=== PATIENT | female | born 1975 | race Two or more races ===

== ENCOUNTER 2020-09-04 01:02 | Emergency (ER) | payer OTHER, SELFPAY ==
[2020-09-04 01:06] VITALS: BP 136/98; PULSE 79; RESP 20; TEMP 37.6; O2SAT 99; BMI 40.7
--- NOTE | 2020-09-04 03:12 | ED.BACK ---
HPI - Back Pain/Injury General Chief Complaint: Back Pain/Injury Stated Complaint: LOWER BACK PAIN Time Seen by Provider: 09/04/20 02:48 History of Present Illness HPI Narrative: This is a 45-year-old female with past medical history of chronic back and arthritis who presents with acute onset left lower back pain and radiation into the left lower extremity without associated numbness / tingling / weakness. In addition, patient denies any trauma associated with this and also denies any fevers, chills, nausea, vomiting, diarrhea, urinary pain/ burning /frequency. Patient states she is not taken anything for the discomfort at this time. Related Data Allergies Allergy/AdvReac Type Severity Reaction Status Date / Time acetaminophen [From PERCOCET] Allergy Unknown ITCHING Verified 09/04/20 01:11 oxycodone [From PERCOCET] Allergy Unknown ITCHING Verified 09/04/20 01:11 Review of Systems Review of Systems: Pertinent positives and negatives as stated in the HPI 10 point review of systems is otherwise negative. [facility] Past Medical History Source: nursing notes reviewed Medical History Arthritis Back pain Surgical History History of hysterectomy Social History Social History Advance Directives: No Advance Directives Information Provided: No Physical Exam Vital Signs: Vital Signs: Vital Signs Temp Pulse Resp BP Pulse Ox 09/04/20 01:06 99.7 F 79 20 136/98 H 99 Body Mass Index 40.7 VITAL SIGNS: Reviewed. GENERAL: Well developed, well nourished, in no acute distress. HEAD: Normocephalic/atraumatic, EYES: PERRLA, EOMI intact without pain, no nystagmus/pallor/icterus noted EARS: Ext canals without abnormality, TMs non-bulging and non-erythematous NOSE: Nares patent bilateral OROPHARYNX: no oral lesions noted, posterior pharynx clear and non-erythematous without noted tonsillar enlargement/erythema/exudates NECK: Supple, no adenopathy LUNGS: Normal breath sounds. No adventitious sounds or accessory muscle use. SpO2<99> CARDIOVASCULAR: Regular rate and rhythm without noted murmurs, no JVD or lower extremity edema. ABDOMEN: Soft, non-tender, non-distended with bowel sounds. No rigidity. No guarding. No palpable masses or hernias noted MUSCULOSKELETAL: No tenderness, deformities, or effusions noted on gross inspection. EXTREMITIES: No cyanosis, clubbing or edema. SKIN: Inspection of the skin reveals no rashes, ulcerations, jaundice, pallor, or petechiae. NEUROLOGIC: Alert and oriented x 4. Strength and sensation to light touch were grossly intact x 4. Course Course Course Narrative: This is a 45-year-old female with history and clinical presentation most consistent with Lumbago but will rule out UTI and doubt renal colic. On review of urinalysis it is negative for any evidence of infection and urinary is also negative. Patient received a combination of analgesics as well as a lidocaine patch. Unable to re-evaluate as patient became upset and eloped. MDM - Back Pain/Injury Lab Data Labs: Lab Results 09/04/20 Range/Units 03:04 Urine Color YELLOW Urine Appearance CLEAR Urine pH 6.0 (5.0-8.0) Ur Specific [place] >= 1.030 H (1.005-1.025) Urine Protein NEG (NEG-TRACE) MG/DL Urine Glucose (UA) NEG (NEG) MG/DL Urine Ketones NEG (NEG) MG/DL Urine Blood NEG (NEG) Urine Nitrite NEG (NEG) Ur Leukocyte Esterase NEG (NEG) Urine Test NEGATIVE (NEGATIVE) Discharge Plan Discharge Clinical Impression: Back pain Patient Disposition: Elopement Interventions: ED Discharge Assessment Last Done: 09/04/20 03:36 Discharge Date/Time: 09/04/20 03:37
[2020-09-04] MEDS: Lidocaine 4 % Patch ADH..PATCH 1 PATCH TRANSDERMA (03:18)
[2020-09-04] MEDS: Ketorolac Tromethamine 15 MG/ML VIAL IM (03:18)
--- NOTE | 2020-09-04 03:27 | PC.NURSE ---
pt wants to leave without paperwork. does not want to wait for urine sample.
[2020-09-04 03:34] LABS: Appearance Urine CLEAR; Color Urine YELLOW; Glucose Urine UA NEG (NEG); Leukocyte Esterase Urine NEG (NEG); Nitrite Urine NEG (NEG); Specific Gravity - Urine >= 1.030 (1.005-1.025); Urine Blood NEG (NEG); Urine Ketones NEG (NEG); Urine Protein NEG (NEG-TRACE)
[2020-09-04 03:35] LABS: UPreg QC Valid YES; Urine Pregnancy NEGATIVE (NEGATIVE)
== END 2020-09-04 03:37 | disposition left against medical advice (07) ==
PROVIDERS: Emergency Provider Student in an Organized Health Care Education/Training Program; PCP Internal Medicine
DX: M54.5 Low back pain (principal)
CPT/HCPCS: 81003; 81025; 96372; 99283; 99284; J1885

== ENCOUNTER 2020-11-12 13:08 | Outpatient (REF) | payer OTHER, SELFPAY ==
[2020-11-12 13:47] LABS: COVID-19 Test Negative (Negative); IDNOW Serial# 55D5AD1C
== END 2020-11-12 13:09 | disposition home or self-care (01) ==
LOC: HO.EMPCOV 13:08
PROVIDERS: Visit Provider Internal Medicine
DX: Z20.828 Contact with and (suspected) exposure to other viral communicable diseases (principal)
CPT/HCPCS: 87635; C9803

== ENCOUNTER 2020-11-26 10:57 | Outpatient (REF) | payer OTHER, SELFPAY ==
[2020-11-26 11:31] LABS: COVID-19 Test Negative (Negative); IDNOW Serial# 55D5AD1C
== END 2020-11-26 10:58 | disposition home or self-care (01) ==
LOC: HO.EMPCOV 10:57
PROVIDERS: Visit Provider Internal Medicine
DX: Z20.822 Contact with and (suspected) exposure to COVID-19 (principal)
CPT/HCPCS: 36415; 87635; C9803

== ENCOUNTER 2020-12-07 07:58 | Outpatient (REF) | payer OTHER, SELFPAY ==
[2020-12-07 08:20] LABS: COVID-19 Test Negative (Negative)
== END 2020-12-07 07:59 | disposition home or self-care (01) ==
LOC: HO.EMPCOV 07:58
PROVIDERS: Visit Provider Internal Medicine
DX: Z20.822 Contact with and (suspected) exposure to COVID-19 (principal)
CPT/HCPCS: 36415; 87635; C9803

== ENCOUNTER 2020-12-14 08:03 | Outpatient (REF) | payer OTHER, SELFPAY ==
[2020-12-14 11:28] LABS: MANUAL DIFF FLAG NO
[2020-12-14 11:32] LABS: Basophils Percent Auto 0.5 % (0-2); Eosinophils Absolute Auto 0.1 X10*3/uL (0.0-0.4); Hematocrit 45.1 % (37-47); Hemoglobin 14.5 g/dl (12.0-16.0); Lymphocytes Absolute Auto 2.2 X10*3/uL (1.2-4.9); Lymphocytes Percent Auto 51.3 % (20-40); Mean Corpuscular HGB Conc 32.2 g/dl (31.0-35.0); Mean Corpuscular Hemoglobin 27.8 pg (27.0-33.0); Mean Corpuscular Volume 86.6 fL (80-98); Mean Platelet Volume 11.6 fL (9.4-12.3); Monocytes Absolute Auto 0.4 X10*3/uL (0.1-1.2); Monocytes Percent Auto 9.4 % (2-11); Neutrophils Absolute Auto 1.6 X10*3/uL (2.0-8.3); Neutrophils Percent Auto 35.8 % (45-73); Platelet Count 201 X10*3/uL (160-400); Red Blood Count 5.21 X10*6/uL (4.20-5.50); Red Cell Distribution Width 13.5 % (11.0-16.0); White Blood Count 4.4 X10*3/uL (4.8-10.8)
[2020-12-14 12:21] LABS: Alanine Aminotransferase 57 U/L (0-31); Albumin Level 4.4 g/dL (3.5-5.0); Alkaline Phosphatase 72 U/L (39-117); Anion Gap 12 (12-20); Aspartate Amino Transferase 30 U/L (5-31); Bilirubin Total 0.6 mg/dL (0.0-1.0); Blood Urea Nitrogen 15 mg/dL (9-16); Calcium 9.5 mg/dL (8.4-10.2); Carbon Dioxide 28 mmol/L (22-29); Chloride 106 mmol/L (96-108); Estimated Glomerular Filt Rate > 60; Glucose Fasting 96 mg/dL (60-99); Potassium 4.7 mmol/L (3.3-5.1); Sodium 141 mmol/L (135-145); Total Protein 7.2 g/dL (6.5-8.0)
== END 2020-12-14 08:04 | disposition home or self-care (01) ==
LOC: HO.WFDLDS 08:03
PROVIDERS: Visit Provider Internal Medicine
DX: R42 Dizziness and giddiness (principal)
CPT/HCPCS: 36415; 80053; 85025

== ENCOUNTER → 2021-01-03 10:30 | Outpatient (BNVA) | payer OTHER, SELFPAY | PROVIDERS: Visit Provider Anesthesiology | DX: M47.27 Other spondylosis with radiculopathy, lumbosacral region (principal); M51.36 Other intervertebral disc degeneration, lumbar region | CPT/HCPCS: 99212 ==

== ENCOUNTER 2021-01-16 16:45 | Outpatient (REF) | payer OTHER, SELFPAY ==
--- NOTE | ~2021-01-16 | XR_ITS ---
EXAMINATION: XR FOOT, RIGHT CLINICAL INFORMATION: M79.674 - Pain in right toe(s). COMPARISON: None. TECHNIQUE: AP, lateral, and oblique views of the right foot. FINDINGS: There is no acute or healing fracture, dislocation, destructive process. The bony mineralization is normal. There is no focal joint narrowing or erosive change. There are posterior and plantar calcaneal spurs. The retrocalcaneal recess is preserved. The subtalar joint is unremarkable. XR/XR foot RT min 3V IMPRESSION: 1. Posterior and plantar calcaneal spurs. 2. No joint narrowing or erosive changes.
== END 2021-01-16 16:46 | disposition home or self-care (01) ==
LOC: HO.XRAY 16:45
PROVIDERS: PCP Internal Medicine; Visit Provider Internal Medicine
DX: M79.674 Pain in right toe(s) (principal)
CPT/HCPCS: 73630

== ENCOUNTER 2021-02-05 06:08 | Outpatient (REF) | payer OTHER, SELFPAY ==
--- NOTE | ~2021-02-05 | FL_ITS ---
EXAMINATION: XR FLUOROSCOPY WITH IMAGES CLINICAL INFORMATION: Spondylosis with radiculopathy COMPARISON: Previous exam 03/06/2020 TECHNIQUE: Fluoroscopy performed by Meliza Webb NP. Fluoroscopy time: 0.7 minutes DAP: 12 Gycm2 Images: 2 FINDINGS: Images demonstrate needles and contrast injection along the lateral left L3 and L5 vertebral bodies for left L3 L4 and L5 epidural injection. FL/FL guidance in treatment room IMPRESSION: Fluoroscopy guidance for left spinal epidural injection.
== END 2021-02-05 06:09 | disposition home or self-care (01) ==
LOC: HO.RADIR 06:08
PROVIDERS: Visit Provider Anesthesiology
DX: M47.27 Other spondylosis with radiculopathy, lumbosacral region (principal); M51.36 Other intervertebral disc degeneration, lumbar region
CPT/HCPCS: 64483; 64484; J3300; Q9967

== ENCOUNTER 2021-02-06 08:40 | Outpatient (REF) | payer OTHER, SELFPAY ==
[2021-02-06 10:09] LABS: Alanine Aminotransferase 46 U/L (0-31); Albumin Level 4.9 g/dL (3.5-5.0); Alkaline Phosphatase 73 U/L (39-117); Anion Gap 18 (12-20); Aspartate Amino Transferase 23 U/L (5-31); Bilirubin Total 0.5 mg/dL (0.0-1.0); Blood Urea Nitrogen 15 mg/dL (9-16); Calcium 10.4 mg/dL (8.4-10.2); Carbon Dioxide 26 mmol/L (22-29); Chloride 104 mmol/L (96-108); Cholesterol 178 mg/dL; Estimated Glomerular Filt Rate > 60; Glucose Fasting 103 mg/dL (60-99); HDL Cholesterol 54 mg/dL; LDL Cholesterol Calculated 107 mg/dl; Potassium 5.2 mmol/L (3.3-5.1); Sodium 143 mmol/L (135-145); Total Protein 8.1 g/dL (6.5-8.0); Triglycerides 88 mg/dL
== END 2021-02-06 08:41 | disposition home or self-care (01) ==
LOC: HO.LAB 08:40
PROVIDERS: PCP Internal Medicine; Visit Provider Internal Medicine
DX: E66.9 Obesity, unspecified (principal)
CPT/HCPCS: 36415; 80053; 80061

== ENCOUNTER 2021-02-15 14:59 | Outpatient (REF) | payer OTHER, SELFPAY ==
--- NOTE | ~2021-02-15 | MM_ITS ---
EXAMINATION: MM SCREENING DIGITAL BREAST TOMOSYNTHESIS, BILATERAL CLINICAL INFORMATION: Screening. Asymptomatic. The lifetime risk of breast cancer based on the Tyrer-Cuzick Model is 9%. COMPARISON: Mammography: 09/09/2018 (new baseline) TECHNIQUE: Digital breast tomosynthesis is performed in both the craniocaudal and mediolateral oblique views along with computer-aided detection (CAD). Synthesized 2D images are generated from the tomosynthesis. FINDINGS: There are scattered areas of fibroglandular density (ACR BI-RADS breast composition Category b). There are no significant masses, abnormal calcifications, or other abnormalities. Parenchymal pattern is similar to initial new baseline exam. The skin contours are smooth. No significant changes. MM/MM tomosynthesis screening BI IMPRESSION: No mammographic evidence of malignancy. ASSESSMENT: BI-RADS 1: Negative RECOMMENDATION: Routine annual mammography screening. This patient's information was entered into a reminder system with a target due date for their next mammogram.
== END 2021-02-15 15:00 | disposition home or self-care (01) ==
LOC: HO.MAMMO 14:59
PROVIDERS: Visit Provider Internal Medicine
DX: Z12.31 Encounter for screening mammogram for malignant neoplasm of breast (principal)
CPT/HCPCS: 77063; 77067

== ENCOUNTER 2021-02-20 12:08 | Outpatient (REF) | payer OTHER, SELFPAY ==
[2021-02-20 12:51] LABS: COVID-19 Test Negative (Negative)
== END 2021-02-20 12:09 | disposition home or self-care (01) ==
LOC: HO.EMPCOV 12:08
PROVIDERS: Visit Provider Internal Medicine
DX: Z20.822 Contact with and (suspected) exposure to COVID-19 (principal)
CPT/HCPCS: 36415; 87635; C9803

== ENCOUNTER → 2021-03-07 14:07 | Outpatient (REF) | payer OTHER, SELFPAY | LOC: HO.SL 14:07 | PROVIDERS: PCP Internal Medicine; Visit Provider Internal Medicine | DX: G47.33 Obstructive sleep apnea (adult) (pediatric) (principal) | CPT/HCPCS: 95806 ==

== ENCOUNTER → 2021-03-28 07:39 | Outpatient (BNVA) | payer OTHER, SELFPAY | PROVIDERS: PCP Internal Medicine; Visit Provider Internal Medicine Endocrinology, Diabetes & Metabolism | DX: E16.2 Hypoglycemia, unspecified (principal); E66.01 Morbid (severe) obesity due to excess calories; Z68.41 Body mass index [BMI] 40.0-44.9, adult | CPT/HCPCS: 99202 ==

== ENCOUNTER → 2021-04-01 15:30 | Outpatient (BNVA) | payer OTHER, SELFPAY | PROVIDERS: PCP Internal Medicine; Visit Provider Internal Medicine | DX: E66.01 Morbid (severe) obesity due to excess calories (principal); G47.33 Obstructive sleep apnea (adult) (pediatric) | CPT/HCPCS: 99202 ==

== ENCOUNTER 2021-04-13 07:19 | Outpatient (REF) | payer OTHER, SELFPAY | END 2021-04-13 07:20 | disposition home or self-care (01) | LOC: HO.LAB 07:19 | PROVIDERS: PCP Internal Medicine; Visit Provider Internal Medicine Endocrinology, Diabetes & Metabolism | DX: Z13.89 Encounter for screening for other disorder (principal) ==

== ENCOUNTER 2021-04-16 07:20 | Outpatient (REF) | payer OTHER, SELFPAY ==
[2021-04-16 09:13] LABS: Hematocrit 44.2 % (37-47); Hemoglobin 14.2 g/dl (12.0-16.0); Mean Corpuscular HGB Conc 32.1 g/dl (31.0-35.0); Mean Corpuscular Hemoglobin 28.3 pg (27.0-33.0); Mean Corpuscular Volume 88.2 fL (80-98); Mean Platelet Volume 11.4 fL (9.4-12.3); Platelet Count 192 X10*3/uL (160-400); Red Blood Count 5.01 X10*6/uL (4.20-5.50); Red Cell Distribution Width 13.7 % (11.0-16.0); White Blood Count 4.4 X10*3/uL (4.8-10.8)
[2021-04-16 09:17] LABS: Glucose Fasting 96 mg/dL (60-99)
[2021-04-16 09:34] LABS: Estimated Average Glucose 111 mg/dL; Hemoglobin A1c % 5.5 %
[2021-04-16 09:36] LABS: Anion Gap 13 (12-20); Blood Urea Nitrogen 15 mg/dL (9-16); Calcium 9.8 mg/dL (8.4-10.2); Carbon Dioxide 28 mmol/L (22-29); Chloride 106 mmol/L (96-108); Estimated Glomerular Filt Rate > 60; Glucose Fasting 93 mg/dL (60-99); Potassium 4.4 mmol/L (3.3-5.1); Sodium 143 mmol/L (135-145)
[2021-04-16 09:52] LABS: Free T4 (Free Thyroxine) 0.92 ng/dL (0.71-1.85); Thyroid Stimulating Hormone 0.49 uIU/mL (0.32-4.0)
[2021-04-16 09:59] LABS: Glucose 1 Hour 128 mg/dL
[2021-04-16 10:32] LABS: Glucose 2 Hour 99 mg/dL
[2021-04-16 11:42] LABS: Glucose 3 Hour 73 mg/dL
[2021-04-16 14:01] LABS: Glucose 4 Hour 74 mg/dL
[2021-04-18 00:56] LABS: Adrenocorticotropic Hormone 8 pg/mL (6-50)
[2021-04-18 04:56] LABS: C Peptide 3.48 ng/mL (0.80-3.85)
[2021-04-18 06:57] LABS: DHEA Sulfate 129 mcg/dL (19-231); Insulin Level Total 26.4 uIU/mL
[2021-04-19 14:32] LABS: Insulin Growth Factor 2 626 ng/mL (267-616)
[2021-04-20 17:31] LABS: Insulinoma associated 2 aatb <5.4 U/mL (<5.4)
[2021-04-24 23:21] LABS: Insulin Auto Antibody <0.4 U/mL (<0.4)
[2021-05-01 07:28] LABS: Chlorpropamide None Detected; Glimepiride None Detected; Glipizide None Detected; Glyburide None Detected; Nateglinide None Detected; Pioglitazone None Detected; Repaglinide None Detected; Rosiglitazone None Detected; Tolazamide None Detected; Tolbutamide None Detected
== END 2021-04-16 07:21 | disposition home or self-care (01) ==
LOC: HO.LAB 07:20
PROVIDERS: PCP Internal Medicine; Visit Provider Internal Medicine Endocrinology, Diabetes & Metabolism
DX: E16.2 Hypoglycemia, unspecified (principal)
CPT/HCPCS: 36415; 80048; 80337; 82010; 82024; 82533; 82627; 82952; 83036; 83525; 83789; 84206; 84439; 84443; 84681; 85027; 86337

== ENCOUNTER → 2021-04-19 11:02 | Outpatient (BNVA) | payer OTHER, SELFPAY | PROVIDERS: PCP Internal Medicine; Visit Provider Dietitian, Registered | DX: E66.01 Morbid (severe) obesity due to excess calories (principal); Z68.41 Body mass index [BMI] 40.0-44.9, adult | CPT/HCPCS: 97802 ==

== ENCOUNTER 2021-05-13 15:09 | Outpatient (REF) | payer OTHER, SELFPAY ==
--- NOTE | ~2021-05-13 | XR_ITS ---
EXAMINATION: XR ANKLE, LEFT CLINICAL INFORMATION: Injury COMPARISON: None TECHNIQUE: AP, lateral, and mortise views of the left ankle. FINDINGS: Bone alignment is normal. No fracture or dislocation is seen. The ankle mortise is normal. There is lateral soft tissue swelling. There are small calcaneal spurs. XR/XR ankle LT min 3V IMPRESSION: No fracture or dislocation. Lateral soft tissue swelling.
[2021-05-13 17:04] LABS: Alanine Aminotransferase 30 U/L (0-31); Albumin Level 4.5 g/dL (3.5-5.0); Alkaline Phosphatase 75 U/L (39-117); Anion Gap 11 (12-20); Aspartate Amino Transferase 18 U/L (5-31); Bilirubin Total 0.2 mg/dL (0.0-1.0); Blood Urea Nitrogen 14 mg/dL (9-16); Calcium 9.7 mg/dL (8.4-10.2); Carbon Dioxide 27 mmol/L (22-29); Chloride 107 mmol/L (96-108); Estimated Glomerular Filt Rate > 60; Glucose Random 92 mg/dL (60-115); Potassium 4.1 mmol/L (3.3-5.1); Sodium 141 mmol/L (135-145); Total Protein 7.2 g/dL (6.5-8.0)
[2021-05-17 15:17] LABS: Insulin Growth Factor 2 644 ng/mL (267-616)
== END 2021-05-13 15:10 | disposition home or self-care (01) ==
LOC: HO.HMGCX 15:09
PROVIDERS: Internal Medicine Endocrinology, Diabetes & Metabolism; PCP Internal Medicine; Visit Provider Nurse Practitioner Family
DX: E16.2 Hypoglycemia, unspecified (principal); S99.912A Unspecified injury of left ankle, initial encounter
CPT/HCPCS: 36415; 73610; 80053; 83789

== ENCOUNTER → 2021-05-15 13:22 | Outpatient (BNVA) | payer OTHER, SELFPAY | PROVIDERS: PCP Internal Medicine; Visit Provider Internal Medicine ==

== ENCOUNTER → 2021-06-04 08:46 | Outpatient (BNVA) | payer OTHER, SELFPAY | PROVIDERS: PCP Internal Medicine; Visit Provider Internal Medicine Endocrinology, Diabetes & Metabolism ==

== ENCOUNTER 2021-06-08 07:20 | Outpatient (REF) | payer OTHER, SELFPAY ==
[2021-06-08 08:08] LABS: Glucose Fasting 97 mg/dL (60-99)
[2021-06-14 13:52] LABS: IGF-1 (Somatomedin C) 202 ng/mL (52-328); IGF-1 Z Score (Female) 0.8 SD (-2.0 - +2.0)
[2021-06-14 16:02] LABS: Insulin Growth Factor 2 630 ng/mL (267-616)
[2021-06-22 16:27] LABS: IGF Binding Protein 2 38 ng/mL (38-267)
== END 2021-06-08 07:21 | disposition home or self-care (01) ==
LOC: HO.LAB 07:20
PROVIDERS: PCP Internal Medicine; Visit Provider Internal Medicine Endocrinology, Diabetes & Metabolism
DX: E16.2 Hypoglycemia, unspecified (principal)
CPT/HCPCS: 36415; 82947; 83519; 83789; 84305

== ENCOUNTER 2021-08-21 08:06 | Outpatient (REF) | payer OTHER, SELFPAY ==
--- NOTE | 2021-08-21 08:09 | EMG_ITS ---
This is a 46-year-old woman with more than 1 year history of bilateral upper extremity pain, numbness, and tingling with the right side worse than the left. She is on no medications. Neurological examination is normal. No Tinel or Phalen sign. IMPRESSION: Rule out carpal tunnel syndrome. Nerve conduction EMG study: Normal electrodiagnostic study of both upper extremities with no evidence of carpal tunnel syndrome or nerve entrapment. Normal EMG of the right C5-T1 innervated muscles. MD SANDEE Nielsen/ALEKSANDER / [id number]
== END 2021-08-21 08:07 | disposition home or self-care (01) ==
LOC: HO.NEURO 08:06
PROVIDERS: Visit Provider Internal Medicine
DX: G56.00 Carpal tunnel syndrome, unspecified upper limb (principal)
CPT/HCPCS: 95885; 95913

== ENCOUNTER → 2021-08-28 08:17 | Outpatient (BNVA) | payer OTHER, SELFPAY | PROVIDERS: Visit Provider Orthopaedic Surgery | DX: M65.312 Trigger thumb, left thumb (principal); R20.0 Anesthesia of skin; M79.642 Pain in left hand; M79.641 Pain in right hand; M47.27 Other spondylosis with radiculopathy, lumbosacral region; G47.33 Obstructive sleep apnea (adult) (pediatric); E66.01 Morbid (severe) obesity due to excess calories; Z68.41 Body mass index [BMI] 40.0-44.9, adult; Z88.6 Allergy status to analgesic agent | CPT/HCPCS: 99202 ==

== ENCOUNTER → 2021-09-18 07:33 | Outpatient (BNVA) | payer OTHER, SELFPAY | PROVIDERS: Visit Provider Internal Medicine | DX: L68.0 Hirsutism (principal); E16.2 Hypoglycemia, unspecified; E66.01 Morbid (severe) obesity due to excess calories; E55.9 Vitamin D deficiency, unspecified; Z79.899 Other long term (current) drug therapy | CPT/HCPCS: 99212 ==

== ENCOUNTER 2021-09-20 06:10 | Outpatient (REF) | payer OTHER, SELFPAY ==
[2021-09-20 07:29] LABS: Glucose Fasting 102 mg/dL (60-99)
[2021-09-20 07:35] LABS: Alanine Aminotransferase 78 U/L (0-31); Albumin Level 4.4 g/dL (3.5-5.0); Alkaline Phosphatase 67 U/L (39-117); Anion Gap 12 (12-20); Aspartate Amino Transferase 41 U/L (5-31); Bilirubin Total 0.8 mg/dL (0.0-1.0); Blood Urea Nitrogen 15 mg/dL (9-16); Calcium 9.3 mg/dL (8.4-10.2); Carbon Dioxide 24 mmol/L (22-29); Chloride 109 mmol/L (96-108); Cholesterol 158 mg/dL; Estimated Glomerular Filt Rate > 60; Glucose Random 104 mg/dL (60-115); HDL Cholesterol 43 mg/dL; LDL Cholesterol Calculated 90 mg/dl; Potassium 4.2 mmol/L (3.3-5.1); Sodium 141 mmol/L (135-145); Total Protein 7.3 g/dL (6.5-8.0); Triglycerides 126 mg/dL
[2021-09-20 07:56] LABS: Free T4 (Free Thyroxine) 0.94 ng/dL (0.71-1.85); Thyroid Stimulating Hormone 1.08 uIU/mL (0.32-4.0)
[2021-09-20 08:01] LABS: Glucose 1 Hour 158 mg/dL
[2021-09-20 08:14] LABS: Estimated Average Glucose 117 mg/dL; Hemoglobin A1c % 5.7 %
[2021-09-20 09:02] LABS: Glucose 2 Hour 115 mg/dL
[2021-09-21 14:31] LABS: LDL Cholesterol Direct 92 mg/dL (<100)
[2021-09-22 08:47] LABS: Follicle Stimulating Hormone 74.6 mIU/mL; Lutenizing Hormone 34.1 mIU/mL; Prolactin 19.3 ng/mL
[2021-09-23 16:57] LABS: DHEA Sulfate 106 mcg/dL (19-231); Sex Hormone Binding Globulin 15 nmol/L (17-124)
[2021-09-23 17:52] LABS: Adrenocorticotropic Hormone 21 pg/mL (6-50)
[2021-09-26 13:56] LABS: Testosterone, Free 5.2 pg/mL (0.1-6.4); Testosterone, Total 27 ng/dL (2-45)
[2021-09-27 00:36] LABS: Androstenedione 164 ng/dL
[2021-09-28 23:12] LABS: Insulin Growth Factor 2 751 ng/mL (267-616)
[2021-10-09 10:51] LABS: Estradiol, Ultrasensitive 14 pg/mL
== END 2021-09-20 06:11 | disposition home or self-care (01) ==
LOC: HO.LAB 06:10
PROVIDERS: Internal Medicine Endocrinology, Diabetes & Metabolism; PCP Internal Medicine; Visit Provider Internal Medicine
DX: L68.0 Hirsutism (principal); E55.9 Vitamin D deficiency, unspecified; E16.2 Hypoglycemia, unspecified
CPT/HCPCS: 36415; 80053; 80061; 82024; 82157; 82306; 82533; 82627; 82670; 82681; 83001; 83002; 83036; 83498; 83721; 83789; 84146; 84270; 84402; 84403; 84439; 84443

== ENCOUNTER 2021-09-25 07:51 | Outpatient (REF) | payer OTHER, SELFPAY ==
[2021-09-25 08:52] LABS: Alanine Aminotransferase 92 U/L (0-31); Albumin Level 4.5 g/dL (3.5-5.0); Alkaline Phosphatase 70 U/L (39-117); Aspartate Amino Transferase 50 U/L (5-31); Bilirubin Direct 0.2 mg/dL (0.0-0.5); Bilirubin Total 0.5 mg/dL (0.0-1.0); Total Protein 7.2 g/dL (6.5-8.0)
== END 2021-09-25 07:52 | disposition home or self-care (01) ==
LOC: HO.LAB 07:51
PROVIDERS: PCP Internal Medicine; Visit Provider Internal Medicine
DX: E66.01 Morbid (severe) obesity due to excess calories (principal); Z68.41 Body mass index [BMI] 40.0-44.9, adult
CPT/HCPCS: 36415; 80076

== ENCOUNTER 2021-10-01 07:40 | Outpatient (REF) | payer OTHER, SELFPAY ==
--- NOTE | ~2021-10-01 | CT_ITS ---
EXAMINATION: CT ABDOMEN AND PELVIS WITH CONTRAST CLINICAL INFORMATION: Hypoglycemia. COMPARISON: Previous abdominal ultrasound and MRI pelvis from 2019 TECHNIQUE: Multidetector volumetric images were obtained from the superior aspect of the liver through the pubic symphysis following administration 85 mL of Omnipaque 350 intravenous contrast. Sagittal and coronal reformatted images were obtained on the technologist's workstation. Oral contrast: Yes. This CT examination was performed using dose optimization techniques as appropriate, variously including the following: *Automated exposure control *Adjustment of mA and/or kV according to patient size (this includes techniques or standardized protocols for targeted exams where dose is matched to indication/reason for exam; i.e. extremities or head) *Use of iterative reconstruction technique DLP: 778 mGy-cm FINDINGS: LIVER, GALLBLADDER, AND BILIARY TREE: The liver is low in attenuation suggestive of fatty infiltration. The liver is otherwise unremarkable. The gallbladder is unremarkable with no evidence of radiopaque gallstones, gallbladder wall thickening, or obvious pericholecystic inflammatory changes. PANCREAS: Unremarkable. SPLEEN: Unremarkable. ADRENAL GLANDS: Unremarkable. KIDNEYS AND URETERS: The kidneys are normal in size, shape, and attenuation. No hydronephrosis, hydroureter, or calculi seen. No perinephric stranding. BLADDER: Unremarkable. GASTROINTESTINAL TRACT: The small and large bowel are unremarkable. The appendix is unremarkable. ABDOMINAL WALL: There is a small umbilical hernia containing fat. LYMPH NODES: Normal. VASCULAR: Unremarkable. PELVIC VISCERA: The uterus appears to have been removed. No pelvic mass. OSSEOUS STRUCTURES: There is degenerative disc disease at L5-S1. CT/CT abdomen pelvis w con IMPRESSION: Fatty liver. Small umbilical hernia containing fat.
--- NOTE | ~2021-10-01 | CT_ITS ---
EXAMINATION: CT CHEST WITH CONTRAST CLINICAL INFORMATION: Hypoglycemia COMPARISON: Previous chest x-ray March 2019 TECHNIQUE: Multidetector volumetric CT imaging of the chest was obtained after the administration of 85 mL of Omnipaque 350 intravenous contrast without immediate adverse reactions. Axial MIP volume rendering provided. Sagittal and coronal reformatted images were obtained. This CT examination was performed using dose optimization techniques as appropriate, variously including the following: *Automated exposure control *Adjustment of mA and/or kV according to patient size (this includes techniques or standardized protocols for targeted exams where dose is matched to indication/reason for exam; i.e. extremities or head) *Use of iterative reconstruction technique DLP: 218 mGy-cm FINDINGS: LUNGS: The lungs are clear. MEDIASTINUM: The mediastinum is normal. PLEURA: There is no pleural effusion. No pleural mass or thickening. AXILLA: No lymphadenopathy. OSSEOUS STRUCTURES: There are degenerative changes of the spine. CT/CT chest w con IMPRESSION: Unremarkable exam.
--- NOTE | ~2021-10-01 | XR_ITS ---
EXAMINATION: XR HIP, LEFT CLINICAL INFORMATION: M25.552 - Pain in left hip COMPARISON: MR pelvis 12/29/2018 TECHNIQUE: Two views of the left hip. FINDINGS: There is no fracture or dislocation or destructive process. No joint narrowing or erosive change or visible chondrocalcinosis. There is some borderline spurring from the lower aspect left hip greater trochanter. There are mild degenerative changes involving the lower lumbar spine L4-L5 and L5-S1. XR/XR hip LT min 2V IMPRESSION: Degenerative changes lower lumbar spine. No left hip joint narrowing or erosive change.
[2021-10-01] MEDS: iohexoL 350 MG/ML 100 ML INFUS..BTL 85 ML IV (10:42)
== END 2021-10-01 07:41 | disposition home or self-care (01) ==
LOC: HO.CT 07:40
PROVIDERS: PCP Internal Medicine; Visit Provider Internal Medicine
DX: E16.2 Hypoglycemia, unspecified (principal); M25.552 Pain in left hip
CPT/HCPCS: 71260; 73502; 74177; Q9967

== ENCOUNTER → 2021-10-22 13:34 | Outpatient (BNVA) | payer OTHER, SELFPAY | PROVIDERS: PCP Internal Medicine; Referring Provider Internal Medicine; Visit Provider Internal Medicine Gastroenterology | DX: R74.01 Elevation of levels of liver transaminase levels (principal); E55.9 Vitamin D deficiency, unspecified | CPT/HCPCS: 99202 ==

== ENCOUNTER 2021-11-13 07:24 | Outpatient (REF) | payer OTHER, SELFPAY | END 2021-11-13 07:25 | disposition home or self-care (01) | LOC: HO.HMGCLDS 07:24 | PROVIDERS: Visit Provider Internal Medicine | DX: Z20.822 Contact with and (suspected) exposure to COVID-19 (principal) | CPT/HCPCS: C9803; U0003; U0005 ==

== ENCOUNTER → 2021-12-12 12:05 | Outpatient (BNVA) | payer OTHER, SELFPAY | PROVIDERS: PCP Internal Medicine; Visit Provider Internal Medicine | DX: E16.2 Hypoglycemia, unspecified (principal); E66.01 Morbid (severe) obesity due to excess calories; E55.9 Vitamin D deficiency, unspecified | CPT/HCPCS: 99212 ==

== ENCOUNTER 2021-12-14 11:08 | Outpatient (REF) | payer OTHER, SELFPAY | END 2021-12-14 11:09 | disposition home or self-care (01) | LOC: HO.LNP 11:08 | PROVIDERS: Visit Provider Physician Assistant Medical | DX: Z20.822 Contact with and (suspected) exposure to COVID-19 (principal) | CPT/HCPCS: U0003; U0005 ==

== ENCOUNTER → 2021-12-25 10:20 | Outpatient (BNVA) | payer OTHER, SELFPAY | PROVIDERS: PCP Internal Medicine; Visit Provider Internal Medicine | DX: G47.33 Obstructive sleep apnea (adult) (pediatric) (principal); E66.01 Morbid (severe) obesity due to excess calories; Z68.41 Body mass index [BMI] 40.0-44.9, adult | CPT/HCPCS: 99212 ==

== ENCOUNTER 2022-02-17 07:47 | Outpatient (REF) | payer OTHER, SELFPAY ==
--- NOTE | ~2022-02-17 | MM_ITS ---
EXAMINATION: MM SCREENING DIGITAL BREAST TOMOSYNTHESIS, BILATERAL CLINICAL INFORMATION: Screening. Asymptomatic. The lifetime risk of breast cancer based on the Tyrer-Cuzick Model is 7%. COMPARISON: Mammography: 02/15/2021, 09/09/2018 (new baseline). TECHNIQUE: Digital breast tomosynthesis is performed in both the craniocaudal and mediolateral oblique views along with computer-aided detection (CAD). Synthesized 2D images are generated from the tomosynthesis. Additional right cleavage, left CC, and bilateral MLO views are provided. FINDINGS: There are scattered areas of fibroglandular density (ACR BI-RADS breast composition Category b). There are no significant masses, abnormal calcifications, or other abnormalities. Parenchymal pattern is similar to prior studies. There is no developing density or architectural abnormality. The axilla and skin contours are unremarkable. No significant changes. MM/MM tomosynthesis screening BI IMPRESSION: No mammographic evidence of malignancy. ASSESSMENT: BI-RADS 1: Negative RECOMMENDATION: Routine annual mammography screening. This patient's information was entered into a reminder system with a target due date for their next mammogram.
== END 2022-02-17 07:48 | disposition home or self-care (01) ==
LOC: HO.MAMMO 07:47
PROVIDERS: Visit Provider Internal Medicine
DX: Z12.31 Encounter for screening mammogram for malignant neoplasm of breast (principal)
CPT/HCPCS: 77063; 77067

== ENCOUNTER 2022-03-01 12:34 | Outpatient (REF) | payer OTHER, SELFPAY ==
[2022-03-01 13:06] LABS: Binax Now Covid-19 Ag Negative (Negative)
[2022-03-01 13:07] LABS: Binax Internal Control QC Valid; Binax Performed by: HO.BONILM
== END 2022-03-01 12:35 | disposition home or self-care (01) ==
LOC: HO.HMGCLDS 12:34
PROVIDERS: PCP Internal Medicine; Visit Provider Physician Assistant Medical
DX: Z13.89 Encounter for screening for other disorder (principal)

== ENCOUNTER → 2022-03-31 14:56 | Outpatient (BNVA) | payer OTHER, SELFPAY | PROVIDERS: PCP Internal Medicine; Visit Provider Internal Medicine | DX: G47.33 Obstructive sleep apnea (adult) (pediatric) (principal); J30.9 Allergic rhinitis, unspecified; R05.9 Cough, unspecified; E66.01 Morbid (severe) obesity due to excess calories; Z68.41 Body mass index [BMI] 40.0-44.9, adult | CPT/HCPCS: 99212 ==

== ENCOUNTER 2022-04-15 16:39 | Outpatient (REF) | payer OTHER, SELFPAY ==
--- NOTE | ~2022-04-15 | XR_ITS ---
EXAMINATION: XR ANKLE, LEFT CLINICAL INFORMATION: Enthesopathy. COMPARISON: Radiograph of the left ankle dated from 05/13/2021. TECHNIQUE: AP, lateral, and mortise views of the left ankle. XR/XR ankle LT 2V FINDINGS/IMPRESSION: No acute fractures or malalignment. The ankle mortise is congruent. A small plantar calcaneus spur is redemonstrated. There is diffuse nonspecific soft tissue swelling.
== END 2022-04-15 16:40 | disposition home or self-care (01) ==
LOC: HO.XRAY 16:39
PROVIDERS: PCP Internal Medicine; Visit Provider Physician Assistant
DX: M77.52 Other enthesopathy of left foot and ankle (principal)
CPT/HCPCS: 73600

== ENCOUNTER 2022-04-22 09:37 | Outpatient (REF) | payer OTHER, SELFPAY ==
[2022-04-22 10:56] LABS: Influenza A PCR NEGATIVE (Negative); Influenza B PCR NEGATIVE (Negative); Resp Syncy Virus RNA Qual PCR NEGATIVE (Negative); SARS COV2 PCR INHOUSE NEGATIVE (Negative)
== END 2022-04-22 09:38 | disposition home or self-care (01) ==
LOC: HO.LAB 09:37
PROVIDERS: PCP Internal Medicine; Visit Provider Internal Medicine
DX: Z20.822 Contact with and (suspected) exposure to COVID-19 (principal); R05.9 Cough, unspecified
CPT/HCPCS: 0241U

== ENCOUNTER 2022-04-29 07:43 | Outpatient (REF) | payer OTHER, SELFPAY ==
[2022-04-29 08:21] LABS: MANUAL DIFF FLAG NO
[2022-04-29 08:44] LABS: Basophils Percent Auto 0.6 % (0-2); Eosinophils Absolute Auto 0.1 X10*3/uL (0.0-0.4); Eosinophils Percent Auto 2.4 % (0-4); Hematocrit 42.5 % (37.0-47.0); Hemoglobin 14.2 g/dl (12.0-16.0); Imm Gran Abs Auto 0.02 X10*3/uL (0.00-0.03); Imm Gran Pct Auto 0.4 % (0.0-0.4); Lymphocytes Absolute Auto 2.3 X10*3/uL (1.2-4.9); Lymphocytes Percent Auto 46.2 % (20-40); Mean Corpuscular HGB Conc 33.4 g/dl (31.0-35.0); Mean Corpuscular Hemoglobin 28.3 pg (27.0-33.0); Mean Corpuscular Volume 84.7 fL (80.0-98.0); Monocytes Absolute Auto 0.4 X10*3/uL (0.1-1.2); Monocytes Percent Auto 7.1 % (2-11); Neutrophils Absolute Auto 2.2 x10*3/uL (2.0-8.3); Neutrophils Percent Auto 43.3 % (45-73); Platelet Count 226 X10*3/uL (160-400); Red Blood Count 5.02 X10*6/uL (4.20-5.50); Red Cell Distribution Width 13.8 % (11.0-16.0)
[2022-04-29 08:51] LABS: Prothrombin Time 11.1 SEC (9.9-13.0)
[2022-04-29 09:11] LABS: Alanine Aminotransferase 88 U/L (0-31); Albumin Level 4.4 g/dL (3.5-5.0); Alkaline Phosphatase 73 U/L (39-117); Anion Gap 12 (12-20); Aspartate Amino Transferase 38 U/L (5-31); Bilirubin Total 0.4 mg/dL (0.0-1.0); Blood Urea Nitrogen 16 mg/dL (9-16); Calcium 9.5 mg/dL (8.4-10.2); Carbon Dioxide 24 mmol/L (22-29); Chloride 107 mmol/L (96-108); Estimated Glomerular Filt Rate > 60; Glucose Random 101 mg/dL (60-115); Iron 83 mcg/dL (30-160); Percent Iron Saturation 26 % (15-50); Potassium 4.2 mmol/L (3.3-5.1); Sodium 139 mmol/L (135-145); Total Iron Binding Capacity 322 mcg/dL (228-428); Total Protein 7.4 g/dL (6.5-8.0); Unsaturated Iron Binding 239 ug/dL
[2022-04-29 09:18] LABS: Erythrocyte Sedimentation Rate 11 MM/HR (0-20)
[2022-04-29 09:32] LABS: Ferritin 246 ng/mL (10-250); Vitamin D 25-OH Total 37.7 ng/mL (>30)
[2022-04-29 09:42] LABS: Folate 19.2 ng/mL (> or = 4.0); Vitamin B12 842 pg/mL (200-900)
[2022-04-29 09:56] LABS: HBS Num1 47.11 mIU/mL (0-7.99); HBc Num1 0.05 S/CO (0.00-0.79); HBsAGNum1 0.19 S/CO (0.00-0.99); Hepatitis B Core Antibody Nonreactive (Nonreactive); Hepatitis B Surface Antigen Negative (Negative); ~HepC Num1 0.07 S/CO (0.00-0.79); ~Hepatitis B Surface Antibody REACTIVE (Nonreactive); ~Hepatitis C Antibody Nonreactive (Nonreactive)
[2022-04-30 07:52] LABS: Hepatitis A Antibody IgM 0.14 Index (0-0.79); ~Hepatitis A Antibody IgM Nonreactive (Nonreactive)
[2022-05-01 13:56] LABS: Immunoglobulin G 1355 mg/dL (600-1640)
[2022-05-01 14:07] LABS: Anti Nuclear Antibody Screen NEGATIVE (NEGATIVE)
[2022-05-02 00:52] LABS: Alpha 1 Anti-trypsin 116 mg/dL (83-199); Ceruloplasmin 27 mg/dL (18-53)
[2022-05-02 15:33] LABS: Zinc 82 mcg/dL (60-130)
[2022-05-02 23:52] LABS: Liver Kidney Microsomal Ab <=20.0 U (<=20.0)
[2022-05-03 07:52] LABS: Gliadin Deamidated IgA Ab 1.5 U/mL; Gliadin Deamidated IgG Ab <1.0 U/mL; Transglutaminase Ab IgG <1.0 U/mL; Transglutaminase IgA <1.0 U/mL
[2022-05-03 13:16] LABS: Aldolase 8.1 U/L (<=8.1)
[2022-05-04 15:17] LABS: Soluble Liver Ag Autoantibody <20.1 U (0.0-20.0)
[2022-05-05 15:06] LABS: Smooth Muscle Antibody <20 U (<20)
[2022-05-05 17:06] LABS: Mitochondrial Antibodies NEGATIVE (NEGATIVE)
== END 2022-04-29 07:44 | disposition home or self-care (01) ==
LOC: HO.LAB 07:43
PROVIDERS: PCP Internal Medicine; Visit Provider Internal Medicine Gastroenterology
DX: K75.81 Nonalcoholic steatohepatitis (NASH) (principal); K52.839 Microscopic colitis, unspecified; R79.82 Elevated C-reactive protein (CRP); E55.9 Vitamin D deficiency, unspecified; R74.01 Elevation of levels of liver transaminase levels; R10.33 Periumbilical pain; G89.29 Other chronic pain
CPT/HCPCS: 36415; 80053; 82085; 82103; 82306; 82390; 82607; 82728; 82746; 82784; 83520; 83540; 84630; 85025; 85610; 85652; 86015; 86038; 86039; 86255; 86256; 86258; 86364; 86376; 86704; 86706; 86709; 86803; 87340

== ENCOUNTER → 2022-05-02 11:05 | Outpatient (BNVA) | payer OTHER, SELFPAY | PROVIDERS: PCP Internal Medicine; Referring Provider Internal Medicine; Visit Provider Internal Medicine Gastroenterology | DX: K75.81 Nonalcoholic steatohepatitis (NASH) (principal) | CPT/HCPCS: 99212 ==

== ENCOUNTER 2022-05-24 14:55 | Emergency (ER) | payer OTHER, SELFPAY | END 2022-05-24 15:09 | disposition left against medical advice (07) | PROVIDERS: Emergency Provider Emergency Medicine | DX: S99.919A Unspecified injury of unspecified ankle, initial encounter (principal); X58.XXXA Exposure to other specified factors, initial encounter; Y93.9 Activity, unspecified; Y92.89 Other specified places as the place of occurrence of the external cause; Y99.9 Unspecified external cause status ==

== ENCOUNTER 2022-07-12 09:24 | Outpatient (REF) | payer OTHER, MEDICAID, SELFPAY ==
[2022-07-12 11:46] LABS: MANUAL DIFF FLAG NO
[2022-07-12 11:57] LABS: Basophils Percent Auto 0.7 % (0-2); Eosinophils Absolute Auto 0.1 X10*3/uL (0.0-0.4); Hematocrit 46.1 % (37.0-47.0); Hemoglobin 15.1 g/dl (12.0-16.0); Lymphocytes Absolute Auto 2.4 X10*3/uL (1.2-4.9); Mean Corpuscular HGB Conc 32.8 g/dl (31.0-35.0); Mean Corpuscular Hemoglobin 27.8 pg (27.0-33.0); Mean Corpuscular Volume 84.9 fL (80.0-98.0); Mean Platelet Volume 11.6 fL (9.4-12.3); Monocytes Absolute Auto 0.3 X10*3/uL (0.1-1.2); Monocytes Percent Auto 7.5 % (2-11); Neutrophils Absolute Auto 1.7 x10*3/uL (2.0-8.3); Neutrophils Percent Auto 37.8 % (45-73); Platelet Count 217 X10*3/uL (160-400); Red Blood Count 5.43 X10*6/uL (4.20-5.50); Red Cell Distribution Width 13.8 % (11.0-16.0); White Blood Count 4.5 X10*3/uL (4.8-10.8)
[2022-07-12 12:04] LABS: Alanine Aminotransferase 69 U/L (0-31); Albumin Level 4.5 g/dL (3.5-5.0); Alkaline Phosphatase 76 U/L (39-117); Anion Gap 15 (12-20); Aspartate Amino Transferase 31 U/L (5-31); Bilirubin Total 0.7 mg/dL (0.0-1.0); Blood Urea Nitrogen 13 mg/dL (9-16); Calcium 9.8 mg/dL (8.4-10.2); Carbon Dioxide 28 mmol/L (22-29); Chloride 105 mmol/L (96-108); Estimated Glomerular Filt Rate > 60; Glucose Fasting 96 mg/dL (60-99); Potassium 4.5 mmol/L (3.3-5.1); Sodium 143 mmol/L (135-145); Total Protein 7.5 g/dL (6.5-8.0)
[2022-07-12 12:29] LABS: Thyroid Stimulating Hormone 0.68 uIU/mL (0.32-4.0); Vitamin D 25-OH Total 31.4 ng/mL (>30)
[2022-07-12 12:38] LABS: Folate 15.5 ng/mL (> or = 4.0); Vitamin B12 416 pg/mL (200-900)
== END 2022-07-12 09:25 | disposition home or self-care (01) ==
LOC: HO.HMGCLDS 09:24
PROVIDERS: PCP Internal Medicine; Visit Provider Internal Medicine
DX: R53.83 Other fatigue (principal); E55.9 Vitamin D deficiency, unspecified; J30.9 Allergic rhinitis, unspecified
CPT/HCPCS: 36415; 80053; 82306; 82607; 82746; 84443; 85025

== ENCOUNTER 2022-09-18 07:01 | Day surgery (SDC) | payer OTHER, MEDICAID, SELFPAY ==
--- NOTE | 2022-09-17 09:47 | P.CONAN_ITS ---
Documented by User: Viri Santiago NP 09/17/22 09:48 HPI - Anesthesia Eval Consult details Narrative: 47yo F for Colonoscopy PMFSH Active Problems Active Problems: All Active Problems (Updated 08/07/22 @ 09:37 by Florin Balbuena PA-C) Viral bronchitis (Acute) Physical exam (Acute) Fatigue (Acute) Left ankle tendinitis (Acute) Cough (Acute) Allergic rhinitis (Acute) Allergies (Acute) Sinusitis, acute frontal (Acute) Nasal congestion (Acute) Back pain (Acute) Left hip pain (Acute) Transaminitis (Acute) Vitamin D deficiency (Acute) Hirsutism (Acute) Bilateral hand pain (Acute) Numbness and tingling in both hands (Acute) Trigger finger of left thumb (Acute) Discomfort of left ear (Acute) Carpal tunnel syndrome (Acute) Ankle injury (Acute) Morbid obesity (Acute) VIRGILIO (obstructive sleep apnea) (Acute) Hypoglycemia (Acute) Toe pain, right (Acute) Disc degeneration, lumbar (Acute) Spondylosis of lumbosacral spine with radiculopathy (Acute) Dizziness (Acute) Elevated blood pressure reading (Acute) Obesity (Acute) Pre-employment health screening examination (Acute) Past Medical History Medical History Allergic rhinitis Arthritis Back pain Cough Disc degeneration, lumbar Discomfort of left ear Dizziness Hirsutism Hypoglycemia Left hip pain Morbid obesity Obesity VIRGILIO (obstructive sleep apnea) Spondylosis of lumbosacral spine with radiculopathy Toe pain, right Transaminitis Vitamin D deficiency Family History Family History Father History of kidney cancer Paternal Uncle Throat cancer Paternal Grandfather Heart disease Other Mental health disorder Surgical History Surgical History History of hysterectomy History of repair of ACL Social History Social History Housing: House Alcohol intake: current Alcohol intake frequency: holidays/special occasions only Alcohol type: beer Patient Tobacco Use Status: Never used Tobacco e-Cigarette/Vaping Use: Never Used Second Hand Smoke Exposure: No Use of substances other than those prescribed or required for medical reasons: No Are you DNR?: No Advance Directives: No Advance Directives Information Provided: Yes service: No 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al status: employed 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al exposures/hazards: No Cognitive needs: No Hearing needs: No Vision needs: Yes Meds Allergies Allergy/AdvReac Type Severity Reaction Status Date / Time oxycodone [From Percocet] Allergy Mild pruritus Verified 08/07/22 09:30 Home Medications Medication Instructions Recorded Confirmed Last Taken Type sbsxwnbi-qoy-qfpsw acid 0.4 tab PO 03/31/22 08/07/22 Unknown History mg-lycopene 300 mcg-lutein 250 mcg tablet (Centrum Silver) tumeric 100 mg-susanna 150 mg-olive cap PO 03/31/22 08/07/22 Unknown History 50 mg-oreg 150 mg-caprylate capsule ubidecarenone-omega 3-vit E 25 1 cap PO DAILY 03/31/22 08/07/22 Unknown History mg-150 (90-60) mg-200 unit capsule (Co S-05-Bhwnnlb E-Fish Oil) vitamin B complex (B 1 tab PO DAILY 03/31/22 08/07/22 Unknown History Complex-Vitamin B12 tablet) Exam Exam Date and Time: September 17, 2022 0947 Pertinent Lab Results Pertinent Lab Results: Laboratory Tests 07/12/22 07/12/22 09:29 09:29 WBC 4.5 L Hgb 15.1 Hct 46.1 Plt Count 217 Sodium 143 Potassium 4.5 Chloride 105 Carbon Dioxide 28 BUN 13 Creatinine 0.82 Assessment and Plan Assessment Anesthesia Assessment: Chart Reviewed Documented by User: Lay Winters MD 09/18/22 07:51 [facility] Past Medical History Medical History Allergic rhinitis Arthritis Back pain Cough Disc degeneration, lumbar Discomfort of left ear Dizziness Hirsutism Hypoglycemia Left hip pain Morbid obesity Obesity VIRGILIO (obstructive sleep apnea) Spondylosis of lumbosacral spine with radiculopathy Toe pain, right Transaminitis Vitamin D deficiency Family History Family History Father History of kidney cancer Paternal Uncle Throat cancer Paternal Grandfather Heart disease Other Mental health disorder Surgical History Surgical History History of hysterectomy History of repair of ACL History of Problems with Anesthesia: No Social History Social History Housing: House Alcohol intake: current Alcohol intake frequency: holidays/special occasions only Alcohol type: beer Patient Tobacco Use Status: Never used Tobacco e-Cigarette/Vaping Use: Never Used Second Hand Smoke Exposure: No Use of substances other than those prescribed or required for medical reasons: No Are you DNR?: No Advance Directives: No Advance Directives Information Provided: Yes service: No 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al status: employed 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al exposures/hazards: No Cognitive needs: No Hearing needs: No Vision needs: Yes Meds Allergies Allergy/AdvReac Type Severity Reaction Status Date / Time oxycodone [From Percocet] Allergy Mild pruritus Verified 08/07/22 09:30 Home Medications Medication Instructions Recorded Confirmed Last Taken Type izakvrgd-bck-valfg acid 0.4 tab PO 03/31/22 08/07/22 Unknown History mg-lycopene 300 mcg-lutein 250 mcg tablet (Centrum Silver) tumeric 100 mg-susanna 150 mg-olive cap PO 03/31/22 08/07/22 Unknown History 50 mg-oreg 150 mg-caprylate capsule ubidecarenone-omega 3-vit E 25 1 cap PO DAILY 03/31/22 08/07/22 Unknown History mg-150 (90-60) mg-200 unit capsule (Co M-87-Xtfwbva E-Fish Oil) vitamin B complex (B 1 tab PO DAILY 03/31/22 08/07/22 Unknown History Complex-Vitamin B12 tablet) Exam Airway Mallampati Class: II TM Dist: >3cm Neck ROM: Full Loose/Missing/Broken Teeth: No Heart: RRR Lungs: CTA Assessment and Plan Assessment Anesthesia Assessment: Anesthesia Plan Discussed Final Anesthetic Review History of Problems with Anesthesia: No NPO: Yes ASA Class: III Final Preanesthetic Review: Meds/Allgs Chart Reviewed, Consent Obtained/Reviewed and Anes Risks/Benef Reviewed Patient Risk: Intermediate Procedure Risk: Low Anesthetic Plan Anesthetic Plan: MAC: Disposition: Standard PACU
[2022-09-18 07:27] VITALS: BP 137/77; PULSE 89; RESP 18; TEMP 36.1; O2SAT 97; BMI 42.9
--- NOTE | 2022-09-18 07:54 | MHC.SHP ---
Pre-Procedural Eval Section A Date of Service: 09/18/22 Section B Chief Complaint: screening Relevant Family History (Specify if Yes): No Relevant Social History: None Present Medications: see Short Stay Collaborative assessment Medical History: Significant History (Allergic rhinitis Arthritis Back pain Cough Disc degeneration, lumbar Discomfort of left ear Dizziness Hirsutism Hypoglycemia Left hip pain Morbid obesity Obesity VIRGILIO (obstructive sleep apnea) Spondylosis of lumbosacral spine with radiculopathy Toe pain, right Transaminitis Vitamin D deficiency) History of Previous Operations: Relevant previous surgery/procedure and date(s) (History of hysterectomy History of repair of ACL) Allergies: Allergies Allergy/AdvReac Type Severity Reaction Status Date / Time oxycodone [From Percocet] Allergy Mild pruritus Verified 08/07/22 09:30 Review of Systems Sugical H&P ROS: Negative: Constitution, Cardiovascular, Respiratory, Neurological, Psychiatric, Hem-Onc, Allergic/Immunologic, Gastrointestinal, Genitourinary, Musculoskeletal, Integumentary, Endocrine and Eyes/Ears/Nose/Throat Exam Surgical H&P Exam: Normal: HEENT, Normal: Heart, Normal: Lungs, Normal: Extremities, Normal: Abdomen, Normal: Skin and Normal: Neurological Plan Diagnosis/Plan: Unchanged I have reviewed the history and physical and performed a pertinent physical examination on my patient. No changes have occurred unless specified.
[2022-09-18 07:57] VITALS: BMI 42.9
[2022-09-18] MEDS: Lactated Ringers 1,000 ML 100 ML IVCONT (08:05)
--- NOTE | 2022-09-18 08:37 | P.OP_ITS ---
Operative Note Operative Note Date of Service: 09/18/22 Narrative: Operative Information Procedure Description: Colonoscopy Indication: colon screening Anesthesia: MAC COLONOSCOPY Instrument: Olympus variable stiffness pediatric scope 190L Colonoscopy Monitoring: Vital signs and clinical assessment, continuous EKG monitoring, Pulse oximetry, Carbon Dioxide monitoring and blood pressure monitoring were done throughout the procedure. Colon withdrawal time was 14 minutes. Procedure: The patient was placed in the left lateral decubitis position and pre-procedure medications were administered. After a digital rectal examination of the ano-rectum, the video colonoscope was inserted into the rectum and advanced through the colon to the cecum/TI. The colonoscope was slowly withdrawn in a retrograde panoramic fashion and the colon mucosa was carefully examined including a retroflexed view of the rectum. Findings and interventions are described below. Procedure Difficulty: easy Findings: Terminal Ileum-normal Cecum:normal Ascending Colon: normal Transverse Colon -normal Descending Colon:normal Sigmoid Colon: 10 mm semi pedunculated polyp removed with cold snare with one clip applied for hemostasis Rectum: Retroflexion with small internal hemorrhoids, grade I Anorectum - normal Colon preparation: [place] Bowel Preparation Scale Right colon; 3 Transverse colon: 3 Left colon; 3 (0 = Unprepared colon segment with mucosa not seen due to solid stool that c annot be cleared. 1 = Portion of mucosa of the colon segment seen, but other areas of the colon segment not well seen due to staining, residual stool and/or opaque liquid. 2 = Minor amount of residual staining, small fragments of stool and/or opaque liquid, but mucosa of colon segment seen well. 3 = Entire mucosa of colon segment seen well with no residual staining, small fragments of stool or opaque liquid) Impression and Post Procedure Diagnosis: polyp internal hemorrhoids Plan: High fiber diet leaflet Avoid straining at stool, epsom salts and sitz bath, anusol supps or cream Repeat Colonoscopy in 5 years due to adenomatous appearing polyp or earlier if clinically indicated Above findings were reviewed with the patient and relevant handouts were provided if indicated.
[2022-09-18 09:20] VITALS: BP 120/81; PULSE 66; RESP 18; TEMP 36.1; O2SAT 99
[2022-09-18 09:35] VITALS: BP 109/68; PULSE 68; RESP 16; O2SAT 99
[2022-09-18 09:50] VITALS: BP 115/72; PULSE 74; RESP 16; TEMP 36.2; O2SAT 99
== END 2022-09-18 10:15 | disposition home or self-care (01) ==
PROVIDERS: PCP Internal Medicine; Visit Provider Internal Medicine Gastroenterology
PROC: 0DJD8ZZ Inspection of Lower Intestinal Tract, Via Natural or Artificial Opening Endoscopic (ICD-10-PCS; CPT 45378; principal; 2022-09-18 08:30)
DX: Z12.11 Encounter for screening for malignant neoplasm of colon (principal); D12.5 Benign neoplasm of sigmoid colon; K64.0 First degree hemorrhoids; J30.9 Allergic rhinitis, unspecified; G47.33 Obstructive sleep apnea (adult) (pediatric); L68.0 Hirsutism; E16.2 Hypoglycemia, unspecified; E55.9 Vitamin D deficiency, unspecified; E66.01 Morbid (severe) obesity due to excess calories; Z68.41 Body mass index [BMI] 40.0-44.9, adult; Z88.8 Allergy status to other drugs, medicaments and biological substances
CPT/HCPCS: 45385; 88305

== ENCOUNTER 2022-09-30 09:54 | Outpatient (REF) | payer OTHER, MEDICAID, SELFPAY ==
[2022-09-30 10:37] LABS: MANUAL DIFF FLAG NO
[2022-09-30 10:44] LABS: Basophils Percent Auto 0.5 % (0-2); Eosinophils Absolute Auto 0.1 X10*3/uL (0.0-0.4); Eosinophils Percent Auto 2.4 % (0-4); Hemoglobin 14.1 g/dl (12.0-16.0); Imm Gran Abs Auto 0.01 X10*3/uL (0.00-0.03); Imm Gran Pct Auto 0.3 % (0.0-0.4); Lymphocytes Absolute Auto 1.8 X10*3/uL (1.2-4.9); Lymphocytes Percent Auto 47.8 % (20-40); Mean Corpuscular HGB Conc 32.8 g/dl (31.0-35.0); Mean Corpuscular Hemoglobin 27.8 pg (27.0-33.0); Mean Corpuscular Volume 84.8 fL (80.0-98.0); Mean Platelet Volume 11.3 fL (9.4-12.3); Monocytes Absolute Auto 0.3 X10*3/uL (0.1-1.2); Neutrophils Absolute Auto 1.5 x10*3/uL (2.0-8.3); Platelet Count 197 X10*3/uL (160-400); Red Blood Count 5.07 X10*6/uL (4.20-5.50); Red Cell Distribution Width 13.6 % (11.0-16.0); White Blood Count 3.7 X10*3/uL (4.8-10.8)
[2022-09-30 11:19] LABS: Erythrocyte Sedimentation Rate 12 MM/HR (0-20)
[2022-09-30 11:49] LABS: Alanine Aminotransferase 64 U/L (0-31); Albumin Level 4.4 g/dL (3.5-5.0); Alkaline Phosphatase 71 U/L (39-117); Anion Gap 12 (12-20); Aspartate Amino Transferase 30 U/L (5-31); Bilirubin Total 0.6 mg/dL (0.0-1.0); Blood Urea Nitrogen 13 mg/dL (9-16); Calcium 9.5 mg/dL (8.4-10.2); Carbon Dioxide 27 mmol/L (22-29); Chloride 108 mmol/L (96-108); Cholesterol 144 mg/dL; Estimated Glomerular Filt Rate > 60; Glucose Random 98 mg/dL (60-115); HDL Cholesterol 46 mg/dL; LDL Cholesterol Calculated 83 mg/dl; Potassium 4.6 mmol/L (3.3-5.1); Rheumatoid Factor < 13.0 IU/mL (<15.0); Sodium 142 mmol/L (135-145); Triglycerides 75 mg/dL; Vitamin D 25-OH Total 33.6 ng/mL (>30)
[2022-10-01 05:01] LABS: Lyme Abs Screen <0.90 index
[2022-10-01 12:26] LABS: Anti Nuclear Antibody Screen NEGATIVE (NEGATIVE)
[2022-10-01 15:12] LABS: Cyclic Citrullinated Peptide <16 UNITS
[2022-10-01 16:36] LABS: CRP High Sensitivity 4.9 mg/L
== END 2022-09-30 09:55 | disposition home or self-care (01) ==
LOC: HO.10HDL 09:54
PROVIDERS: Visit Provider Internal Medicine
DX: M25.50 Pain in unspecified joint (principal); E55.9 Vitamin D deficiency, unspecified; E66.01 Morbid (severe) obesity due to excess calories; D64.9 Anemia, unspecified
CPT/HCPCS: 36415; 80053; 80061; 82306; 85025; 85652; 86038; 86039; 86141; 86200; 86431; 86617; 86618

== ENCOUNTER → 2022-12-08 15:57 | Outpatient (BNVA) | payer OTHER, MEDICAID, SELFPAY | PROVIDERS: PCP Internal Medicine; Visit Provider Internal Medicine | DX: Z13.89 Encounter for screening for other disorder (principal) ==

== ENCOUNTER 2022-12-29 08:11 | Outpatient (REF) | payer OTHER, MEDICAID, SELFPAY ==
--- NOTE | ~2022-12-29 | XR_ITS ---
EXAMINATION: XR FOOT, LEFT CLINICAL INFORMATION: Pain COMPARISON: None TECHNIQUE: AP, lateral, and oblique views of the left foot. FINDINGS: No fracture or dislocation. Mild hallux valgus deformity and degenerative change at the first MTP joint. Joint spaces are otherwise normal. Small calcaneal spurs. XR/XR foot LT min 3V IMPRESSION: Mild hallux valgus deformity and degenerative change at the first MTP joint. Small calcaneal spurs.
--- NOTE | ~2022-12-29 | XR_ITS ---
EXAMINATION: XR SHOULDER, RIGHT CLINICAL INFORMATION: Bursitis COMPARISON: Previous exam August 2018 TECHNIQUE: 3 views of the right shoulder. FINDINGS: Bone alignment is normal. No fracture or dislocation. Normal glenohumeral joint. Arthritis at the acromioclavicular joint. Normal soft tissues. XR/XR shoulder RT min 2V IMPRESSION: Arthritis at the acromioclavicular joint.
[2022-12-29 12:53] LABS: Rheumatoid Factor < 13.0 IU/mL (<15.0)
== END 2022-12-29 08:12 | disposition home or self-care (01) ==
LOC: HO.HMGCX 08:11
PROVIDERS: PCP Internal Medicine; Visit Provider Physician Assistant Medical
DX: M75.91 Shoulder lesion, unspecified, right shoulder (principal); M75.51 Bursitis of right shoulder; M79.672 Pain in left foot
CPT/HCPCS: 36415; 73030; 73630; 86431

== ENCOUNTER → 2023-01-02 12:57 | Outpatient (BNVA) | payer OTHER, MEDICAID, SELFPAY | PROVIDERS: PCP Internal Medicine; Visit Provider Physician Assistant | DX: M75.51 Bursitis of right shoulder (principal); M75.91 Shoulder lesion, unspecified, right shoulder | CPT/HCPCS: 20610; J1040 ==

== ENCOUNTER 2023-01-20 11:59 | Outpatient (REF) | payer OTHER, MEDICAID, SELFPAY ==
--- NOTE | ~2023-01-20 | XR_ITS ---
EXAMINATION: LEFT WRIST AND RIGHT KNEE CLINICAL INFORMATION: Pain left wrist COMPARISON: None TECHNIQUE: 4 views left wrist and 3 views right knee FINDINGS: Left wrist: There is no visible acute fracture, dislocation or subluxation seen. No soft tissue swelling. Right knee: There is evidence of previous ACL repair. The tricompartment joint space is preserved. There is mild superior patellar enthesophyte. No visible acute fracture, dislocation or subluxation seen. XR/XR wrist LT 2V IMPRESSION: 1. Unremarkable left wrist exam. 2. Unremarkable right knee exam except for mild superior patellar enthesophyte. There is evidence of previous ACL repair. No acute fracture or dislocation seen.
--- NOTE | ~2023-01-20 | XR_ITS ---
EXAMINATION: LEFT WRIST AND RIGHT KNEE CLINICAL INFORMATION: Pain left wrist COMPARISON: None TECHNIQUE: 4 views left wrist and 3 views right knee FINDINGS: Left wrist: There is no visible acute fracture, dislocation or subluxation seen. No soft tissue swelling. Right knee: There is evidence of previous ACL repair. The tricompartment joint space is preserved. There is mild superior patellar enthesophyte. No visible acute fracture, dislocation or subluxation seen. XR/XR knee RT 2V IMPRESSION: 1. Unremarkable left wrist exam. 2. Unremarkable right knee exam except for mild superior patellar enthesophyte. There is evidence of previous ACL repair. No acute fracture or dislocation seen.
== END 2023-01-20 12:00 | disposition home or self-care (01) ==
LOC: HO.XRAY 11:59
PROVIDERS: PCP Internal Medicine; Visit Provider Internal Medicine
DX: M25.561 Pain in right knee (principal); M25.532 Pain in left wrist
CPT/HCPCS: 73100; 73560

== ENCOUNTER 2023-02-05 13:14 | Outpatient (REF) | payer OTHER, MEDICAID, SELFPAY ==
--- NOTE | ~2023-02-05 | FL_ITS ---
EXAMINATION: FL ARTHROGRAM SHOULDER, RIGHT CLINICAL INFORMATION: Right shoulder pain. COMPARISON: None available. TECHNIQUE: Following explaining fluoroscopy-guided right shoulder steroid injection procedure, benefits and risks, a written consent was obtained. Patient was placed supine and a marker was placed along the anterior skin overlying the right glenohumeral joint. The area was then cleaned and draped in usual sterile manner. 1% lidocaine was administered at puncture site. Through a small skin incision a 22-gauge spinal needle was advanced through the skin and placed into the joint space. 1-2 mL of nonionic contrast was injected. Subsequently 80 mg of Depo-Medrol, and 5 mL of 1% lidocaine as a 6 mL combination was injected and needle withdrawn. Complete hemostasis achieved at the puncture site. Patient tolerated procedure extremely well. Simple Band-Aid applied postprocedure. FINDINGS: There are no fractures or dislocations. No joint effusion is identified. No bone, joint or soft tissue abnormality is demonstrated. Fluoroscopy-guided right shoulder joint steroid injection performed. FLUOROSCOPY TIME: 1.6 minutes DOSE AREA PRODUCT: 11.799 uGy-m2 (microgray-meter squared) FLUOROSCOPIC IMAGES: 4. FL/FL arthrogram shoulder RT IMPRESSION: Successful fluoroscopic-guided right shoulder steroid injection performed.
== END 2023-02-05 13:15 | disposition home or self-care (01) ==
LOC: HO.XRAY 13:14
PROVIDERS: PCP Internal Medicine; Visit Provider Physician Assistant
DX: M19.011 Primary osteoarthritis, right shoulder (principal)
CPT/HCPCS: 23350; 73040

== ENCOUNTER 2023-02-12 12:12 | Outpatient (REF) | payer OTHER, MEDICAID, SELFPAY ==
--- NOTE | ~2023-02-12 | US_ITS ---
EXAMINATION: US VENOUS ULTRASOUND WITH DOPPLER LOWER EXTREMITY, RIGHT CLINICAL INFORMATION: Pain right leg COMPARISON: None available. TECHNIQUE: Ultrasound of the deep veins is performed from the hip to the calf with compression sonography and color and pulse Doppler assessment. Spectral analysis with color-flow imaging is performed. Technical limitation secondary to patient body habitus. FINDINGS: There is normal venous compression and respiratory variation and augmented flow. The visualized common femoral vein, superficial femoral vein, profunda femoral vein, popliteal vein, and the trifurcation region shows no evidence of deep venous thrombosis. There is no significant popliteal fossa cyst. If the patient's symptoms persist, followup ultrasound in 5 days 7 days might be of value to exclude proximal propagation from a non-visualized calf vein. US/US venous duplex LE RT IMPRESSION: No DVT demonstrated in the right lower extremity.
== END 2023-02-12 12:13 | disposition home or self-care (01) ==
LOC: HO.US 12:12
PROVIDERS: PCP Internal Medicine; Visit Provider Internal Medicine
DX: M79.604 Pain in right leg (principal)
CPT/HCPCS: 93971

== ENCOUNTER 2023-02-19 07:52 | Outpatient (REF) | payer OTHER, MEDICAID, SELFPAY ==
--- NOTE | ~2023-02-19 | MM_ITS ---
EXAMINATION: MM SCREENING DIGITAL BREAST TOMOSYNTHESIS, BILATERAL CLINICAL INFORMATION: Screening. Asymptomatic. The lifetime risk of breast cancer based on the Tyrer-Cuzick Model is 6.6%. COMPARISON: Mammography: February 17, 2022 and studies dating back to September 09, 2018 TECHNIQUE: Digital breast tomosynthesis is performed in both the craniocaudal and mediolateral oblique views along with computer-aided detection (CAD). Synthesized 2D images are generated from the tomosynthesis. FINDINGS: There are scattered areas of fibroglandular density (ACR BI-RADS breast composition Category b). There are no significant masses, abnormal calcifications, or other abnormalities. MM/MM tomosynthesis screening BI IMPRESSION: No significant changes from prior exam. ASSESSMENT: BI-RADS 1: Negative RECOMMENDATION: Routine annual mammography screening. This patient's information was entered into a reminder system with a target due date for their next mammogram.
== END 2023-02-19 07:53 | disposition home or self-care (01) ==
LOC: HO.MAMMO 07:52
PROVIDERS: PCP Internal Medicine; Visit Provider Internal Medicine
DX: Z12.31 Encounter for screening mammogram for malignant neoplasm of breast (principal)
CPT/HCPCS: 77063; 77067

== ENCOUNTER → 2023-03-19 14:46 | Outpatient (BNVA) | payer OTHER, MEDICAID, SELFPAY | PROVIDERS: PCP Internal Medicine; Visit Provider Orthopaedic Surgery | DX: M75.111 Incomplete rotator cuff tear or rupture of right shoulder, not specified as traumatic (principal); M19.011 Primary osteoarthritis, right shoulder | CPT/HCPCS: J1100 ==

== ENCOUNTER 2023-03-21 11:11 | Outpatient (REF) | payer OTHER, MEDICAID, SELFPAY ==
[2023-03-21 13:31] LABS: Appearance Urine Turbid; Color Urine Yellow; Glucose Urine UA Negative (Negative); Leukocyte Esterase Urine Trace (Negative); Nitrite Urine Negative (Negative); PH 5.5 (5.0-9.0); Specific Gravity - Urine >= 1.030 (1.005-1.025); UMIC TRIGGER UACC YES; Urine Blood Negative (Negative); Urine Ketones Negative (Negative); Urine Protein Negative (Neg-Trace)
[2023-03-21 13:33] LABS: Bacteria Urine 1+ (None Seen); Hyaline Casts Urine 0-2 /LPF (0-2); WBC Urine 0-5 /HPF (0-5)
[2023-03-24 01:23] LABS: Rubeola IgG (Measles) >300.00 AU/mL
== END 2023-03-21 11:12 | disposition home or self-care (01) ==
LOC: HO.HMGCLDS 11:11
PROVIDERS: PCP Internal Medicine; Visit Provider Internal Medicine
DX: Z01.84 Encounter for antibody response examination (principal)
CPT/HCPCS: 36415; 81001; 86735; 86762; 86765; 86787

== ENCOUNTER 2023-03-28 10:08 | Outpatient (REF) | payer OTHER, MEDICAID, SELFPAY ==
[2023-03-28 11:43] LABS: Estimated Average Glucose 120 mg/dL; Hemoglobin A1c % 5.8 %
[2023-03-28 11:59] LABS: Anion Gap 12 (12-20); Blood Urea Nitrogen 11 mg/dL (9-16); Calcium 9.8 mg/dL (8.4-10.2); Carbon Dioxide 28 mmol/L (22-29); Chloride 108 mmol/L (96-108); Estimated Glomerular Filt Rate > 60; Glucose Fasting 96 mg/dL (60-99); Potassium 4.6 mmol/L (3.3-5.1); Sodium 143 mmol/L (135-145)
== END 2023-03-28 10:09 | disposition home or self-care (01) ==
LOC: HO.HMGCLDS 10:08
PROVIDERS: PCP Internal Medicine; Visit Provider Physician Assistant
DX: E16.2 Hypoglycemia, unspecified (principal); R42 Dizziness and giddiness
CPT/HCPCS: 36415; 80048; 83036

== ENCOUNTER 2023-05-14 16:00 | Outpatient (RCR) | payer OTHER, MEDICAID, SELFPAY ==
--- NOTE | 2023-03-31 18:14 | MHC.PT.EP ---
[facility] [place] Office [place] [facility] [place] [facility] [address] Pablo Kulkarni [address] [phone] F: [phone] F: [phone] F: [phone] F: [phone] Physical Therapy Plan of Care Date of Evaluation: Date of Surgery: N/A Diagnosis: partial Assessment: pt is a 48 y/o female presenting to physical therapy w/ referring diagnosis of rotator cuff tear or rupture of right shoulder. Impairments include pain, decreased range of motion, decreased strength, impaired functional mobility, impaired postural awareness, and altered ambulation mechanics. pt is a good candidate for skilled PT due to age, potential remediation of impairments, typical disease/condition progression and prognosis, comorbidities, and motivation. pt would benefit from skilled PT intervention to provide a tailored strengthening and stretching exercise program, functional training, gait training, postural re-training, neuromuscular re-education, modalities as needed for pain, equipment safety demonstration. Frequency and Duration: The patient will be seen 2x/wk for 4 wks Short Term Goals: pt will be I w/ HEP to promote self-management of condition. pt will improve R shoulder flexion by 10 degrees to promote ease in reaching for objects on higher shelves. Co Founder Goals: pt will report a statistically significant improvement in self-reported outcome measure, SPADI, to promote return to PLOF. pt will improve B shoulder flexion and elbow flexion strength to 5/5 to promote ease in lifting. Treatment Plan: Modalities to reduce pain, spasms and effusion. Manual therapy to restore motion and function. Therapeutic exercise to improve strength and flexibility. Neuromuscular re-education for posture and balance. Therapeutic activities to return to functional activities of daily living. Electronically signed by: Ann Peralta PT, DPT Please sign and return to therapist. Thank you for your referral.
--- NOTE | 2023-06-03 13:41 | MHC.PT.DC ---
[facility] [place] Office [place] Office [place] Office [address]i [address] [phone] F: [phone] F: [phone] F: [phone] F: [phone] Physical Therapy Discharge Report Diagnosis: partial Date of Surgery: N/A Date of Evaluation: 03/31/23 Date of Discharge: 06/03/23 Treatments to Date: 8 Cancellations to Date: 7 No Shows to Date: 0 Discharge Status: Visit Non-compliance Discharge Summary: The patient cancelled her last two scheduled appointments and has not called to reschedule in over a week. She is discharged from this physical therapy plan of care. Her current status is unknown. Electronically signed by: Ann Khalil PT, DPT Please sign and return to therapist. Thank you for your referral.
== END 2023-06-03 13:42 | disposition home or self-care (01) ==
LOC: HO.PT 16:00
PROVIDERS: PCP Internal Medicine; Visit Provider Orthopaedic Surgery
DX: M75.111 Incomplete rotator cuff tear or rupture of right shoulder, not specified as traumatic (principal); M19.011 Primary osteoarthritis, right shoulder
CPT/HCPCS: 97110; 97140; 97162; 97530

== ENCOUNTER 2023-06-11 11:39 | Outpatient (AMB) | payer OTHER, MEDICAID, SELFPAY ==
--- NOTE | 2023-06-11 11:41 | A.OFFVIS_ITS ---
Intake Vital Signs 06/11/23 11:42 Height 5 ft 4 in Weight 266 lb 12.149 oz BMI 45.8 BP 124/78 Blood Pressure Location Lt brachial Position Sitting Pulse 64 Pulse Source Pulse Oximeter Pulse Oximetry (%) 98 Oxygen Delivery Method Room Air Intake Visit Reasons: Obstructive sleep apnea Limo Driver Required: No Allergies meat Allergy (Severe, Uncoded 06/11/23 11:57) Foot Ulcer percocet Allergy (Severe, Uncoded 06/11/23 11:57) Hives Medication List - Last Reconciled 06/11/23 by Noé Blankenship MD cetirizine 10 mg PO DAILY cholecalciferol (vitamin D3) 50 mcg PO DAILY garlic 200 mg PO DAILY qahgisyn-yid-EB-lycopen-lutein 0.4 mg-300 mcg- 250 mcg (Centrum Silver) tabs PO naproxen 500 mg PO BID PRN 14 days oxycodone 5 mg PO BID PRN 5 days zqlsdcf-eiib-kozcc-oreg-capryl 100 mg-150 mg- 50 mg-150 mg caps PO ubidecarenone-omega 3-vit E 25-150-200 mg-mg-unit (Co H-64-Hbfxxwv E-Fish Oil) 1 cap PO DAILY vitamin B complex (B Complex-Vitamin B12 tablet) 1 tab PO DAILY vitamin E (dl, acetate) 180 mg PO DAILY Do you need a note to return to daycare/school/sports/work: No HPI Obstructive sleep apnea HPI Details This 48 years old very pleasant 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 She is a known case of obstructive sleep apnea due to her morbid obesity. Being treated with CPAP which she uses very regularly, She is using for at least 6 hours every night. and sleeps well According to her she does have some snoring even when she is sleeping with the CPAP. She uses nasal pillows. . Denies any daytime sleepiness Weight management is an issue, she remains grossly obese, she is not in any weight management program, trying to do on her own. Say is that she just got a new bike at home and will start exercising. [facility] Medical History Allergic rhinitis Arthritis Back pain Cough Disc degeneration, lumbar Discomfort of left ear Dizziness Hirsutism Hypoglycemia Left hip pain Morbid obesity Obesity VIRGILIO (obstructive sleep apnea) Spondylosis of lumbosacral spine with radiculopathy Toe pain, right Transaminitis Vitamin D deficiency Surgical History History of hysterectomy History of repair of ACL Family History Father History of kidney cancer Paternal Uncle Throat cancer Paternal Grandfather Heart disease Sister Psoriatic arthritis Other Family history of osteoarthritis Mental health disorder Social History Housing: House Alcohol intake: current Alcohol intake frequency: holidays/special occasions only Alcohol type: beer Patient Tobacco Use Status: Never used Tobacco e-Cigarette/Vaping Use: Never Used Second Hand Smoke Exposure: No service: No 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al status: employed 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al exposures/hazards: No Cognitive needs: No Hearing needs: No Vision needs: Yes Review of Systems Const All systems reviewed & are unremarkable except as noted in HPI and below Denies snoring Eyes Reports no additional complaints ENT Reports no additional complaints Card Denies chest pain, Denies irregular heart rhythm and Denies leg edema Resp Reports no additional complaints, Denies cough, Denies snoring and Denies wheezing GI Reports no additional complaints Reports no additional complaints Musc Reports back pain Skin/Breast Reports system reviewed and no additional complaints, except as documented Neuro Reports no additional complaints Psych Reports no additional complaints Aller/Immun Denies wheezing Physical Exam Vital Signs: Last Vital Signs Pulse 64 06/11/23 11:42 BP 124/78 06/11/23 11:42 Pulse Ox 98 06/11/23 11:42 Oxygen Delivery Method Room Air 06/11/23 11:42 BMI result Body Mass Index 45.8 Const General: healthy appearing (EXCEPT FOR BEING OVERWEIGHT), comfortable, no acute distress, alert and awake Orientation/consciousness: patient oriented x3 HEENT Head: Yes normal to inspection General nose exam: No nasal polyps present and No nasal discharge present Face and sinus: Yes sinuses nontender Mouth: oropharynx normal Throat: Yes posterior oropharynx normal Eyes General: appearance normal, both eyes and all related structures Neck Neck: Yes normal visual inspection, Yes no lymphadenopathy, Yes trachea midline and Yes no JVD Thyroid: Thyroid normal Chest Chest palpation & inspection: normal inspection of the chest, normal palpation of entire chest wall and no tenderness Resp Effort & Inspection: normal respiratory effort and no cough Auscultation: clear to auscultation bilaterally and no wheezes Percussion: percussion normal Cardio Palpation: normal PMI Rate: regular rate Rhythm: regular rhythm Heart sounds: no gallops and no murmurs Peripheral pulses: Peripheral pulses 2+ throughout GI Palpation (GI): Soft to palpation, nontender, No hepatosplenomegaly present, no masses and Other GI palpation findings present Auscultation: normal bowel sounds Back/Spine/Pelvis Thoracic/Lumbar Spine: thoracic and lumbar spine normal to inspection and thoraco-lumbar ROM limited Skin General skin exam: no rashes or lesions noted Neuro General: patient oriented x3 and no focal motor deficits Cranial nerves: Yes CN's II-XII intact bilaterally Extrem General: Yes normal to inspection, Yes no clubbing, cyanosis or edema and Yes no calf tenderness Psych Appearance: grossly normal and well kempt Speech and movement: Normal speech and movement present Results Reviewed Results Reviewed: Compliant report not available today but she states that she uses this for 6 hours every night and very regularly. Assessment & Plan Assessment & Plan (1) Morbid obesity: Comment: PATIENT IS WELL AWARE OF THE FACT THAT SHE HAS MORBID OBESITY. AND SHE DOES HAVE INTENTION TO LOSE WEIGHT . ENCOURAGED HER TO JOIN. WEIGHT MANAGEMENT PROGRAM IN THE MEANTIME TRY TO RESTRICT CALORIES INTAKE.AND JOIN AN EXERCISE PROGRAM Code(s): E66.01 - Morbid (severe) obesity due to excess calories (2) VIRGILIO (obstructive sleep apnea): Comment: SEVERE OBSTRUCTIVE SLEEP APNEA WITH TOTAL SLEEP TIME AHI 30. ON CPAP THERAPY, NASAL PILLOWS ,A PAP MODE PRESSURE SETTING 6-20 CM. VERY HAPPY AND 100% COMPLIANT. NO ISSUES WITH THE MASK OR CPAP MACHINE. ADVISED CONTINUE USING REGULARLY. Code(s): G47.33 - Obstructive sleep apnea (adult) (pediatric) (3) Allergic rhinitis: Comment: PATIENT HAS HISTORY OF SEASONAL ALLERGIES. ADVISE THAT SHE CAN USE THE OTC ANTIHISTAMINIC AGENTS SUCH LORATADINE 10 MG PER DAY NEEDED. Code(s): J30.9 - Allergic rhinitis, unspecified (4) Cough: Comment: COUGH IS MILD, INTERMITTENT, MOSTLY RELATED TO POSTNASAL DRIP. ADVISED TO USE CITRUS IN 10 MG P.R.N. Code(s): R05.9 - Cough, unspecified Coding Level of Care Code Est Pt Level 3 (81676) Diagnoses Morbid obesity E66.01 VIRGILIO (obstructive sleep apnea) G47.33 Allergic rhinitis J30.9 Cough R05.9
[2023-06-11 11:42] VITALS: BP 124/78; PULSE 64; O2SAT 98; BMI 45.8
== END 2023-06-11 11:56 | disposition home or self-care (01) ==
PROVIDERS: PCP Internal Medicine; Visit Provider Internal Medicine
DX: E66.01 Morbid (severe) obesity due to excess calories (principal); G47.33 Obstructive sleep apnea (adult) (pediatric); J30.9 Allergic rhinitis, unspecified; R05.9 Cough, unspecified
CPT/HCPCS: 99213

== ENCOUNTER → 2023-06-11 11:39 | Outpatient (BNVA) | payer OTHER, MEDICAID, SELFPAY | PROVIDERS: PCP Internal Medicine; Visit Provider Internal Medicine ==

== ENCOUNTER 2023-07-02 15:07 | Outpatient (AMB) | payer OTHER, MEDICAID, SELFPAY ==
--- NOTE | 2023-07-02 15:09 | A.OFFVIS_ITS ---
Intake Intake Visit Reasons: OV - Right Shoulder Pain last inject 01/02/23 Intake Note: Loly is a 48 year old female who presents today for a follow up of her right shoulder. Last Injection done 01/02/23. Patient reports that this injection was not helpful, she has been working with PT and complains of continued pain. Allergies meat Allergy (Severe, Uncoded 06/11/23 11:57) Foot Ulcer percocet Allergy (Severe, Uncoded 06/11/23 11:57) Hives HPI OV - Right Shoulder Pain last inject 01/02/23 HPI Details Loly Gutierrez is a 48-year-old female who presents today to the office for a follow-up of right shoulder pain. The patient's last injection was on 01/02/23. The patient had an MRI scan at [facility]. She has had physical therapy and diagnostic injections in the past. She is currently on pain medication for arthritis. She recently went on vacation and was engaged in jumping and running. After returning from vacation, she was unable to move due to pain.? [facility] Medical History Allergic rhinitis Arthritis Back pain Cough Disc degeneration, lumbar Discomfort of left ear Dizziness Hirsutism Hypoglycemia Left hip pain Morbid obesity Obesity VIRGILIO (obstructive sleep apnea) Spondylosis of lumbosacral spine with radiculopathy Toe pain, right Transaminitis Vitamin D deficiency Surgical History History of hysterectomy History of repair of ACL Family History Father History of kidney cancer Paternal Uncle Throat cancer Paternal Grandfather Heart disease Sister Psoriatic arthritis Other Family history of osteoarthritis Mental health disorder Social History Housing: House Alcohol intake: current Alcohol intake frequency: holidays/special occasions only Alcohol type: beer Patient Tobacco Use Status: Never used Tobacco e-Cigarette/Vaping Use: Never Used Second Hand Smoke Exposure: No service: No 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al status: employed 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al exposures/hazards: No Cognitive needs: No Hearing needs: No Vision needs: Yes Physical Exam Const General: no acute distress, alert and awake Orientation/consciousness: patient oriented x3 HEENT Head: Yes normocephalic and Yes atraumatic Eyes EOM: EOMs intact bilaterally Resp Effort & Inspection: normal respiratory effort and able to speak in complete sentences Cardio Jugular venous distension: no JVD Skin General skin exam: turgor normal Rashes: no rashes Neuro General: patient oriented x3 Extrem Other: 4/5 empty can 45/90/120/S1 +H/N Neg lift off Psych Appearance: grossly normal Affect: normal affect Attitude: cooperative Results Reviewed Results Reviewed: I personally reviewed the MR images. Full thickness tear of supraspinatus ACJ arthritis Assessment & Plan Assessment & Plan (1) Full thickness rotator cuff tear: Code(s): M75.120 - Complete rotator cuff tear or rupture of unspecified shoulder, not specified as traumatic Plan: This is a 48 yo F with a full thickness RTC tear. She has polyarthralgia and pain anc cannot abduct her left arm comfortably. She has failed conservative measures and I recommend Right RTC repair. I discussed the risks benefits and alternatives including but not limited to the risk of pain, infection, stiffness, need for further surgery as well as potential medical complications such as blood clots, pulmonary embolism and cardiac complications. She will contact us when she sorts out her schedule. She may continue to work as tolerated. Plan Scribed for Dr. Rusty Alcantar by Gurmeet Wolf, medical transcriptionist, on 07/02/2023. I, Dr. Rusty Alcantar, have personally reviewed and agree with the information entered by the scribe. Coding Level of Care Code Est Pt Level 4 (74446) Diagnoses Full thickness rotator cuff tear M75.120
== END 2023-07-02 15:25 | disposition home or self-care (01) ==
LOC: HO.HOS 15:07
PROVIDERS: PCP Internal Medicine; Visit Provider Orthopaedic Surgery
DX: M75.121 Complete rotator cuff tear or rupture of right shoulder, not specified as traumatic (principal)
CPT/HCPCS: 99214

== ENCOUNTER → 2023-07-02 15:07 | Outpatient (BNVA) | payer OTHER, MEDICAID, SELFPAY | PROVIDERS: PCP Internal Medicine; Visit Provider Orthopaedic Surgery ==

== ENCOUNTER 2023-08-20 07:48 | Outpatient (REF) | payer OTHER, MEDICAID, SELFPAY ==
[2023-08-20 08:51] LABS: Alanine Aminotransferase 87 U/L (0-31); Albumin Level 4.4 g/dL (3.5-5.0); Alkaline Phosphatase 78 U/L (39-117); Anion Gap 15 (12-20); Aspartate Amino Transferase 44 U/L (5-31); Bilirubin Total 0.5 mg/dL (0.0-1.0); Blood Urea Nitrogen 11 mg/dL (9-16); Carbon Dioxide 24 mmol/L (22-29); Chloride 108 mmol/L (96-108); Cholesterol 161 mg/dL (<200); Estimated Glomerular Filt Rate > 60; Glucose Fasting 111 mg/dL (60-99); HDL Cholesterol 43 mg/dL (>40); LDL Cholesterol Calculated 93 mg/dL (<100); Potassium 4.7 mmol/L (3.3-5.1); Sodium 142 mmol/L (135-145); Total Protein 7.5 g/dL (6.5-8.0); Triglycerides 125 mg/dL (<150)
[2023-08-20 09:05] LABS: Vitamin D 25-OH Total 32.3 ng/mL (>30)
== END 2023-08-20 07:49 | disposition home or self-care (01) ==
LOC: HO.LAB 07:48
PROVIDERS: PCP Internal Medicine; Visit Provider Internal Medicine
DX: Z11.52 Encounter for screening for COVID-19 (principal); Z20.822 Contact with and (suspected) exposure to COVID-19; E66.01 Morbid (severe) obesity due to excess calories; E11.40 Type 2 diabetes mellitus with diabetic neuropathy, unspecified; E53.8 Deficiency of other specified B group vitamins; E55.9 Vitamin D deficiency, unspecified
CPT/HCPCS: 0241U; 36415; 80053; 80061; 81003; 82306; 82607; 82746; 82951; 82952; 83036; 86735; 86762; 86765; 86787

== ENCOUNTER 2023-11-11 09:24 | Outpatient (AMB) | payer OTHER, MEDICAID, SELFPAY ==
--- NOTE | 2023-11-11 09:26 | MHC.PC.OV ---
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 Accompanied by: Self / Same As Patient Allergies meat Allergy (Severe, Uncoded 11/11/23 09:38) Foot Ulcer percocet Allergy (Severe, Uncoded 11/11/23 09:38) Hives Medication List - Last Reconciled 11/11/23 by Aileen Isabel MD cetirizine 10 mg PO DAILY cholecalciferol (vitamin D3) 50 mcg PO DAILY garlic 200 mg PO DAILY owkebpeb-lba-VX-lycopen-lutein 0.4 mg-300 mcg- 250 mcg (Centrum Silver) tabs PO naproxen 500 mg PO BID PRN 14 days oxybutynin chloride 10%(100mg/gram) (Gelnique) 1 g topical DAILY 30 days oxycodone 10 mg (2 x 5 mg) PO BID PRN 5 days qghblnc-stxf-udonp-oreg-capryl 100 mg-150 mg- 50 mg-150 mg caps PO ubidecarenone-omega 3-vit E 25-150-200 mg-mg-unit (Co P-84-Cpabloe E-Fish Oil) 1 cap PO DAILY vitamin B complex (B Complex-Vitamin B12 tablet) 1 tab PO DAILY vitamin E (dl, acetate) 180 mg PO DAILY Tobacco use date assessed: 02/12/23 Dental Screening Dental Screen Date: 11/11/23 Did you have a dental visit in the last 12 months?: Yes Did you have a dental problem in the last 6 months where you did not have access to dental care?: No Was dental information given to patient?: Patient has dentist HPI HPI Comments History of Present Illness Details This is a 48-year-old female with morbid obesity that comes for her physical exam. Her BMI is 47 and should do diet and exercise. Declines weight loss surgery in the past. Last mammogram was 2022 and was normal. Last colonoscopy was 2021. Last Pap smear was 2019 and she has hysterectomy for benign reasons therefore no need for Pap smears. No chest pain or shortness of breath. Complains of elbow pain bilateral. Also has lumbar pain and went to pain management which give her 6 local injections twice and did not relieved the pain. Would be referred to [facility] for this matter. No fever, bowel or bladder incontinence. [facility] Medical History Cough Allergic rhinitis Left hip pain Transaminitis Vitamin D deficiency Hirsutism Discomfort of left ear Morbid obesity VIRGILIO (obstructive sleep apnea) Hypoglycemia Toe pain, right Disc degeneration, lumbar Spondylosis of lumbosacral spine with radiculopathy Dizziness Obesity Arthritis Back pain Surgical History History of repair of ACL History of hysterectomy Family History (Updated 11/11/23 @ 09:42 by Aileen Isabel MD) Father History of kidney cancer Paternal Uncle Throat cancer Paternal Grandfather Heart disease Sister Psoriatic arthritis Mother Diabetes mellitus Other Family history of osteoarthritis Mental health disorder Social History Housing: House Alcohol intake: current Alcohol intake frequency: holidays/special occasions only Alcohol type: beer Patient Tobacco Use Status: Never used Tobacco e-Cigarette/Vaping Use: Never Used Second Hand Smoke Exposure: No service: No 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al status: employed 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 Viktor Ching, Lola Martin, Rosas Yu and colleagues, with an educational harris from [employer]. Review of Systems Const All systems reviewed & are unremarkable except as noted in HPI and below Eyes Reports no additional complaints, Denies change in vision and Denies other visual disturbances Card Denies chest pain at rest, Denies chest pain with activity, Denies edema, Denies irregular heart rhythm, Denies claudication, Denies dyspnea, Denies dyspnea on exertion, Denies orthopnea, Denies paroxysmal nocturnal dyspnea and Denies slow heart rate Resp Denies cough, Denies dyspnea and Denies dyspnea on exertion GI Denies abdominal pain, Denies change in bowel habits, Denies excessive flatus, Denies nausea and Denies vomiting Denies urinary incontinence, Denies urinary hesitancy and Denies urinary urgency Musc Denies abnormal gait, Reports back pain, Denies atrophy, Denies deformity, Reports arthralgias and Denies limited range of motion Skin/Breast Denies bleeding lesions, Denies changing lesions and Denies rash Neuro Denies abnormal gait, Denies behavioral changes, Denies confusion and Denies lack of coordination Psych Denies behavioral changes and Denies confusion Physical exam (Primary Care) Vital Signs: Last Vital Signs BP 122/80 11/11/23 09:28 BMI result Body Mass Index 47.0 Tobacco/Smoking Status: Tobacco use Status Tobacco use date assessed 02/12/23 11/11/23 09:32 Patient Tobacco Use Status Never used Tobacco 11/11/23 09:32 e-Cigarette/Vaping Use Never Used 11/11/23 09:32 Thrive Assessment: Date of Thrive Assessment Date Thrive assessed 02/12/23 11/11/23 09:32 Const General: No confusion Orientation/consciousness: patient oriented x3 and No confusion HENMT Head: Yes normal to inspection, Yes normocephalic and Yes atraumatic Ears: external ears normal Eyes General: appearance normal, both eyes and all related structures Eyelids: Yes eyelids normal Conjunctivae: conjunctivae normal Neck Neck: Yes normal visual inspection and Yes supple Resp Effort & Inspection: normal respiratory effort Auscultation: clear to auscultation bilaterally Cardio Jugular venous distension: no JVD Rate: regular rate Rhythm: regular rhythm Heart sounds: S1 normal heart sound present and S2 normal heart sound present GI Inspection: Yes normal to inspection Palpation (GI): Soft to palpation and nontender Auscultation: normal bowel sounds Skin General skin exam: no rashes or lesions noted Neuro General: patient oriented x3, no focal motor deficits and No confusion Extrem General: Yes full ROM Psych Appearance: grossly normal Office Procedures Flu Questionnaire Does the patient have a severe egg allergy?: No Immunizations flu vacc [id number] 6mos up(PF) 60 mcg(15 mcgx4)/0.5 mL IM syringe Performing Provider: Aileen Isabel MD [facility] Documented (not given) by: ZACK Cardozo on 11/11/23 09:50 Reason Not Given: Not Given Assessment and Plan Assessment & Plan (1) Physical exam: Code(s): Z00.00 - Encounter for general adult medical examination without abnormal findings Plan: Repeat in a year. (2) Morbid obesity: Comment: PATIENT IS WELL AWARE OF THE FACT THAT SHE HAS MORBID OBESITY. AND SHE DOES HAVE INTENTION TO LOSE WEIGHT . ENCOURAGED HER TO JOIN. WEIGHT MANAGEMENT PROGRAM IN THE MEANTIME TRY TO RESTRICT CALORIES INTAKE.AND JOIN AN EXERCISE PROGRAM Code(s): E66.01 - Morbid (severe) obesity due to excess calories Plan: Start diet and exercise. BMI goal is less than 30. Orders: Orders Influenza [id number] Immunization Today Z23 - Encounter for immunization Referrals Orthopedics Referral M54.50 - Low back pain, unspecified Coding Level of Care Code Est Pt Prev Care 40-64y(09916) Diagnoses Physical exam Z00.00 Morbid obesity E66.01 Time Spent (min) 31
[2023-11-11 09:28] VITALS: BP 122/80; BMI 47.0
== END 2023-11-11 09:50 | disposition home or self-care (01) ==
PROVIDERS: PCP Internal Medicine; Visit Provider Internal Medicine
DX: Z00.00 Encounter for general adult medical examination without abnormal findings (principal); E66.01 Morbid (severe) obesity due to excess calories; Z68.42 Body mass index [BMI] 45.0-49.9, adult
CPT/HCPCS: 99396

== ENCOUNTER 2023-11-25 16:21 | Outpatient (REF) | payer OTHER, SELFPAY ==
--- NOTE | ~2023-11-25 | XR_ITS ---
EXAMINATION: XR ELBOW, RIGHT CLINICAL INFORMATION: Right elbow pain COMPARISON: None available. TECHNIQUE: AP, lateral, and oblique views of the right elbow. FINDINGS: The bones and soft tissues are normal. No fracture or joint effusion. Alignment is anatomic. Joint spaces are maintained. XR/XR elbow RT 2V IMPRESSION: Normal right elbow.
--- NOTE | ~2023-11-25 | XR_ITS ---
EXAMINATION: XR ELBOW, LEFT CLINICAL INFORMATION: Left elbow pain COMPARISON: None available. TECHNIQUE: AP, lateral, and oblique views of the left elbow. FINDINGS: The bones and soft tissues are normal. No fracture or joint effusion. Alignment is anatomic. Joint spaces are maintained. XR/XR elbow LT 2V IMPRESSION: Normal left elbow.
== END 2023-11-25 16:22 | disposition home or self-care (01) ==
LOC: HO.XRAY 16:21
PROVIDERS: PCP Internal Medicine; Visit Provider Internal Medicine
DX: M25.522 Pain in left elbow (principal); M25.521 Pain in right elbow
CPT/HCPCS: 73070

== ENCOUNTER 2023-12-15 11:56 | Outpatient (REF) | payer OTHER, SELFPAY ==
[2023-12-15 13:13] LABS: Influenza A PCR NEGATIVE (Negative); Influenza B PCR NEGATIVE (Negative); Resp Syncy Virus RNA Qual PCR NEGATIVE (Negative); SARS COV2 PCR INHOUSE NEGATIVE (Negative)
== END 2023-12-15 11:57 | disposition home or self-care (01) ==
LOC: HO.LAB 11:56
PROVIDERS: PCP Internal Medicine; Visit Provider Internal Medicine
DX: Z11.52 Encounter for screening for COVID-19 (principal); Z20.822 Contact with and (suspected) exposure to COVID-19; R09.89 Other specified symptoms and signs involving the circulatory and respiratory systems
CPT/HCPCS: 0241U

== ENCOUNTER 2023-12-24 12:08 | Outpatient (REF) | payer OTHER, SELFPAY ==
--- NOTE | ~2023-12-24 | MR_ITS ---
EXAMINATION: MR LUMBAR SPINE WITHOUT CONTRAST CLINICAL INFORMATION: Lower back pain. Left lower extremity numbness and pain. Evaluate for stenosis. COMPARISON: CT abdomen and pelvis 10/01/2021. TECHNIQUE: MRI of the lumbar spine was obtained using routine sequences without contrast. FINDINGS: There is a slight grade 1 retrolisthesis of L3 on L4. Alignment is otherwise normal. Vertebral heights are preserved. There are mixed predominantly type II degenerative endplate changes at L5-S1. No acute bone marrow signal changes. There is loss of intervertebral disc height and T2 signal intensity at multiple levels related to disc degeneration. The tip of the conus medullaris is located at L1. No mass effect on the conus. Visualized distal cord signal intensity is normal. At L1-L2 there is a slightly bulging disc. No canal stenosis. No mass effect on the traversing or foraminal nerve roots. At L2-L3 there is a shallow left foraminal to far lateral protrusion superimposed upon a slightly bulging disc. No canal stenosis. No mass effect on the traversing or foraminal nerve roots. At L3-L4 there is a slightly bulging disc. Bilateral facet degenerative change. No canal stenosis. No mass effect on the traversing or foraminal nerve roots. At L4-L5 there is an asymmetrically bulging disc to the left. Advanced facet degenerative change. No canal stenosis. There is subtle abutment of the left traversing L5 nerve roots. No foraminal nerve root compression. At L5-S1 there is a slightly bulging disc. Advanced bilateral facet degenerative change. No canal stenosis. No mass effect on the traversing or foraminal nerve roots. Limited visualization of the retroperitoneal anatomy reveals no abnormal finding. Psoas and paraspinal muscle groups are symmetric. MR/MR lumbar spine wo con IMPRESSION: There is multilevel degenerative spondylosis of the lumbar spine with slight grade 1 retrolisthesis of L3 on L4. No canal stenosis. No substantial mass effect on the traversing or foraminal nerve roots.
== END 2023-12-24 12:09 | disposition home or self-care (01) ==
LOC: HO.MRI 12:08
PROVIDERS: PCP Internal Medicine; Visit Provider Physician Assistant
DX: M54.50 Low back pain, unspecified (principal)
CPT/HCPCS: 72148

== ENCOUNTER 2024-01-28 15:54 | Outpatient (AMB) | payer OTHER, SELFPAY ==
--- NOTE | 2024-01-28 16:00 | MHC.PC.OV ---
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 Accompanied by: Daughter Allergies meat Allergy (Severe, Uncoded 01/28/24 16:45) Foot Ulcer percocet Allergy (Severe, Uncoded 01/28/24 16:45) Hives Medication List - Last Reconciled 01/28/24 by Aileen Isabel MD cetirizine 10 mg PO DAILY cholecalciferol (vitamin D3) 50 mcg PO DAILY garlic 200 mg PO DAILY juechfly-xwu-EK-lycopen-lutein 0.4 mg-300 mcg- 250 mcg (Centrum Silver) tabs PO naproxen 500 mg PO BID PRN 14 days oxybutynin chloride 10%(100mg/gram) (Gelnique) 1 g topical DAILY 30 days oxycodone 10 mg (2 x 5 mg) PO BID PRN 5 days thpinfiy-ukux-xyuwo-oreg-capry 100 mg-150 mg- 50 mg-150 mg caps PO ubidecarenone-omega 3-vit E 25-150-200 mg-mg-unit (Co N-51-Mthphff E-Fish Oil) 1 cap PO DAILY vitamin B complex (B Complex-Vitamin B12 tablet) 1 tab PO DAILY vitamin E (dl, acetate) 180 mg PO DAILY Tobacco use date assessed: 01/28/24 Dental Screening Dental Screen Date: 01/28/24 Did you have a dental visit in the last 12 months?: Yes Did you have a dental problem in the last 6 months where you did not have access to dental care?: No Was dental information given to patient?: Patient has dentist HPI HPI Comments History of Present Illness Details This is a 49-year-old female with morbid obesity, obstructive sleep apnea and lumbar disc degeneration that comes today accompanied by daughter complaining of bilateral hand pain with a circular redness that started few weeks ago. She is morbidly obese with a BMI of 48.2 and declines weight loss surgery because had friends that had many complications. On CPAP for her sleep apnea and feels improved. Lumbar disc degeneration is follow by pain management. I will order x-ray for her hands. She has full active range of motion. PFSH Medical History (Updated 01/28/24 @ 16:47 by Aileen Isabel MD) Cough Allergic rhinitis Left hip pain Transaminitis Vitamin D deficiency Hirsutism Discomfort of left ear Morbid obesity VIRGILIO (obstructive sleep apnea) Hypoglycemia Toe pain, right Disc degeneration, lumbar Spondylosis of lumbosacral spine with radiculopathy Dizziness Obesity Arthritis Back pain Surgical History History of repair of ACL History of hysterectomy Family History Father History of kidney cancer Paternal Uncle Throat cancer Paternal Grandfather Heart disease Sister Psoriatic arthritis Mother Diabetes mellitus Other Family history of osteoarthritis Mental health disorder Social History Housing: House Alcohol intake: current Alcohol intake frequency: holidays/special occasions only Alcohol type: beer Patient Tobacco Use Status: Never used Tobacco e-Cigarette/Vaping Use: Never Used Second Hand Smoke Exposure: No service: No 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al status: employed 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 1. Little interest or pleasure in doing things: not at all 2. Feeling down, depressed, or hopeless: not at all 3. Trouble falling or staying asleep, or sleeping too much: not at all 4. Feeling tired or having little energy: not at all 5. Poor appetite or overeating: not at all 6. Feeling bad about yourself - or that you are a failure or have let yourself or your family down: not at all 7. Trouble concentrating on things, such as reading the newspaper or watching television: not at all 8. Moving or speaking so slowly that other people could have noticed. Or the opposite - being so fidgety or restless that you have been moving around a lot more than usual: not at all 9. Thoughts that you would be better off or of hurting yourself in some way: not at all Total score: 0 Depression Screening Interpretation: Negative Depression Screening Done: Yes 48793 - PHQ-9 Billing: Yes Source: Developed by Drs. Viktor Ching, Lola Martin, Rosas Yu and colleagues, with an educational harris from [employer]. Thrive Questionnaire Date Thrive assessed: 01/28/24 I am a: Patient What is your living situation today?: I have a steady place to live Within the past 12 months, did the food you bought not last and you didn't have the money to get more?: Never true Within the past 12 months, did you worry whether your food would run out before you got money to buy more?: Never true Do you have trouble paying for medicines?: No Do you have trouble getting transportation to medical appointments?: No Do you have trouble paying your heating and electricity bill?: No Do you have trouble taking care of your child, family member or friend?: No Do you have trouble with day-to-day activities such as bathing, preparing meals, shopping, managing finances, etc.?: No Are you currently unemployed and looking for a job?: No Are you interested in more education?: No Please select the resources that you would like help with: None Currently or been in a relationship where the following occur: no concerns reported THRIVE Score: 0 AUDIT C Alcohol Use Questionnaire (AUDIT-C) 1. How often do you have a drink containing alcohol?: Monthly or less 2. How many drinks containing alcohol do you have on a typical day when you are drinking?: 1 or 2 3. How often do you have six or more drinks on one occasion?: Never Total Score: 1 Score Reviewed/Action Taken: No ASHER-7 AMB Questionnaire ASHER-7 Date ASHER - 7 assessed: 01/28/24 Feeling nervous, anxious, or on edge: 0 = Not at all Not being able to stop or control worryin = Not at all Worrying too much about different things: 0 = Not at all Trouble relaxin = Not at all Being so restless that it is hard to sit still: 0 = Not at all Becoming easily annoyed or irritable: 0 = Not at all Feeling afraid as if something awful might happen: 0 = Not at all Total ASHER-7 score (0-4 normal; 5-9 mild; 10-14 moderate; 15-21 severe): 0 Source: Developed by Drs. Viktor Ching, Lola Martin, Rosas Yu and colleagues, with an educational harris from [employer]. ASHER-7 Assessment Billing ASHER-7 Assessment Tool: ASHER-7 Assessment 80321 Review of Systems Const All systems reviewed & are unremarkable except as noted in HPI and below Eyes Reports no additional complaints, Denies change in vision and Denies other visual disturbances Card Denies chest pain at rest, Denies chest pain with activity, Denies edema, Denies irregular heart rhythm, Denies claudication, Denies dyspnea, Denies dyspnea on exertion, Denies orthopnea, Denies paroxysmal nocturnal dyspnea and Denies slow heart rate Resp Denies cough, Denies dyspnea and Denies dyspnea on exertion GI Denies abdominal pain, Denies change in bowel habits, Denies excessive flatus, Denies nausea and Denies vomiting Denies urinary incontinence, Denies urinary hesitancy and Denies urinary urgency Musc Denies atrophy, Denies deformity and Denies limited range of motion Physical exam (Primary Care) Vital Signs: Last Vital Signs BP 130/80 01/28/24 16:08 BMI result Body Mass Index 48.2 Tobacco/Smoking Status: Tobacco use Status Tobacco use date assessed 01/28/24 01/28/24 16:18 Patient Tobacco Use Status Never used Tobacco 01/28/24 16:00 e-Cigarette/Vaping Use Never Used 01/28/24 16:00 PHQ-9: PHQ-9 Score PHQ-9: Total score 0 01/28/24 16:18 Depression Screening Interpretation: Negative Thrive Assessment: Date of Thrive Assessment Date Thrive assessed 01/28/24 01/28/24 16:18 Currently or been in a relationship where the following occur: no concerns reported Eyes General: appearance normal, both eyes and all related structures Eyelids: Yes eyelids normal Conjunctivae: conjunctivae normal Neck Neck: Yes normal visual inspection and Yes supple Resp Effort & Inspection: normal respiratory effort Auscultation: clear to auscultation bilaterally Cardio Jugular venous distension: no JVD Rate: regular rate Rhythm: regular rhythm Heart sounds: S1 normal heart sound present and S2 normal heart sound present Extrem General: Yes full ROM Assessment and Plan Assessment & Plan (1) Right hand pain: Code(s): M79.641 - Pain in right hand Plan: X-ray ordered. (2) Left hand pain: Code(s): M79.642 - Pain in left hand Plan: X-ray ordered. (3) Morbid obesity: Comment: PATIENT IS WELL AWARE OF THE FACT THAT SHE HAS MORBID OBESITY. AND SHE DOES HAVE INTENTION TO LOSE WEIGHT . ENCOURAGED HER TO JOIN. WEIGHT MANAGEMENT PROGRAM IN THE MEANTIME TRY TO RESTRICT CALORIES INTAKE.AND JOIN AN EXERCISE PROGRAM Code(s): E66.01 - Morbid (severe) obesity due to excess calories Plan: Start diet and exercise. BMI goal is less than 30. (4) Disc degeneration, lumbar: Code(s): M51.36 - Other intervertebral disc degeneration, lumbar region Plan: Follow-up with pain management. Continue naproxen as needed. Use oxycodone only for severe pain. (5) VIRGILIO (obstructive sleep apnea): Comment: SEVERE OBSTRUCTIVE SLEEP APNEA WITH TOTAL SLEEP TIME AHI 30. ON CPAP THERAPY, NASAL PILLOWS ,A PAP MODE PRESSURE SETTING 6-20 CM. VERY HAPPY AND 100% COMPLIANT. NO ISSUES WITH THE MASK OR CPAP MACHINE. ADVISED CONTINUE USING REGULARLY. Code(s): G47.33 - Obstructive sleep apnea (adult) (pediatric) Plan: Continue CPAP Orders: Orders XR hand RT 2V Today M79.641 - Pain in right hand XR hand LT 2V Today M79.642 - Pain in left hand Medications: New diclofenac sodium 1% (Aleve (diclofenac)) apply to single elbow, wrist or hand; for hand includes palm/fingers/back of hand 2 grams topical QID 30 days 100 grams 0RF Refilled cholecalciferol (vitamin D3) 50 mcg PO DAILY 30 ea 2RF E55.9 - Vitamin D deficiency, unspecified Coding Level of Care Code Est Pt Level 4 (30892) Diagnoses Right hand pain M79.641 Left hand pain M79.642 Morbid obesity E66.01 Disc degeneration, lumbar M51.36 VIRGILIO (obstructive sleep apnea) G47.33 Additional Codes ASHER-7 Assessment Billing - ASHER-7 Assessment Tool: ASHER-7 Assessment 40955 ([id number]) Time Spent (min) 23
[2024-01-28 16:08] VITALS: BP 130/80; BMI 48.2
== END 2024-01-28 16:51 | disposition home or self-care (01) ==
PROVIDERS: PCP Internal Medicine; Visit Provider Internal Medicine
DX: M79.641 Pain in right hand (principal); M79.642 Pain in left hand; M51.36 Other intervertebral disc degeneration, lumbar region; G47.33 Obstructive sleep apnea (adult) (pediatric)
CPT/HCPCS: 99214

== ENCOUNTER 2024-01-29 10:50 | Outpatient (REF) | payer OTHER, SELFPAY ==
--- NOTE | ~2024-01-29 | XR_ITS ---
EXAMINATION: XR HAND, BILATERAL CLINICAL INFORMATION: Pain in bilateral hands. COMPARISON: Left wrist radiographs of 01/20/2023. TECHNIQUE: 3 views of each hand. FINDINGS: Left Hand: Moderate degenerative changes in the first carpometacarpal joint with joint space narrowing and hypertrophic change. Bone mineralization is normal. Minimal degenerative changes in scattered IP joints. Mild degenerative changes in the first MCP joint. Right Hand: Moderate degenerative changes in the first carpometacarpal joint with joint space narrowing and hypertrophic change. Bone mineralization is normal. Minimal degenerative changes in scattered IP joints. Small rounded density at the ulnar aspect of the base of the second proximal phalange. XR/XR hand RT 2V IMPRESSION: Moderate degenerative changes in the bilateral first carpometacarpal joints. Recommend follow-up imaging in 10-14 days if fracture is suspected.
--- NOTE | ~2024-01-29 | XR_ITS ---
EXAMINATION: XR HAND, BILATERAL CLINICAL INFORMATION: Pain in bilateral hands. COMPARISON: Left wrist radiographs of 01/20/2023. TECHNIQUE: 3 views of each hand. FINDINGS: Left Hand: Moderate degenerative changes in the first carpometacarpal joint with joint space narrowing and hypertrophic change. Bone mineralization is normal. Minimal degenerative changes in scattered IP joints. Mild degenerative changes in the first MCP joint. Right Hand: Moderate degenerative changes in the first carpometacarpal joint with joint space narrowing and hypertrophic change. Bone mineralization is normal. Minimal degenerative changes in scattered IP joints. Small rounded density at the ulnar aspect of the base of the second proximal phalange. XR/XR hand LT 2V IMPRESSION: Moderate degenerative changes in the bilateral first carpometacarpal joints. Recommend follow-up imaging in 10-14 days if fracture is suspected.
== END 2024-01-29 10:51 | disposition home or self-care (01) ==
LOC: HO.XRAY 10:50
PROVIDERS: PCP Internal Medicine; Visit Provider Internal Medicine
DX: M79.641 Pain in right hand (principal); M79.642 Pain in left hand
CPT/HCPCS: 73120

== ENCOUNTER 2024-02-10 11:05 | Outpatient (AMB) | payer OTHER, SELFPAY ==
--- NOTE | 2024-02-10 11:13 | A.SPINEOV_ITS ---
Intake Intake Visit Reasons: Spondylosis Intake Note: Ms. Miramontes is here today c/o low back pain that radiates down to the feet. [employer] Required: No Allergies meat Allergy (Severe, Uncoded 01/28/24 16:45) Foot Ulcer percocet Allergy (Severe, Uncoded 01/28/24 16:45) Hives Assessment & Plan Assessment & Plan (1) Lumbar spondylosis: Code(s): M47.816 - Spondylosis without myelopathy or radiculopathy, lumbar region Plan: Dear Dr. Ankush Isabel, Thank you for referring Loly to our office today. 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 She comes in today with a chief complaint of low back pain with rad iation into her left anterior thigh and left dorsal foot. She states that this pain has been ongoing for the past 5 years. She is unable to identify an inciting incident. She states that walking and completing household tasks makes her pain worse. She states that sitting and resting helps to alleviate her pain. She is currently taking 1-2 5 mg oxycodone per day in order to complete ADLs. She does report difficulties with sleep, and states that she has to arrange her legs in a certain way in order to not experience numbness/burning. She does feel as though the pain is gradually worsening as time progresses. She was previously seen and treated by pain management who performed bilateral L4-5, and L5-S1 TFSE injections. She reports 100% relief for 2 weeks from these injections. Unfortunately shortly thereafter she had return of symptoms. Of note, she was recently evaluated by [facility] who offered her a left-sided L4-5 lumbar decompression. She is here today for a 2nd opinion regarding this surgical decision. PMH: Osteoarthritis, carpal tunnel syndrome bilateral hands. History of hysterectomy, history of right ACL repair. Social hx: The patient does not smoke, reports no substance use. Medications: Cetirizine, vitamin D3, diclofenac, garlic, naproxen, oxybutynin, oxycodone, turmeric, vitamin-B. Allergies: Percocet (again, no issue with Oxycodone). Physical exam: The patient has 5/5 strength in her upper and lower extremities. Reduced sensation in her left dorsal foot compared to the right. The rest of her sensation is grossly intact. Her reflexes are 2+ intact. She is able to ambulate well and rises from a seated position without difficulty. (-) Rogers's, (-) clonus, (-) bilateral straight leg raise. Imaging review: MRI of the lumbar spine completed here at [facility] shows diffuse spondylosis of the lumbar spine. At L4-5 she has mild- moderate central canal stenosis, mild-moderate right-sided foraminal stenosis, and severe left-sided foraminal stenosis causing significant compression of the left-sided L5 nerve root. She also has a slight spondylolisthesis at L3-4, and she has severe degenerative disc disease at L5-S1 causing endplate edema at these levels. Impression: Loly is a pleasant 49-year-old female who comes in today with a chief complaint of low back pain with radiation into her left anterior thigh and left dorsal foot. This is classic for a left-sided L5 radiculopathy. She reports no inciting incident, but states that her symptoms have been worsening as the years have progressed. She is now to the point where she has difficulty completing her ADLs without pain, needs to take narcotic pain medication daily. Her symptoms and history are most consistent with a severe ongoing compression of the left-sided L5 nerve root. The disc degeneration at L5-S1 does not appear to be causing any significant stenosis. I will be sending her for a set of flexion/extension x-rays to evaluate for any movement of the spine given the slight listhesis seen at L3-4. I will review this case with Dr. Taveras and reach back out to the patient after we are able to discuss potential surgical interventions. Tentatively, we discussed the possibility of an L4-5 lumbar decompression as this is the most likely cause of her symptoms. Thank you for allowing us to care for your patient. The total time spent with this visit with this patient was 45minutes reviewing history, physical exam, MRI imaging review, and implementation of treatment plan or further diagnostic testing Damon Taveras MD,PhD [facility] Orders: Orders XR lumbar spine 4V min Today M47.816 - Spondylosis without myelopathy or radiculopathy, lumbar region Coding Level of Care Code New Pt Level 4 (36463) Diagnoses Lumbar spondylosis M47.816
== END 2024-02-10 11:47 | disposition home or self-care (01) ==
PROVIDERS: PCP Internal Medicine; Referring Provider Internal Medicine; Visit Provider Physician Assistant
DX: M47.816 Spondylosis without myelopathy or radiculopathy, lumbar region (principal)
CPT/HCPCS: 99204

== ENCOUNTER 2024-02-10 11:05 | Outpatient (REF) | payer OTHER, SELFPAY ==
--- NOTE | ~2024-02-10 | XR_ITS ---
EXAMINATION: XR LUMBOSACRAL SPINE WITH OBLIQUES CLINICAL INFORMATION: Spondylosis without myelopathy or radiculopathy. COMPARISON: MR lumbar spine of December 2023. TECHNIQUE: AP, lateral neutral, flexion and extension views of the lumbar spine. FINDINGS: Dextroscoliosis of the lumbar spine. Advanced degenerative changes in the imaged lower thoracic spine. Facet arthritis in the mid to lower lumbar spine. Grade 1 anterolisthesis of L4 on L5 with flexion and extension. Multilevel lumbar spondylosis with moderate loss of disc space height at L4-L5 and severe loss of disc space height at L5-S1. XR/XR lumbar spine 4V min IMPRESSION: Multilevel lumbar spondylosis most notable at L4-L5 and L5-S1.
== END 2024-02-10 11:06 | disposition home or self-care (01) ==
LOC: HO.HOSX 11:05
PROVIDERS: PCP Internal Medicine; Visit Provider Physician Assistant
DX: M47.816 Spondylosis without myelopathy or radiculopathy, lumbar region (principal)
CPT/HCPCS: 72110

== ENCOUNTER 2024-02-25 09:39 | Outpatient (AMB) | payer OTHER, SELFPAY ==
--- NOTE | 2024-02-25 09:46 | MHC.OFFVIS ---
Intake Vital Signs 02/25/24 09:47 Height 5 ft 4 in Weight 277 lb BMI 47.5 BP 120/70 Blood Pressure Location Lt brachial Position Sitting Pulse 78 Pulse Source Pulse Oximeter Pulse Oximetry (%) 99 Oxygen Delivery Method Room Air Intake Visit Reasons: Obstructive sleep apnea Intake Note: pt is here for follow up and states she is doing well with cpap. [employer] Required: No Allergies meat Allergy (Severe, Uncoded 02/25/24 10:04) Foot Ulcer percocet Allergy (Severe, Uncoded 02/25/24 10:04) Hives Medication List - Last Reconciled 02/25/24 by Noé Blankenship MD cetirizine 10 mg PO DAILY cholecalciferol (vitamin D3) 50 mcg PO DAILY diclofenac sodium 1% (Aleve (diclofenac)) 2 grams topical QID 30 days garlic 200 mg PO DAILY rbundegf-foa-EV-lycopen-lutein 0.4 mg-300 mcg- 250 mcg (Centrum Silver) tabs PO oxybutynin chloride 10%(100mg/gram) (Gelnique) 1 g topical DAILY 30 days oxycodone 10 mg (2 x 5 mg) PO BID PRN 5 days husaywvz-jykb-feahn-oreg-capry 100 mg-150 mg- 50 mg-150 mg caps PO ubidecarenone-omega 3-vit E 25-150-200 mg-mg-unit (Co S-57-Lpkfuhh E-Fish Oil) 1 cap PO DAILY vitamin B complex (B Complex-Vitamin B12 tablet) 1 tab PO DAILY vitamin E (dl, acetate) 180 mg PO DAILY Do you need a note to return to daycare/school/sports/work: No HPI Obstructive sleep apnea HPI Details 49 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 SHE COMES FOR FOLLOW-UP AFTER 6 MONTHS. SHE IS VERY HAPPY WITH THE USE OF CPAP AND USES AT LEAST 8-9 HOURS EVERY NIGHT,. WITH GOOD SLEEP NO ISSUE WITH THE CPAP MASK OR DEVICE. SHE IS TRYING TO LOSE WEIGHT SLOWLY ON HER OWN. SHE DOES HAVE INTERMITTENT SYMPTOMS OF ALLERGIC RHINITIS BUT AT PRESENT ARE ONLY MINIMAL. [facility] Medical History Cough Allergic rhinitis Left hip pain Transaminitis Vitamin D deficiency Hirsutism Discomfort of left ear Morbid obesity VIRGILIO (obstructive sleep apnea) Hypoglycemia Toe pain, right Disc degeneration, lumbar Spondylosis of lumbosacral spine with radiculopathy Dizziness Obesity Arthritis Back pain Surgical History History of repair of ACL History of hysterectomy Family History Father History of kidney cancer Paternal Uncle Throat cancer Paternal Grandfather Heart disease Sister Psoriatic arthritis Mother Diabetes mellitus Other Family history of osteoarthritis Mental health disorder Social History Housing: House Alcohol intake: current Alcohol intake frequency: holidays/special occasions only Alcohol type: beer Patient Tobacco Use Status: Never used Tobacco e-Cigarette/Vaping Use: Never Used Second Hand Smoke Exposure: No service: No 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al status: employed 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al exposures/hazards: No Cognitive needs: No Hearing needs: No Vision needs: Yes Review of Systems Const All systems reviewed & are unremarkable except as noted in HPI and below Denies snoring Eyes Reports no additional complaints ENT Reports no additional complaints Card Denies chest pain, Denies irregular heart rhythm and Denies leg edema Resp Reports no additional complaints, Denies cough, Denies snoring and Denies wheezing GI Reports no additional complaints Reports no additional complaints Musc Reports back pain Skin/Breast Reports system reviewed and no additional complaints, except as documented Neuro Reports no additional complaints Psych Reports no additional complaints Aller/Immun Denies wheezing Physical Exam Vital Signs: Last Vital Signs Pulse 78 02/25/24 09:47 BP 120/70 02/25/24 09:47 Pulse Ox 99 02/25/24 09:47 Oxygen Delivery Method Room Air 02/25/24 09:47 BMI result Body Mass Index 47.5 Const General: healthy appearing (EXCEPT FOR BEING OVERWEIGHT), comfortable, no acute distress, alert and awake Orientation/consciousness: patient oriented x3 HEENT Head: Yes normal to inspection General nose exam: No nasal polyps present and No nasal discharge present Face and sinus: Yes sinuses nontender Mouth: oropharynx normal Throat: Yes posterior oropharynx normal Eyes General: appearance normal, both eyes and all related structures Neck Neck: Yes normal visual inspection, Yes no lymphadenopathy, Yes trachea midline and Yes no JVD Thyroid: Thyroid normal Chest Chest palpation & inspection: normal inspection of the chest, normal palpation of entire chest wall and no tenderness Resp Effort & Inspection: normal respiratory effort and no cough Auscultation: clear to auscultation bilaterally and no wheezes Percussion: percussion normal Cardio Palpation: normal PMI Rate: regular rate Rhythm: regular rhythm Heart sounds: no gallops and no murmurs Peripheral pulses: Peripheral pulses 2+ throughout GI Palpation (GI): Soft to palpation, nontender, No hepatosplenomegaly present, no masses and Other GI palpation findings present Auscultation: normal bowel sounds Back/Spine/Pelvis Thoracic/Lumbar Spine: thoracic and lumbar spine normal to inspection and thoraco-lumbar ROM limited Skin General skin exam: no rashes or lesions noted Neuro General: patient oriented x3 and no focal motor deficits Cranial nerves: Yes CN's II-XII intact bilaterally Extrem General: Yes normal to inspection, Yes no clubbing, cyanosis or edema and Yes no calf tenderness Psych Appearance: grossly normal and well kempt Speech and movement: Normal speech and movement present Results Reviewed Results Reviewed: COMPLIANCE REPORT REVIEWED AND SHE HAS USED THE CPAP 30/30 NIGHTS, 100%. AVERAGE USE IT PER NIGHT 8 HOURS 42 MINUTES.. NO SIGNIFICANT AIR LEAK PRESSURE USED 15-17 CM. RESIDUAL AHI 1.1 Assessment & Plan Assessment & Plan (1) Morbid obesity: Comment: PATIENT IS WELL AWARE OF THE FACT THAT SHE HAS MORBID OBESITY. AND SHE DOES HAVE INTENTION TO LOSE WEIGHT . Code(s): E66.01 - Morbid (severe) obesity due to excess calories Plan: ENCOURAGED HER TO JOIN WEIGHT MANAGEMENT PROGRAM, BUT SHE IS TRYING TO DO IT ON HER OWN. SHE IS WELL EDUCATED TO RESTRICT CALORIES INTAKE.AND JOIN AN EXERCISE PROGRAM (2) VIRGILIO (obstructive sleep apnea): Comment: SEVERE OBSTRUCTIVE SLEEP APNEA WITH TOTAL SLEEP TIME AHI 30. ON CPAP THERAPY, NASAL PILLOWS ,A PAP MODE PRESSURE SETTING 6-20 CM. VERY HAPPY AND 100% COMPLIANT. NO ISSUES WITH THE MASK OR CPAP MACHINE. Code(s): G47.33 - Obstructive sleep apnea (adult) (pediatric) Plan: COMMENDED FOR GOOD COMPLIANCE, AND ADVISED CONTINUE USING REGULARLY. (3) Allergic rhinitis: Comment: PATIENT HAS HISTORY OF SEASONAL ALLERGIES. AT PRESENT HER SYMPTOMS ARE MINIMAL. Code(s): J30.9 - Allergic rhinitis, unspecified Plan: ADVISE THAT SHE CAN USE THE OTC ANTIHISTAMINIC AGENTS SUCH LORATADINE 10 MG PER DAY NEEDED. Coding Level of Care Code Est Pt Level 3 (82393) Diagnoses Morbid obesity E66.01 VIRGILIO (obstructive sleep apnea) G47.33 Allergic rhinitis J30.9
[2024-02-25 09:47] VITALS: BP 120/70; PULSE 78; O2SAT 99; BMI 47.5
== END 2024-02-25 10:04 | disposition home or self-care (01) ==
PROVIDERS: PCP Internal Medicine; Visit Provider Internal Medicine
DX: E66.01 Morbid (severe) obesity due to excess calories (principal); G47.33 Obstructive sleep apnea (adult) (pediatric); J30.9 Allergic rhinitis, unspecified
CPT/HCPCS: 99213

== ENCOUNTER → 2024-02-25 09:39 | Outpatient (BNVA) | payer OTHER, SELFPAY | PROVIDERS: PCP Internal Medicine; Visit Provider Internal Medicine ==

== ENCOUNTER 2024-03-09 15:39 | Outpatient (REF) | payer OTHER, SELFPAY ==
[2024-03-09 15:50] LABS: MANUAL DIFF FLAG NO
[2024-03-09 16:25] LABS: Basophils Percent Auto 0.6 % (0-2); Eosinophils Absolute Auto 0.1 X10*3/uL (0.0-0.4); Eosinophils Percent Auto 2.3 % (0-4); Hemoglobin 14.3 g/dl (12.0-16.0); Imm Gran Abs Auto 0.01 X10*3/uL (0.00-0.03); Imm Gran Pct Auto 0.2 % (0.0-0.4); Lymphocytes Absolute Auto 2.5 X10*3/uL (1.2-4.9); Lymphocytes Percent Auto 47.6 % (20-40); Mean Corpuscular HGB Conc 32.5 g/dl (31.0-35.0); Mean Corpuscular Hemoglobin 27.9 pg (27.0-33.0); Mean Corpuscular Volume 85.8 fL (80.0-98.0); Mean Platelet Volume 11.5 fL (9.4-12.3); Monocytes Absolute Auto 0.5 X10*3/uL (0.1-1.2); Monocytes Percent Auto 9.5 % (2-11); Neutrophils Absolute Auto 2.1 x10*3/uL (2.0-8.3); Neutrophils Percent Auto 39.8 % (45-73); Platelet Count 216 X10*3/uL (160-400); Red Blood Count 5.13 X10*6/uL (4.20-5.50); White Blood Count 5.3 X10*3/uL (4.8-10.8)
[2024-03-09 16:27] LABS: Appearance Urine Clear; Color Urine Yellow; Glucose Urine UA Negative (Negative); Leukocyte Esterase Urine Small (1+) (Negative); Nitrite Urine Negative (Negative); PH 6.5 (5.0-9.0); Specific Gravity - Urine 1.025 (1.005-1.025); UMIC TRIGGER UACC YES; Urine Blood Negative (Negative); Urine Ketones Negative (Negative); Urine Protein Negative (Neg-Trace)
[2024-03-09 16:44] LABS: Bacteria Urine 1+ (None Seen); Hyaline Casts Urine 0-2 /LPF (0-2); RBC Urine 0-2 /HPF (0-2); UACC Culture Trigger YES; WBC Urine 0-5 /HPF (0-5)
[2024-03-09 17:20] LABS: Alanine Aminotransferase 65 U/L (0-31); Albumin Level 4.4 g/dL (3.5-5.0); Alkaline Phosphatase 88 U/L (39-117); Anion Gap 14 (12-20); Aspartate Amino Transferase 34 U/L (5-31); Bilirubin Total 0.3 mg/dL (0.0-1.0); Blood Urea Nitrogen 14 mg/dL (9-16); C Reactive Protein 0.15 mg/dL (< or = 0.50); Carbon Dioxide 26 mmol/L (22-29); Chloride 106 mmol/L (96-108); Estimated Glomerular Filt Rate > 60; Glucose Random 100 mg/dL (60-115); Lipase 26 U/L (8-78); Potassium 4.4 mmol/L (3.3-5.1); Sodium 142 mmol/L (135-145); Total Protein 7.6 g/dL (6.5-8.0)
== END 2024-03-09 15:40 | disposition home or self-care (01) ==
LOC: HO.LAB 15:39
PROVIDERS: PCP Internal Medicine; Visit Provider Internal Medicine Gastroenterology
DX: R10.9 Unspecified abdominal pain (principal); K75.81 Nonalcoholic steatohepatitis (NASH); R30.0 Dysuria
CPT/HCPCS: 36415; 80053; 81001; 83690; 85025; 86140; 87086

== ENCOUNTER 2024-03-25 09:02 | Outpatient (AMB) | payer OTHER, SELFPAY ==
--- NOTE | 2024-03-25 09:11 | A.OFFVIS_ITS ---
Vital Signs 03/25/24 09:18 Height 5 ft 4 in Weight 279 lb BMI 47.9 BP 176/74 H Blood Pressure Location Lt brachial Position Sitting Pulse 85 Intake Visit Reasons: f/u pain in epigastric Allergies meat Allergy (Severe, Uncoded 03/25/24 09:19) Foot Ulcer percocet Allergy (Severe, Uncoded 03/25/24 09:19) Hives HPI HPI f/u pain in epigastric: Details: 49 yr old f w h/o Vit D def, VIRGILIO, spondylosis here for f/u of abn LFT RECAP: she has had chronic abn LFT with ALt/AST elevation <100 sometimes drinks alcohol every few months non smoker no drug use otherwise she feels well CT scan : 09/2021-- fatty liver, degen spinal disease Colonoscopy: 2021--tubular adenoma, repeat 5 yrs INTERIM: trying to lose weight, doing more exercise, she has been using tea, avoiding fried foods more sea food in diet no abdominal pain no nausea, vomiting appetite good no constipation or diarrhea she takes vit E once a day when she remembers she has low blood sugars EXAM: GENERAL: The patient is well developed and nontoxic. VITAL SIGNS:see workflow HEENT: Nonicteric sclerae, PERRLA, EOMI. Oropharynx clear. Moist mucous membranes. Conjunctivae appear well perfused. No thyroid mass. CHEST: Chest wall is nontender. HEART: Regular rate and rhythm without murmurs. LUNGS: Clear to auscultation bilaterally. ABDOMEN: Soft, positive bowel sounds, nontender, no organomegaly.no flank tende rness SKIN: No rash, no excessive bruising, petechiae, or purpura. NEUROLOGIC: Cranial nerves II-XII intact without motor/sensory deficit. a/P: 1/ NEGRON related liver injury 2/ low blood sugars which she has confirmed with glucometer PLAN: 1/ emphasized taking Vit E 400 units bid for 3-6 months then titrate down--add trental 2/ counselled on progression of Negron to cirrhosis, and improtance of weight loss, diet and lifestyle changes as before 3/ refer endocrine, r/o insulinoma --might be causing weight gain, obesity 4/ us elastography to survey liver PFSH Medical History Cough Allergic rhinitis Left hip pain Transaminitis Vitamin D deficiency Hirsutism Discomfort of left ear Morbid obesity VIRGILIO (obstructive sleep apnea) Hypoglycemia Toe pain, right Disc degeneration, lumbar Spondylosis of lumbosacral spine with radiculopathy Dizziness Obesity Arthritis Back pain Surgical History Hx of colonoscopy History of repair of ACL History of hysterectomy Family History Father History of kidney cancer Paternal Uncle Throat cancer Paternal Grandfather Heart disease Sister Psoriatic arthritis Mother Diabetes mellitus Other Family history of osteoarthritis Mental health disorder Social History Housing: House Alcohol intake: current Alcohol intake frequency: holidays/special occasions only Alcohol type: beer Patient Tobacco Use Status: Never used Tobacco e-Cigarette/Vaping Use: Never Used Second Hand Smoke Exposure: No service: No 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al status: employed 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al exposures/hazards: No Cognitive needs: No Hearing needs: No Vision needs: Yes Physical Exam Vital Signs: Last Vital Signs Pulse 85 03/25/24 09:18 BP 176/74 H 03/25/24 09:18 BMI result Body Mass Index 47.9 Assessment & Plan Assessment & Plan (1) Hypoglycemia: Code(s): E16.2 - Hypoglycemia, unspecified Category: Medical Plan: see above Orders: Orders US abdomen beltran w elastography Today K74.60 - Unspecified cirrhosis of liver, K75.81 - Nonalcoholic steatohepatitis (NEGRON) Referrals Endocrinology Referral E16.2 - Hypoglycemia, unspecified Medications: New pentoxifylline ER must administer with a meal/food 400 mg PO TID 90 tabs 3RF Refilled vitamin E (dl, acetate) 180 mg PO DAILY 90 caps 3RF Coding Level of Care Code Est Pt Level 3 (45746) Diagnoses Hypoglycemia E16.2
[2024-03-25 09:18] VITALS: BP 176/74; PULSE 85; BMI 47.9
== END 2024-03-25 10:03 | disposition home or self-care (01) ==
PROVIDERS: PCP Internal Medicine; Visit Provider Internal Medicine Gastroenterology
DX: E16.2 Hypoglycemia, unspecified (principal)
CPT/HCPCS: 99213

== ENCOUNTER → 2024-03-25 09:02 | Outpatient (BNVA) | payer OTHER, SELFPAY | PROVIDERS: PCP Internal Medicine; Visit Provider Internal Medicine Gastroenterology ==

== ENCOUNTER 2024-04-15 12:57 | Outpatient (AMB) | payer OTHER, SELFPAY ==
[2024-04-15 13:04] VITALS: BP 110/72; PULSE 74; TEMP 36.5; O2SAT 98; BMI 48.1
--- NOTE | 2024-04-15 13:04 | MHC.OFFWIV ---
Intake Vital Signs 04/15/24 13:04 Height 5 ft 4 in Weight 280 lb BMI 48.1 BP 110/72 Blood Pressure Location Lt brachial Position Sitting Pulse 74 Pulse Source Pulse Oximeter Temp 97.7 F Temp Source Temporal Artery Scan Pulse Oximetry (%) 98 Oxygen Delivery Method Room Air Intake Visit Reasons: EST/ right ankle pain/ swelling (lobby) Intake Note: pt is here today for rt ankle pain swelling started 1 week ago Patient Tobacco Use Status: Never used Tobacco Allergies meat Allergy (Severe, Uncoded 03/25/24 09:19) Foot Ulcer percocet Allergy (Severe, Uncoded 03/25/24 09:19) Hives Do you need a note to return to daycare/school/sports/work: No HPI HPI Comments History of Present Illness Details She presents to office with R ankle pain and swelling Ongoing x 1 week No trauma or injury Inner R ankle She has been working out x 1 month; wears sneakers The ones she was wearing had thick heel and she was walking uphill and after this it was painful Pain with walking No medicine for it improves with rest 5/10 ache PFSH Medical History Cough Allergic rhinitis Left hip pain Transaminitis Vitamin D deficiency Hirsutism Discomfort of left ear Morbid obesity VIRGILIO (obstructive sleep apnea) Hypoglycemia Toe pain, right Disc degeneration, lumbar Spondylosis of lumbosacral spine with radiculopathy Dizziness Obesity Arthritis Back pain Surgical History Hx of colonoscopy History of repair of ACL History of hysterectomy Family History Father History of kidney cancer Paternal Uncle Throat cancer Paternal Grandfather Heart disease Sister Psoriatic arthritis Mother Diabetes mellitus Other Family history of osteoarthritis Mental health disorder Social History Housing: House Alcohol intake: current Alcohol intake frequency: holidays/special occasions only Alcohol type: beer Patient Tobacco Use Status: Never used Tobacco e-Cigarette/Vaping Use: Never Used Second Hand Smoke Exposure: No service: No 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al status: employed 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al exposures/hazards: No Cognitive needs: No Hearing needs: No Vision needs: Yes Review of Systems Const Denies chills and Denies fever(s) Card Reports pedal edema (R ankle medial aspect) and Denies leg edema Musc Reports arthralgias, Reports joint swelling, Denies numbness and Denies tingling Skin/Breast Denies erythema Neuro Denies numbness and Denies tingling Physical Exam Vital Signs: Last Vital Signs Temp 97.7 F 04/15/24 13:04 Pulse 74 04/15/24 13:04 BP 110/72 04/15/24 13:04 Pulse Ox 98 04/15/24 13:04 Oxygen Delivery Method Room Air 04/15/24 13:04 BMI result Body Mass Index 48.1 General: Non-toxic, NAD. Speaking full sentences. Skin: Warm dry throughout. No overlying erythema or ecchymosis to R medial ankle. + edema noted inferior to R medial malloli. Area tender to palpation Respiratory: No respiratory distress Cardiac: DP pulse intact. No medal edema or calf tenderness RLE MSK: No tenderness to palpation R knee, medial or lateral malleoli, achilles, calcaneus, metatarsal bones, digits r foot, plantar fascia. + tenderness to palpation R anle medial inferior to malleoli. + full ROM with dorsal and plantar flexion Neurology: A/O. No aphasia or facial droop. Gait without abnormality Psych: Good mood and affect Assessment & Plan Assessment & Plan (1) Medial ankle sprain: Code(s): S93.429A - Sprain of deltoid ligament of unspecified ankle, initial encounter Qualifiers: Encounter type: initial encounter Laterality: right Qualified Code(s): S93.421A - Sprain of deltoid ligament of right ankle, initial encounter Plan: Patient seen and evaluated. No xray indicated [place] applied Rest ice, elevate Will use topical pain cream Patient gave verbal understanding and had no additional questions or concerns at time of discharge All questions answered Coding Level of Care Code Est Pt Level 3 (77336) Diagnoses Sprain of right medial ankle joint, initial encounter S93.421A Encounter type: initial encounter Laterality: right
== END 2024-04-15 13:29 | disposition home or self-care (01) ==
PROVIDERS: PCP Internal Medicine; Visit Provider Physician Assistant
DX: S93.421A Sprain of deltoid ligament of right ankle, initial encounter (principal)
CPT/HCPCS: 99213

== ENCOUNTER 2024-04-22 08:07 | Outpatient (REF) | payer OTHER, SELFPAY ==
--- NOTE | ~2024-04-22 | US_ITS ---
EXAMINATION: US ABDOMEN LIMITED WITH LIVER ELASTOGRAPHY CLINICAL INFORMATION: TRIMBLE. COMPARISON: CT abdomen and pelvis 10/01/2021. TECHNIQUE: Real-time imaging of the abdominal viscera. Noninvasive ultrasound liver fibrosis assessment is performed using [employer] ElastPQ point quantification shear wave elastography (2D-SWE) with a C5-2 MHz transducer. Multiple elastography samples are obtained. FINDINGS: PANCREAS: The pancreas appears unremarkable, without masses or ductal dilatation, with the exception of the tail which is obscured by bowel gas. LIVER: The liver demonstrates normal size and contour but with increased echogenicity consistent with hepatic steatosis. No focal lesion or intrahepatic biliary duct dilatation. The right lobe measures 16.3 cm in length. The left lobe measures 13.5 cm in length. Portal flow is towards the liver (hepatopetal). Shear wave liver elastography median stiffness is 1.17 m/s (reference: normal median stiffness is 1.3 m/s or less). IQR/median stiffness to assess sampling precision is 0.13 (reference: good quality data set is IQR/median stiffness of 0.15 or less). GALLBLADDER: Normal. The gallbladder is physiologically distended without evidence of stones, sludge, polyps, wall thickening or pericholecystic fluid. COMMON BILE DUCT: Normal in caliber measuring 0.9 cm in diameter. RIGHT KIDNEY: Normal. No hydronephrosis. No renal calculi or focal parenchymal lesions. The kidney measures 10.5 cm in maximum dimension. FREE FLUID: None. US/US abdomen beltran w elastography IMPRESSION: 1. Echogenic liver consistent with hepatic steatosis. 2. Liver elastography: Measurements are suggestive of compensated advanced chronic liver disease but need further test for confirmation. REFERENCE: Society of Radiologists in Ultrasound Liver Stiffness Thresholds (2020): LIVER STIFFNESS THRESHOLDS: *Liver Stiffness equal or less than 1.3 m/s: High probability of being normal. *Liver Stiffness less than 1.7 m/s: In the absence of other known clinical signs, rules out compensated advanced chronic liver disease. *Liver Stiffness 1.7-2.1 m/s: Suggestive of compensated advanced chronic liver disease but need further test for confirmation. *Liver Stiffness over 2.1 m/s: Rules in compensated advanced chronic liver disease. *Liver Stiffness over 2.4 m/s: Suggestive of clinically significant portal hypertension. QUALITY OF DATA SET: *IQR/Median value equal or less than 0.15 implies a quality data set. *IQR/Median value over 0.15 implies a poor quality data set. SIGNIFICANT CHANGE FROM PRIOR EXAM: Significant change if liver stiffness measurement is 10% or greater from prior exam. OTHER CONSIDERATIONS: The stage of liver fibrosis may be overestimated in the setting of acute hepatitis, liver inflammation, elevated liver function tests, hepatic vascular congestion, obstructive cholestasis, non-fasting state, and infiltrative diseases such as amyloidosis and lymphoma. In some patients with NAFLD, the liver stiffness thresholds for compensated advanced chronic liver disease may be lower. In causes other than viral hepatitis and NAFLD, liver stiffness thresholds are not well established.
== END 2024-04-22 08:08 | disposition home or self-care (01) ==
LOC: HO.US 08:07
PROVIDERS: PCP Internal Medicine; Visit Provider Internal Medicine Gastroenterology
DX: K75.81 Nonalcoholic steatohepatitis (NASH) (principal); K74.60 Unspecified cirrhosis of liver
CPT/HCPCS: 76705; 76981

== ENCOUNTER 2024-05-04 16:49 | Outpatient (AMB) | payer OTHER, SELFPAY ==
--- NOTE | 2024-05-04 16:59 | A.OFFPC_ITS ---
Vital Signs 05/04/24 17:00 Height 5 ft 4 in Weight 287 lb BMI 49.3 BP 118/70 Blood Pressure Location Lt brachial Position Sitting Intake Visit Reasons: knee pain/swelling Intake Note: Patient here c/o right leg pain and ankle pain Legal Nurse Consultant Required: No Accompanied by: Self / Same As Patient Allergies meat Allergy (Severe, Uncoded 05/04/24 17:20) Foot Ulcer percocet Allergy (Severe, Uncoded 05/04/24 17:20) Hives Medication List - Last Reconciled 05/04/24 by Aileen Isabel MD cetirizine 10 mg PO DAILY cholecalciferol (vitamin D3) 50 mcg PO DAILY diclofenac sodium 1% (Aleve (diclofenac)) 2 grams topical QID 30 days garlic 200 mg PO DAILY lhsqtqnf-axv-UC-lycopen-lutein 0.4 mg-300 mcg- 250 mcg (Centrum Silver) tabs PO oxybutynin chloride 10%(100mg/gram) (Gelnique) 1 g topical DAILY 30 days oxycodone 10 mg (2 x 5 mg) PO BID PRN 5 days pentoxifylline ER 400 mg PO TID yjkfavyh-mbog-qlhyl-oreg-capry 100 mg-150 mg- 50 mg-150 mg caps PO ubidecarenone-omega 3-vit E 25-150-200 mg-mg-unit (Co K-83-Wbjasrp E-Fish Oil) 1 cap PO DAILY vitamin B complex (B Complex-Vitamin B12 tablet) 1 tab PO DAILY vitamin E (dl, acetate) 180 mg PO DAILY Tobacco use date assessed: 01/28/24 Dental Screening Dental Screen Date: 01/28/24 HPI HPI Comments History of Present Illness Details This is a 49-year-old female morbid obesity, allergic rhinitis and low vitamin-D that comes today complaining of right knee pain that started few days ago. She was working in the backyard and started to be painful few days after. No previous trauma. She is morbidly obese and was advised to diet and exercise. Declines weight loss surgery. On vitamin-D supplements for her low vitamin-D. On antihistamines as needed for her allergies. [facility] Medical History (Updated 05/04/24 @ 19:12 by Aileen Isabel MD) Cough Allergic rhinitis Left hip pain Transaminitis Vitamin D deficiency Hirsutism Discomfort of left ear Morbid obesity VIRGILIO (obstructive sleep apnea) Hypoglycemia Toe pain, right Disc degeneration, lumbar Spondylosis of lumbosacral spine with radiculopathy Dizziness Obesity Arthritis Back pain Surgical History Hx of colonoscopy History of repair of ACL History of hysterectomy Family History Father History of kidney cancer Paternal Uncle Throat cancer Paternal Grandfather Heart disease Sister Psoriatic arthritis Mother Diabetes mellitus Other Family history of osteoarthritis Mental health disorder Social History Housing: House Alcohol intake: current Alcohol intake frequency: holidays/special occasions only Alcohol type: beer Patient Tobacco Use Status: Never used Tobacco e-Cigarette/Vaping Use: Never Used Second Hand Smoke Exposure: No service: No 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al status: employed 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al exposures/hazards: No Cognitive needs: No Hearing needs: No Vision needs: Yes Questionnaire Thrive Questionnaire Date Thrive assessed: 01/28/24 ASHER-7 AMB Questionnaire ASHER-7 Date ASHER - 7 assessed: 01/28/24 Source: Developed by Drs. Viktor Ching, Lola Martin, Rosas Yu and colleagues, with an educational harris from [employer] Review of Systems Const All systems reviewed & are unremarkable except as noted in HPI and below Card Denies chest pain at rest, Denies chest pain with activity, Denies edema, Denies irregular heart rhythm, Denies claudication, Denies dyspnea, Denies dyspnea on exertion, Denies orthopnea, Denies paroxysmal nocturnal dyspnea and Denies slow heart rate Resp Denies cough, Denies dyspnea and Denies dyspnea on exertion GI Denies abdominal pain, Denies change in bowel habits, Denies excessive flatus, Denies nausea and Denies vomiting Denies urinary incontinence, Denies urinary hesitancy and Denies urinary urgency Physical exam (Primary Care) Vital Signs: Last Vital Signs BP 118/70 05/04/24 17:00 BMI result Body Mass Index 49.3 Tobacco/Smoking Status: Tobacco use Status Tobacco use date assessed 01/28/24 05/04/24 17:04 Patient Tobacco Use Status Never used Tobacco 05/04/24 17:04 e-Cigarette/Vaping Use Never Used 05/04/24 17:04 Thrive Assessment: Date of Thrive Assessment Date Thrive assessed 01/28/24 05/04/24 17:04 Resp Effort & Inspection: normal respiratory effort Auscultation: clear to auscultation bilaterally Cardio Jugular venous distension: no JVD Rate: regular rate Rhythm: regular rhythm Heart sounds: S1 normal heart sound present and S2 normal heart sound present Extrem General: Yes full ROM Assessment and Plan Assessment & Plan (1) Right knee pain: Code(s): M25.561 - Pain in right knee Qualifiers: Chronicity: acute Qualified Code(s): M25.561 - Pain in right knee Plan: XR ordered. (2) Allergic rhinitis: Comment: PATIENT HAS HISTORY OF SEASONAL ALLERGIES. AT PRESENT HER SYMPTOMS ARE MINIMAL. Code(s): J30.9 - Allergic rhinitis, unspecified Qualifiers: Allergic rhinitis trigger: pollen Allergic rhinitis seasonality: seasonal Qualified Code(s): J30.1 - Allergic rhinitis due to pollen Plan: Continue cetirizine. (3) Vitamin D deficiency: Code(s): E55.9 - Vitamin D deficiency, unspecified Plan: Continue Vitamin D supplements. (4) Morbid obesity: Comment: PATIENT IS WELL AWARE OF THE FACT THAT SHE HAS MORBID OBESITY. AND SHE DOES HAVE INTENTION TO LOSE WEIGHT . Code(s): E66.01 - Morbid (severe) obesity due to excess calories Plan: Start diet and exercise. BMI goal is less than 30. Orders: Orders XR knee RT 1V Today M25.561 - Pain in right knee Coding Level of Care Code Est Pt Level 4 (11960) Complex EM visit Add On G2211 Diagnoses Acute pain of right knee M25.561 Chronicity: acute Seasonal allergic rhinitis due to pollen J30.1 Allergic rhinitis trigger: pollen Allergic rhinitis seasonality: seasonal Vitamin D deficiency E55.9 Morbid obesity E66.01 Time Spent (min) 23
[2024-05-04 17:00] VITALS: BP 118/70; BMI 49.3
== END 2024-05-04 17:27 | disposition home or self-care (01) ==
PROVIDERS: PCP Internal Medicine; Visit Provider Internal Medicine
DX: M25.561 Pain in right knee (principal); J30.1 Allergic rhinitis due to pollen; E55.9 Vitamin D deficiency, unspecified
CPT/HCPCS: 99214; G2211

== ENCOUNTER 2024-05-05 16:07 | Outpatient (REF) | payer OTHER, SELFPAY ==
--- NOTE | ~2024-05-05 | XR_ITS ---
EXAMINATION: XR KNEE, RIGHT CLINICAL INFORMATION: Pain in right knee. COMPARISON: January 20, 2023. TECHNIQUE: Two views of the right knee. FINDINGS: Redemonstration of evidence of previous ACL repair. Euorpvkh-qi-kryym joint effusion. Tiny tricompartmental spurs. Tricompartmental spaces are preserved. XR/XR knee RT 2V IMPRESSION: Owtkcded-ix-amqtq joint effusion. Tiny tricompartmental spurs.
== END 2024-05-05 16:08 | disposition home or self-care (01) ==
LOC: HO.XRAY 16:07
PROVIDERS: PCP Internal Medicine; Visit Provider Internal Medicine
DX: M25.561 Pain in right knee (principal)
CPT/HCPCS: 73560

== ENCOUNTER → 2024-06-07 | Outpatient (BNV) | payer BC, SELFPAY | PROVIDERS: PCP Internal Medicine; Visit Provider Internal Medicine | DX: Z01.818 Encounter for other preprocedural examination (principal) | CPT/HCPCS: 93010 ==

== ENCOUNTER 2024-06-14 12:19 | Outpatient (AMB) | payer BC, SELFPAY ==
--- NOTE | 2024-06-14 12:22 | AM.OFFWIN_ITS ---
Intake Vital Signs 06/14/24 12:25 Height 5 ft 4 in Weight 287 lb BMI 49.3 BP 120/72 Blood Pressure Location Rt brachial Position Sitting Pulse 83 Pulse Source Pulse Oximeter Temp 99.0 F Temp Source Oral Pulse Oximetry (%) 98 Oxygen Delivery Method Room Air Intake Visit Reasons: Headache, Sore throat Body aches Intake Note: pt is here for headache, sore throat, body ache Patient Tobacco Use Status: Never used Tobacco Allergies acetaminophen [From Percocet] Allergy (Severe, Verified 06/14/24 12:28) Hives-only in percocet form-? tylenol allergy oxycodone [From Percocet] Allergy (Severe, Verified 06/14/24 12:28) Hives-only in percocet form-? tylenol allergy meat Allergy (Severe, Uncoded 05/04/24 17:20) Foot Ulcer Do you need a note to return to daycare/school/sports/work: Yes HPI Headache, Sore throat Body aches HPI Details This note is constructed using voice recognition software. While every effort has been made to ensure accuracy, cuprous chloride operator errors may have been included. The patient is a 49 year old female who presents to the clinic today with body aches, sore throat, headache onset today. Denies fever, chills, cough, shortness for breath. Notes that she is having surgery of her back in 1 week, and is hopeful that she is not sick. She does work an [employer] and has had potential sick exposures. [facility] Medical History (Updated 06/07/24 @ 14:30 by Khadra Rosen RN) Fatty liver Allergic rhinitis Transaminitis Vitamin D deficiency Hirsutism Morbid obesity VIRGILIO (obstructive sleep apnea) Disc degeneration, lumbar Spondylosis of lumbosacral spine with radiculopathy Arthritis Back pain Surgical History (Updated 06/07/24 @ 14:31 by Khadra Rosen RN) Hx of colonoscopy History of repair of ACL History of hysterectomy Family History Father History of kidney cancer Paternal Uncle Throat cancer Paternal Grandfather Heart disease Sister Psoriatic arthritis Mother Diabetes mellitus Other Family history of osteoarthritis Mental health disorder Social History Housing: House Are you a primary resident caregiver to a significant other at home: No Do you presently have visiting nurse or other home services: No Alcohol intake: current Alcohol intake frequency: holidays/special occasions only Alcohol type: beer Comment: uses cane on occasion Patient Tobacco Use Status: Never used Tobacco e-Cigarette/Vaping Use: Never Used Second Hand Smoke Exposure: No service: No 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al status: employed 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al exposures/hazards: No Cognitive needs: No Hearing needs: No Vision needs: Yes Review of Systems Const All systems reviewed & are unremarkable except as noted in HPI and below Physical Exam Vital Signs: Last Vital Signs Temp 99.0 F 06/14/24 12:25 Pulse 83 06/14/24 12:25 BP 120/72 06/14/24 12:25 Pulse Ox 98 06/14/24 12:25 Oxygen Delivery Method Room Air 06/14/24 12:25 BMI result Body Mass Index 49.3 Const General: cooperative, healthy appearing, comfortable and no acute distress Orientation/consciousness: patient oriented x3 Limitations: no limitations HEENT Head: Yes normal to inspection Ears: hearing grossly normal bilaterally, external ears normal and TM's normal bilaterally General nose exam: Normal external nose present, Normal nares present and No nasal discharge present Face and sinus: Yes normal facial exam and Yes sinuses nontender Mouth: Normal oral and palatal mucosa present and moist mucous membranes Throat: Yes tonsils normal, Yes uvula midline and Yes posterior oropharynx abnormal (Erythema) Eyes General: appearance normal, both eyes and all related structures Neck Neck: Yes normal visual inspection Resp Effort & Inspection: normal respiratory effort, able to speak in complete sentences, Actively coughing, no respiratory distress, not tachypneic, no tripod positioning and no use of accessory muscles Auscultation: clear to auscultation bilaterally Cardio Jugular venous distension: no JVD Rate: regular rate Rhythm: regular rhythm Heart sounds: S1 normal heart sound present, S2 normal heart sound present, no click, no gallops, no murmurs and no rubs Skin General skin exam: no rashes or lesions noted, elasticity normal and turgor normal Neuro General: patient oriented x3 Extrem General: Yes normal to inspection and Yes no clubbing, cyanosis or edema Assessment & Plan Assessment & Plan (1) Acute upper respiratory infection, unspecified: Code(s): J06.9 - Acute upper respiratory infection, unspecified Plan: Supportive measures encouraged and reviewed including hydration humidification. Advised patient in quarantine measures per CDC guidelines. Viral testing by swab obtained today for COVID and flu. Patient would be interested in antiviral therapy should either test come back positive. Advised follow up with worsening symptoms including dyspnea at rest, or failure to resolve. Plan See above for full details and plan. Orders: Orders SARS-CoV2/FLU/RSV Today J06.9 - Acute upper respiratory infection, unspecified Coding Level of Care Code Est Pt Level 3 (67709) Diagnoses Acute upper respiratory infection, unspecified J06.9
[2024-06-14 12:25] VITALS: BP 120/72; PULSE 83; TEMP 37.2; O2SAT 98; BMI 49.3
== END 2024-06-14 12:50 | disposition home or self-care (01) ==
PROVIDERS: PCP Internal Medicine; Visit Provider Registered Nurse
DX: J06.9 Acute upper respiratory infection, unspecified (principal)
CPT/HCPCS: 87880; 99213

== ENCOUNTER 2024-06-14 12:47 | Outpatient (REF) | payer BC, SELFPAY ==
[2024-06-14 20:10] LABS: Influenza A PCR NEGATIVE (Negative); Influenza B PCR NEGATIVE (Negative); Resp Syncy Virus RNA Qual PCR NEGATIVE (Negative); SARS COV2 PCR INHOUSE POSITIVE (Negative)
== END 2024-06-14 12:48 | disposition home or self-care (01) ==
LOC: HO.LNP 12:47
PROVIDERS: Visit Provider Registered Nurse
DX: J06.9 Acute upper respiratory infection, unspecified (principal)
CPT/HCPCS: 0241U

== ENCOUNTER 2024-06-30 07:32 | Day surgery (SDC) | payer BC, SELFPAY ==
--- NOTE | 2024-06-07 | ECG_ITS ---
Test Reason : pre op Blood Pressure : / mmHG Vent. Rate : 065 BPM Atrial Rate : 065 BPM P-R Int : 134 ms QRS Dur : 084 ms QT Int : 414 ms P-R-T Axes : 025 078 051 degrees QTc Int : 430 ms Normal sinus rhythm Normal ECG No previous ECGs available Referred By: Viri Santiago Electronically Signed By:CRISTIANE MALIK
[2024-06-07 14:36] VITALS: BMI 48.1
--- NOTE | 2024-06-29 10:11 | P.CONAN_ITS ---
Documented by User: Viri Santiago NP 06/29/24 10:14 HPI - Anesthesia Eval Consult details Narrative: 49yo F for Left L5 Laminotomy COVID + on 06/21/24 BMI = 48 PMFSH Active Problems Active Problems: All Active Problems Medial ankle sprain (Acute) Hypoglycemia (Acute) Abdominal pain (Acute) Lumbar spondylosis (Acute) Right hand pain (Acute) Left hand pain (Acute) Right elbow pain (Acute) Left elbow pain (Acute) Lumbar pain (Acute) Blood glucose abnormal (Acute) Overactive bladder (Acute) Full thickness rotator cuff tear (Acute) Partial tear of right rotator cuff (Acute) Immunization due (Acute) Tendinitis of right rotator cuff (Acute) Right leg pain (Acute) Left wrist pain (Acute) Right knee pain (Acute) Foot pain (Acute) Polyarthralgia (Acute) Viral bronchitis (Acute) Physical exam (Acute) Fatigue (Acute) Left ankle tendinitis (Acute) Cough (Acute) Allergies (Acute) Sinusitis, acute frontal (Acute) Nasal congestion (Acute) Left hip pain (Acute) Bilateral hand pain (Acute) Numbness and tingling in both hands (Acute) Trigger finger of left thumb (Acute) Discomfort of left ear (Acute) Carpal tunnel syndrome (Acute) Ankle injury (Acute) Hypoglycemia (Acute) Toe pain, right (Acute) Dizziness (Acute) Elevated blood pressure reading (Acute) Obesity (Acute) Pre-employment health screening examination (Acute) Allergic rhinitis (Acute) Back pain (Acute) Transaminitis (Acute) Vitamin D deficiency (Acute) Hirsutism (Acute) Morbid obesity (Acute) VIRGILIO (obstructive sleep apnea) (Acute) Disc degeneration, lumbar (Acute) Spondylosis of lumbosacral spine with radiculopathy (Acute) Past Medical History Medical History Fatty liver Allergic rhinitis Transaminitis Vitamin D deficiency Hirsutism Morbid obesity VIRGILIO (obstructive sleep apnea) Disc degeneration, lumbar Spondylosis of lumbosacral spine with radiculopathy Arthritis Back pain Family History Family History Father History of kidney cancer Paternal Uncle Throat cancer Paternal Grandfather Heart disease Sister Psoriatic arthritis Mother Diabetes mellitus Other Family history of osteoarthritis Mental health disorder Surgical History Surgical History Hx of colonoscopy History of repair of ACL History of hysterectomy History of Problems with Anesthesia: No Social History Social History Housing: House Are you a primary anesthesiologist and critical care to a significant other at home: No Do you presently have visiting nurse or other home services: No Alcohol intake: current Alcohol intake frequency: holidays/special occasions only Alcohol type: beer Comment: uses cane on occasion Patient Tobacco Use Status: Never used Tobacco e-Cigarette/Vaping Use: Never Used Second Hand Smoke Exposure: No Use of substances other than those prescribed or required for medical reasons: No Have you been hit, kicked, punched, or otherwise hurt by someone within the past year? If so, by whom?: No Are you DNR?: No Advance Directives: No ( is primary contact) Advance Directives Information Provided: Yes (as above noted) Advance Directives on File: No Recently lost weight without trying: No Eating poorly because of decreased appetite: No Nutrition Risks: No Nutritional Risk Patient : No (had hysterectomy age 38) Poor oral hygiene: No (one missing tooth lower left molar) service: No 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al status: employed 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al exposures/hazards: No Cognitive needs: No Hearing needs: No Vision needs: Yes Meds Allergies Allergy/AdvReac Type Severity Reaction Status Date / Time acetaminophen [From Percocet] Allergy Severe Hives-only Verified 06/30/24 08:35 in percocet form-? tylenol allergy oxycodone [From Percocet] Allergy Severe Hives-only Verified 06/30/24 08:35 in percocet form-? tylenol allergy meat Allergy Severe Foot Ulcer Uncoded 06/30/24 08:00 Home Medications ?Medication ?Instructions ?Recorded ?Confirmed ?Last Taken ?Type vdhisyvi-ewa-boaxb acid 0.4 1 tab PO QAM 03/31/22 06/07/24 05/08/24 History mg-lycopene 300 mcg-lutein 250 mcg tablet (Centrum Silver) turmeric 100 mg-susanna 150 1 cap PO QAM 03/31/22 06/07/24 05/08/24 History mg-olive 50 mg-oreg 150 mg-capryl capsule ubidecarenone-omega 3-vit E 25 1 cap PO QAM 03/31/22 06/07/24 05/08/24 History mg-150 (90-60) mg-200 unit capsule (Co K-89-Tznjwuk E-Fish Oil) vitamin B complex (B 1 tab PO DAILY 03/31/22 06/07/24 05/08/24 History Complex-Vitamin B12 tablet) garlic 200 mg tablet 200 mg PO QAM 12/27/22 06/07/24 05/08/24 History cetirizine 10 mg tablet 10 mg PO DAILY PRN Allergy Symptoms 06/11/23 06/07/24 Unknown History cholecalciferol (vitamin D3) 50 50 mcg PO QAM 06/07/24 06/07/24 Unknown History mcg (2,000 unit) capsule diclofenac sodium 1 % topical gel 2 g topical QID PRN Pain 06/07/24 06/07/24 Unknown History (Aleve (diclofenac)) oxybutynin chloride 10 % (100 1 g topical DAILY 06/07/24 06/07/24 Unknown History mg/gram) transdermal gel packet (Gelnique) vitamin E (dl, acetate) 180 mg 180 mg PO QAM 06/07/24 06/07/24 05/08/24 History (400 unit) capsule Exam Height,Weight and Vital Signs: Height 5 ft 4 in Weight 127.006 kg Pertinent Lab Results Pertinent Lab Results: Laboratory Tests 03/09/24 15:49 WBC 5.3 Hgb 14.3 Hct 44.0 Plt Count 216 Sodium 142 Potassium 4.4 Chloride 106 Carbon Dioxide 26 BUN 14 Creatinine 0.80 Narrative Narrative: EKG 05/2024 Vent. Rate : 065 BPM Atrial Rate : 065 BPM P-R Int : 134 ms QRS Dur : 084 ms QT Int : 414 ms P-R-T Axes : 025 078 051 degrees QTc Int : 430 ms Normal sinus rhythm Normal ECG No previous ECGs available Assessment and Plan Assessment Anesthesia Assessment: Chart Reviewed Final Anesthetic Review History of Problems with Anesthesia: No Documented by User: Lay Winters MD 06/30/24 09:26 [facility] Past Medical History Medical History Fatty liver Allergic rhinitis Transaminitis Vitamin D deficiency Hirsutism Morbid obesity VIRGILIO (obstructive sleep apnea) Disc degeneration, lumbar Spondylosis of lumbosacral spine with radiculopathy Arthritis Back pain Family History Family History Father History of kidney cancer Paternal Uncle Throat cancer Paternal Grandfather Heart disease Sister Psoriatic arthritis Mother Diabetes mellitus Other Family history of osteoarthritis Mental health disorder Surgical History Surgical History (Reviewed 06/30/24 @ : by Lay Winters MD) Hx of colonoscopy History of repair of ACL History of hysterectomy Social History Social History Housing: House Are you a primary anesthesiologist and critical care to a significant other at home: No Do you presently have visiting nurse or other home services: No Alcohol intake: current Alcohol intake frequency: holidays/special occasions only Alcohol type: beer Comment: uses cane on occasion Patient Tobacco Use Status: Never used Tobacco e-Cigarette/Vaping Use: Never Used Second Hand Smoke Exposure: No Use of substances other than those prescribed or required for medical reasons: No Have you been hit, kicked, punched, or otherwise hurt by someone within the past year? If so, by whom?: No Are you DNR?: No Advance Directives: No ( is primary contact) Advance Directives Information Provided: Yes (as above noted) Advance Directives on File: No Recently lost weight without trying: No Eating poorly because of decreased appetite: No Nutrition Risks: No Nutritional Risk Patient : No (had hysterectomy age 38) Poor oral hygiene: No (one missing tooth lower left molar) service: No 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al status: employed 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al exposures/hazards: No Cognitive needs: No Hearing needs: No Vision needs: Yes Meds Allergies Allergy/AdvReac Type Severity Reaction Status Date / Time acetaminophen [From Percocet] Allergy Severe Hives-only Verified 06/30/24 08:35 in percocet form-? tylenol allergy oxycodone [From Percocet] Allergy Severe Hives-only Verified 06/30/24 08:35 in percocet form-? tylenol allergy meat Allergy Severe Foot Ulcer Uncoded 06/30/24 08:00 Home Medications ?Medication ?Instructions ?Recorded ?Confirmed ?Last Taken ?Type exrgzhfm-rjt-sdpxo acid 0.4 1 tab PO QAM 03/31/22 06/07/24 05/08/24 History mg-lycopene 300 mcg-lutein 250 mcg tablet (Centrum Silver) turmeric 100 mg-susanna 150 1 cap PO QAM 03/31/22 06/07/24 05/08/24 History mg-olive 50 mg-oreg 150 mg-capryl capsule ubidecarenone-omega 3-vit E 25 1 cap PO QAM 03/31/22 06/07/24 05/08/24 History mg-150 (90-60) mg-200 unit capsule (Co N-02-Bkkneaj E-Fish Oil) vitamin B complex (B 1 tab PO DAILY 03/31/22 06/07/24 05/08/24 History Complex-Vitamin B12 tablet) garlic 200 mg tablet 200 mg PO QAM 12/27/22 06/07/24 05/08/24 History cetirizine 10 mg tablet 10 mg PO DAILY PRN Allergy Symptoms 06/11/23 06/07/24 Unknown History cholecalciferol (vitamin D3) 50 50 mcg PO QAM 06/07/24 06/07/24 Unknown History mcg (2,000 unit) capsule diclofenac sodium 1 % topical gel 2 g topical QID PRN Pain 06/07/24 06/07/24 Unknown History (Aleve (diclofenac)) oxybutynin chloride 10 % (100 1 g topical DAILY 06/07/24 06/07/24 Unknown History mg/gram) transdermal gel packet (Gelnique) vitamin E (dl, acetate) 180 mg 180 mg PO QAM 06/07/24 06/07/24 05/08/24 History (400 unit) capsule Exam Airway Mallampati Class: III TM Dist: >3cm Neck ROM: Full Loose/Missing/Broken Teeth: No Heart: RRR Lungs: CTA Assessment and Plan Assessment Anesthesia Assessment: Anesthesia Plan Discussed Final Anesthetic Review NPO: Yes ASA Class: III Final Preanesthetic Review: Meds/Allgs Chart Reviewed, Consent Obtained/Reviewed and Anes Risks/Benef Reviewed Patient Risk: Intermediate Procedure Risk: Intermediate Anesthetic Plan Anesthetic Plan: GA Disposition: Standard PACU
[2024-06-30] VITALS (12 sets, daily range): BP systolic 105–142; BP diastolic 59–80; PULSE 69–89; RESP 12–16; TEMP 35.9–36.2; O2SAT 96–100; BMI 47.4
--- NOTE | 2024-06-30 07:36 | P.DS_ITS ---
DS: Providers Provider Date of Service: 06/30/24 Date of discharge: 06/30/24 Primary care physician: Aileen Isabel MD Admitting clinician: Christopher Taveras DS: Diagnosis Discharge Diagnosis (1) Lumbar spondylosis: Status: Acute DS: Summary Time Attestation Discharge Coordination Time (in mins): 5 Quality: Safe Use of Opioids Does Pt have an Active Cancer Diagnosis on the Problem List?: No Quality: Stroke Does the patient have a stroke diagnosis?: No Physical Exam Vital Signs: Vital Signs: BMI result Body Mass Index 48.1 Discharge Plan Discharge Patient Disposition: Home, Self-Care Referrals: Aileen Llanes MD [Primary Care Provider] - 1 Week Discharge Medications: New docusate sodium [Colace] 100 mg capsule 100 mg PO BID Qty: 20 0RF oxycodone 5 mg tablet 5 mg PO Q4H PRN (Reason: pain) Qty: 20 0RF Rx Instructions: Partial Fill upon patient request. Continued oxycodone 5 mg tablet 10 mg PO BID PRN (Reason: pain) 5 Days Qty: 20 0RF Rx Instructions: Partial Fill upon patient request. Paxlovid 300 mg (150 mg x 2)-100 mg tablets,dose pack See Rx Instructions PO .COMPLEX Qty: 30 0RF Rx Instructions: take TWO 150 mg tablets of nirmatrelvir with ONE 100 mg tablet of ritonavir twice daily for 5 days PO. diclofenac sodium [Aleve (diclofenac)] 1 % gel 2 g topical QID PRN (Reason: Pain) Rx Instructions: apply to single elbow, wrist or hand; for hand includes palm/fingers/back of hand cholecalciferol (vitamin D3) 50 mcg (2,000 unit) capsule 50 mcg PO QAM vitamin E (dl, acetate) 180 mg (400 unit) capsule 180 mg PO QAM Gelnique 10 % (100 mg/gram) gel in packet 1 g topical DAILY garlic 200 mg tablet 200 mg PO QAM Centrum Silver 0.4 mg-300 mcg- 250 mcg tablet 1 tab PO QAM vitamin B complex [B Complex-Vitamin B12] Tablet 1 tab PO DAILY Co X-81-Jmowhpl E-Fish Oil 25-150-200 mg-mg-unit capsule 1 cap PO QAM vuwpiuis-chvu-depib-oreg-capry 100 mg-150 mg- 50 mg-150 mg capsule 1 cap PO QAM cetirizine 10 mg tablet 10 mg PO DAILY PRN (Reason: Allergy Symptoms) pentoxifylline 400 mg tablet extended release 400 mg PO TID Qty: 90 3RF Rx Instructions: must administer with a meal/food Discharge Orders: Discharge Order (Routine); Ordered 06/30/24 Ordered By: Jeb Elizalde Diet: Advance to usual diet Activity on Discharge: As tolerated Activity Restrictions/Additional Instructions: After your spinal surgery we ask you to observe the following restriction s/guidelines: Activity: It is normal to feel some discomfort as you increase your activity, but that will improve with time. We ask you avoid heavy lifting or acitivities that cause pain. As a general rule, 8lbs is a safe limit for lifting right after surgery. Walk as much as you feel comfortable but not to exhaustion. You will feel extra tired the first few days after surgery. Stay well hydrated. It is OK to walk up and down stairs You may return to driving when you are off narcotics (such as vicodin, oxycodone, dilaudid, etc), and you are back to normal functional capacity. If you have any concerns please check with office before driving. Return to work is specific to each patient and each surgery, so please speak with your doctor/PA at first follow up. Please bring paperwork such as FMLA at that time if you need it filled out. Medications: For optimum pain control, it is best to start with a combination of 500 mg of Tylenol every 4 hours with 600 mg of Motrin every 8 hours, and use narcotics as needed in between for breakthrough pain. We will give you a short supply of narcotics after surgery (usually one weeks worth). If you need more please call the office but do not use more than prescribed. You will need to give our office 48 hours notice if you need narcotics refilled and we do not fill narcotics on weekends or evenings. If you are on a narcotic, it is a good idea to take a stool softener such as colace or senna to avoid constipation If you take blood thinner such as aspirin, Plavix, Coumadin, Effient, Eliquis etc for conditions such as Afib, DVT, Pulmonary embolus, coronary disease, stents etc please speak with your surgeon about specific details as to when you can resume these medications. You can resume NSAIDs on post op day 1 (eg: Motrin, Naproxen, etc). Follow up: Please call the office, , after surgery to arrange a 3 week follow up for wound check. Wound Care: You may remove your dressing on the first day after surgery. ?You may ?leave open to air. Please do not remove the steri strips underneath. they will fall off on their own in one week. IT IS NORMAL FOR THE WOUND TO OOZE OR BE BLOODY FOR A FEW DAYS AFTER SURGERY. ?IF THIS HAPPENS JUST PLACE NEW DRESSING OVER IT TO AVOID STAINING CLOTHES. You may shower on post op day # 1 We ask that you do not let the water soak the wound. If it does get wet, just towel dry lightly. Please do not scrub your incision or place any type of chemical/ointment on the wound. No tub baths, pools or jacuzzis for one month. If you have any leaking or redness from your wound, or fevers, please call office Print Language: Jamaican
--- NOTE | 2024-06-30 07:44 | MHC.SHP ---
Pre-Procedural Eval Section A - 24 Hr Update-Section A only Date of Service: 06/30/24 The patient is an INPATIENT: No Changes since office visit: No Cold of Flu in the past 2 weeks, No New Medical Problems, No Changes in Medication and No Patient answered all questions The patient has been examined within 24 hours of the surgical procedure. The History & Physical has been completed within 30 days and I have reviewed it.: No Section B - Complete if H&P > 30 days Chief Complaint: Spondylosis without myelopathy or radiculopathy, Allergies: Allergies Allergy/AdvReac Type Severity Reaction Status Date / Time acetaminophen [From Percocet] Allergy Severe Hives-only Verified 06/14/24 12:28 in percocet form-? tylenol allergy oxycodone [From Percocet] Allergy Severe Hives-only Verified 06/14/24 12:28 in percocet form-? tylenol allergy meat Allergy Severe Foot Ulcer Uncoded 05/04/24 17:20 Review of Systems Sugical H&P ROS: Negative: Constitution, Cardiovascular, Respiratory, Neurological, Psychiatric, Hem-Onc, Allergic/Immunologic, Gastrointestinal, Genitourinary, Musculoskeletal, Integumentary, Endocrine and Eyes/Ears/Nose/Throat Exam Surgical H&P Exam: Normal: HEENT, Normal: Heart, Normal: Lungs, Normal: Extremities, Normal: Abdomen, Normal: Skin and Normal: Neurological (Awake alert oriented x3) Plan Diagnosis/Plan: Unchanged Left L5 laminotomy Time Spent With Patient Time: Total time managing care of this patient today __ 5 __ minutes.
[2024-06-30] MEDS: Gabapentin 300 MG CAPSULE PO (08:06)
[2024-06-30] MEDS: methocarbamoL 750 MG TABLET PO (08:07)
[2024-06-30] MEDS: Lactated Ringers 1,000 ML 100 ML IVCONT (08:28)
--- NOTE | 2024-06-30 12:04 | W.PM.OPN ---
Operative Note Operative Note Date of Service: 06/30/24 Narrative: Preoperative Diagnosis: Left L4-5 spinal stenosis/lateral recess stenosis/neural foraminal stenosis Operation: Left L4-5 Laminotomy, Partial facetectomy and foraminotomy with use of microscope Consent Informed Consent was obtained for this operation. I have explained the nature, purpose and benefits of the operation. I have discussed the risks and benefit of the operation including possible complications or adverse events with patient/family. Alternative(s) were discussed with the patient with their relative benefits and risks as well as the consequences of not accepting the operation were included in obtaining consent. Surgeon: KAMARI VELASQUEZ MD, PHD Procedure Assisted By: Jeb Molina Description of Procedure This left lumbar radiculopathy due to L4-5 lateral recess stenosis.. The patient was offered a decompression. The procedure complications were explained. The patient was consented. The patient was brought to the operating room and endotracheally intubated. The patient was turned in prone position on the Aurelio frame. Prep and drape was done followed by timeout. The Physician child development assistant provided access. A mid lumbar incision was made followed by release of the paravertebral muscle on the left side to expose the L4-5 lamina and facet joints. An intraoperative x-ray was obtained to confirm the correct level. The microscope was brought in. I took over the procedure. The high-speed drill was used to do a left L4-5 laminotomy until flavum ligament was reached. A #2 Kerrison was used to expand the laminotomy near flush to the pedicles and to include a partial facetectomy. The flavum ligament was opened and resected with a #3 Kerrison to decompress the underlying thecal sac. The flavum ligament was removed to decompress the lateral recess and the exiting L5 nerve root. A long nerve hook could be easily passed along the medial side of the pedicles as a sign of adequate decompression. The microscope was removed. Hemostasis was done. The physician child development assistant close the Incision in 2 layers. Steri-Strips were used to approximate incision. An OpSite with Tegaderm was used to cover the incision. All sponge needle counts were correct. Patient was extubated and transported in stable is to recovery room. Anesthesia: General Estimated Blood Loss (ml): 30 Complications: None Duration of Surgery: Under 60 Minutes Postoperative Plan: Discharge to home
[2024-06-30] MEDS: fentaNYL citrate/PF 100 MCG/2 ML VIAL 25 MCG IVPUSH ×2 (12:29→12:35)
[2024-06-30] MEDS: oxyCODONE HCl Immed Release 5 MG TABLET PO (12:40)
== END 2024-06-30 13:16 | disposition home or self-care (01) ==
PROVIDERS: PCP Internal Medicine; Visit Provider Neurological Surgery
PROC: (CPT 63047; principal; 2024-06-30 10:00)
DX: M48.061 Spinal stenosis, lumbar region without neurogenic claudication (principal); M47.816 Spondylosis without myelopathy or radiculopathy, lumbar region; E66.9 Obesity, unspecified; Z68.42 Body mass index [BMI] 45.0-49.9, adult; G47.33 Obstructive sleep apnea (adult) (pediatric); Z88.5 Allergy status to narcotic agent
CPT/HCPCS: 63047; 93005; J0131; J0690; J1100; J1885; J2250; J2405; J2704; J3010

== ENCOUNTER → 2024-06-30 07:32 | Outpatient (BNV) | payer BC, SELFPAY | PROVIDERS: PCP Internal Medicine; Visit Provider Physician Assistant | DX: M48.062 Spinal stenosis, lumbar region with neurogenic claudication (principal) | CPT/HCPCS: 63047; 99499 ==

== ENCOUNTER 2024-07-21 09:07 | Outpatient (AMB) | payer BC, SELFPAY ==
--- NOTE | 2024-07-21 09:18 | A.SPINEOV_ITS ---
Intake Visit Reasons: 1st post op Intake Note: Ms. Kulwinder Gutierrez is here today for her 1st post-op visit. Service Now Developer Required: No Allergies acetaminophen [From Percocet] Allergy (Severe, Verified 07/21/24 09:18) Hives-only in percocet form-? tylenol allergy oxycodone [From Percocet] Allergy (Severe, Verified 07/21/24 09:18) Hives-only in percocet form-? tylenol allergy meat Allergy (Severe, Uncoded 06/30/24 08:00) Foot Ulcer Assessment & Plan Assessment & Plan (1) Status post lumbar spine surgery for decompression of spinal cord: Code(s): Z98.890 - Other specified postprocedural states Category: Medical Plan Procedure: Left L4-5 Laminotomy, Partial facetectomy and foraminotomy Loly comes in today for her 1st postoperative visit. She reports she is very satisfied with the surgery and feels much better than she did preoperatively. The patient reports she is up walking around and completing the majority of her ADLs. She reports that she no longer suffers from her left-sided shooting radiculopathy. She still reports mild low back incision site pain, with good relief with occasional use of pain medication. 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 I encouraged her to drop off the necessary paperwork to go back part-time if needed. No new neurological deficits. Patient is able to ambulate well, rises from a seated position without difficulty. Incision site is closed, well healing, with no signs of drainage. We will follow-up with the patient in 6 weeks for their 2nd postoperative visit. Damon Taveras MD,PhD [facility] Coding Level of Care Code Global (26440) Diagnoses Status post lumbar spine surgery for decompression of spinal cord Z98.890
== END 2024-07-21 09:52 | disposition home or self-care (01) ==
PROVIDERS: PCP Internal Medicine; Visit Provider Physician Assistant
DX: Z98.890 Other specified postprocedural states (principal)
CPT/HCPCS: 99024

== ENCOUNTER → 2024-07-21 09:07 | Outpatient (BNVA) | payer BC, SELFPAY | PROVIDERS: PCP Internal Medicine; Visit Provider Physician Assistant ==

== ENCOUNTER 2024-08-25 15:59 | Outpatient (AMB) | payer BC, SELFPAY ==
--- NOTE | 2024-08-25 16:00 | A.OFFVIS_ITS ---
Intake Visit Reasons: Obstructive sleep apnea Intake Note: pt is on the phone for lucien follow and doing well Allergies acetaminophen [From Percocet] Allergy (Severe, Verified 08/25/24 16:30) Hives-only in percocet form-? tylenol allergy oxycodone [From Percocet] Allergy (Severe, Verified 08/25/24 16:30) Hives-only in percocet form-? tylenol allergy meat Allergy (Severe, Uncoded 08/25/24 16:30) Foot Ulcer Medication List - Last Reconciled 08/25/24 by Noé Blankenship MD cetirizine 10 mg PO DAILY PRN cholecalciferol (vitamin D3) 50 mcg PO QAM diclofenac sodium 1% (Aleve (diclofenac)) 2 grams topical QID PRN docusate sodium (Colace) 100 mg PO BID garlic 200 mg PO QAM ppsgxylz-jqm-PH-lycopen-lutein 0.4 mg-300 mcg- 250 mcg (Centrum Silver) 1 tab PO QAM nirmatrelvir-ritonavir 300 mg (150 mg x 2)-100 mg (Paxlovid) take TWO 150 mg tablets of nirmatrelvir with ONE 100 mg tablet of ritonavir twice daily for 5 days PO. oxybutynin chloride 10%(100mg/gram) (Gelnique) 1 g topical DAILY oxycodone 10 mg (2 x 5 mg) PO BID PRN 5 days oxycodone 5 mg PO Q6-8H PRN pentoxifylline ER 400 mg PO TID vlrbmnat-uvlw-tqvts-oreg-capry 100 mg-150 mg- 50 mg-150 mg 1 cap PO QAM ubidecarenone-omega 3-vit E 25-150-200 mg-mg-unit (Co N-31-Jpehsxv E-Fish Oil) 1 cap PO QAM vitamin B complex (B Complex-Vitamin B12 tablet) 1 tab PO DAILY vitamin E (dl, acetate) 180 mg PO QAM Do you need a note to return to daycare/school/sports/work: No HPI HPI Obstructive sleep apnea: Details: THIS WAS A TELE VISIT PATIENT WAS NOT ABLE TO COME TO THE OFFICE TODAY. SHE IS A KNOWN CASE OF OBSTRUCTIVE SLEEP APNEA DUE TO GROSS OBESITY, SHE IS USING CPAP WITH GREAT IMPROVEMENT IN SLEEP. WE HAD A DETAILED CONVERSATION OVER THE TELEPHONE. SHE CLAIMS THAT SHE USES CPAP EVERY NIGHT MORE THAN 8 HOURS PER NIGHT. SHE CLAIMS THAT SHE SLEEPS VERY GOOD AND WAKES UP REFRESHED. SHE HAS NO ISSUE WITH THE MASK OR CPAP MACHINE. SHE DENIES ANY DAYTIME SLEEPINESS. WEIGHT HAS NOT CHANGED. SHE IS NOT IN ANY EXERCISE PROGRAM, BUT SHE DOES SHOW INTENTION OF JOINING . WEIGHT MANAGEMENT PROGRAM SHE HAS SYMPTOMS OF THE ALLERGIC RHINITIS WHICH FLARES UP EVERY NOW AND THEN. SHE USES CETIRIZINE 10 MG ONCE A DAY OFF AND ON. [facility]LY [facility] Medical History Fatty liver Allergic rhinitis Transaminitis Vitamin D deficiency Hirsutism Morbid obesity LUCIEN (obstructive sleep apnea) Disc degeneration, lumbar Spondylosis of lumbosacral spine with radiculopathy Arthritis Back pain Surgical History Hx of colonoscopy History of repair of ACL History of hysterectomy Family History Father History of kidney cancer Paternal Uncle Throat cancer Paternal Grandfather Heart disease Sister Psoriatic arthritis Mother Diabetes mellitus Other Family history of osteoarthritis Mental health disorder Social History Housing: House Are you a primary home health care provider to a significant other at home: No Do you presently have visiting nurse or other home services: No Alcohol intake: current Alcohol intake frequency: holidays/special occasions only Alcohol type: beer Comment: uses cane on occasion Patient Tobacco Use Status: Never used Tobacco e-Cigarette/Vaping Use: Never Used Second Hand Smoke Exposure: No service: No 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al status: employed 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al exposures/hazards: No Cognitive needs: No Hearing needs: No Vision needs: Yes Review of Systems Const All systems reviewed & are unremarkable except as noted in HPI and below Denies snoring Eyes Reports no additional complaints ENT Reports no additional complaints Card Denies chest pain, Denies irregular heart rhythm and Denies leg edema Resp Reports no additional complaints, Denies cough, Denies snoring and Denies wheezing GI Reports no additional complaints Reports no additional complaints Musc Reports back pain Skin/Breast Reports system reviewed and no additional complaints, except as documented Neuro Reports no additional complaints Psych Reports no additional complaints Aller/Immun Denies wheezing Physical Exam TELE VISIT SO NO PHYSICAL EXAMINATION. PATIENT STATES THAT HER WEIGHT IS 280 LB, NOT MUCH CHANGE FROM BEFORE. Telehealth Telehealth Telehealth Platform: Telephone Location of provider rendering services: practice address Location of patient: address on file Patient Identification confirmed using: Name, : Yes Telehealth method: voice only Patient verbally consented to treatment: Yes Patient verbally consented to billing insurance company: Yes Patient informed of any privacy concerns related to visit: Yes Minutes spent on Phone/Video with Pt.: 20 Results Reviewed Results Reviewed: COMPLIANCE REPORT FOR THE LAST 30 NIGHTS REVIEWED AND DISCUSSED WITH THE PATIENT. SHE HAS USED / NIGHTS, FORGOT TO PUT ON THE MASK 2 NIGHTS, HOWEVER SHE TRIES TO PUT IT ON REGULARLY SHE DOES NOT SLEEP WELL WITHOUT. THE CPAP MASK AVERAGE USE IT PER NIGHT. 8 HOURS 45 MINUTES RESIDUAL AHI ONLY 1 Assessment & Plan Assessment & Plan (1) Morbid obesity: Comment: PATIENT IS WELL AWARE OF THE FACT THAT SHE HAS MORBID OBESITY. AND SHE DOES HAVE INTENTION TO LOSE WEIGHT , HOWEVER SHE HAS NOT SUCCEEDED SO FAR. Code(s): E66.01 - Morbid (severe) obesity due to excess calories Category: Medical Plan: I STRESS THAT SHE SHOULD JOIN A WEIGHT MANAGEMENT PROGRAM, AND IT IS IMPORTANT FOR HER TO LOSE WEIGHT. (2) LUCIEN (obstructive sleep apnea): Comment: SEVERE OBSTRUCTIVE SLEEP APNEA WITH TOTAL SLEEP TIME AHI 30. ON CPAP THERAPY, NASAL PILLOWS ,A PAP MODE PRESSURE SETTING 6-20 CM. VERY HAPPY AND 100% COMPLIANT. NO ISSUES WITH THE MASK OR CPAP MACHINE. Code(s): G47.33 - Obstructive sleep apnea (adult) (pediatric) Category: Medical Plan: ADVISE THAT SHE SHOULD KEEP ON USING CPAP EVERY NIGHT SHE IS DOING NOW. (3) Allergic rhinitis: Comment: PATIENT HAS HISTORY OF SEASONAL ALLERGIES. AT PRESENT HER SYMPTOMS ARE MINIMAL. Code(s): J30.9 - Allergic rhinitis, unspecified Category: Medical Qualifiers: Allergic rhinitis trigger: pollen Allergic rhinitis seasonality: seasonal Qualified Code(s): J30.1 - Allergic rhinitis due to pollen Plan: OK TO USE CETIRIZINE 10 MG ONCE A DAY P.R.N. Coding Level of Care Code Tele Est Pt Level 3 (77973) Diagnoses Morbid obesity E66.01 LUCIEN (obstructive sleep apnea) G47.33 Seasonal allergic rhinitis due to pollen J30.1 Allergic rhinitis trigger: pollen Allergic rhinitis seasonality: seasonal
== END 2024-08-25 16:07 | disposition home or self-care (01) ==
LOC: HO.HPS 15:59
PROVIDERS: PCP Internal Medicine; Referring Provider Internal Medicine; Visit Provider Internal Medicine
DX: E66.01 Morbid (severe) obesity due to excess calories (principal); G47.33 Obstructive sleep apnea (adult) (pediatric); J30.1 Allergic rhinitis due to pollen
CPT/HCPCS: 99213

== ENCOUNTER → 2024-08-25 15:59 | Outpatient (BNVA) | payer BC, SELFPAY | PROVIDERS: PCP Internal Medicine; Visit Provider Internal Medicine ==

== ENCOUNTER 2024-09-02 15:23 | Outpatient (AMB) | payer BC, SELFPAY ==
--- NOTE | 2024-09-02 15:26 | A.SPINEOV_ITS ---
Intake Visit Reasons: 2nd post op Intake Note: Ms. Kulwinder Gutierrez is here for her 2nd post-op appointment. Product Representative Required: No Allergies acetaminophen [From Percocet] Allergy (Severe, Verified 08/25/24 16:30) Hives-only in percocet form-? tylenol allergy oxycodone [From Percocet] Allergy (Severe, Verified 08/25/24 16:30) Hives-only in percocet form-? tylenol allergy meat Allergy (Severe, Uncoded 08/25/24 16:30) Foot Ulcer Assessment & Plan Assessment & Plan (1) Status post lumbar spine surgery for decompression of spinal cord: Code(s): Z98.890 - Other specified postprocedural states Category: Medical Plan Dear colleague, On 09/02/2024 I saw for 2nd postoperative visit. As you know, the patient underwent a left L4-5 laminotomy on June 30 for left leg pain. Those symptoms disappeared. She return to work after 4 weeks. She states that she has very mild symptoms on the right side, which we will monitor. She has no restrictions. I discharged her from further follow-up. Thank you for letting me take care of your patient. Christopher Taveras MD, PhD Spine Fellowship Trained Neurosurgeon Director, [facility] Coding Level of Care Code Global (27739) Diagnoses Status post lumbar spine surgery for decompression of spinal cord Z98.890
== END 2024-09-02 15:32 | disposition home or self-care (01) ==
PROVIDERS: PCP Internal Medicine; Visit Provider Neurological Surgery
DX: Z98.890 Other specified postprocedural states (principal)
CPT/HCPCS: 99024

== ENCOUNTER → 2024-09-02 15:23 | Outpatient (BNVA) | payer BC, SELFPAY | PROVIDERS: PCP Internal Medicine; Visit Provider Neurological Surgery ==

== ENCOUNTER 2024-10-15 10:58 | Outpatient (AMB) | payer BC, SELFPAY ==
--- NOTE | 2024-10-15 11:39 | MHC.OFFWIV ---
Intake Vital Signs 10/15/24 11:40 BMI Reason not done Patient refused/unable BP 110/62 Blood Pressure Location Lt brachial Position Sitting Pulse 64 Pulse Source Pulse Oximeter Temp 97.9 F Temp Source Oral Pulse Oximetry (%) 95 Oxygen Delivery Method Room Air Intake Visit Reasons: EP fall, rt wrist pain, lt knee pain Intake Note: Pt is here today c/o Lt knee and Rt wrist pain due to a fall yesterday Patient Tobacco Use Status: Never used Tobacco Allergies acetaminophen [From Percocet] Allergy (Severe, Verified 12/09/24 08:11) Hives-only in percocet form-? tylenol allergy oxycodone [From Percocet] Allergy (Severe, Verified 12/09/24 08:11) Hives-only in percocet form-? tylenol allergy meat Allergy (Severe, Uncoded 12/09/24 08:11) Foot Ulcer HPI EP fall, rt wrist pain, lt knee pain HPI Details Patient is a 49-year-old female with multiple comorbidities who comes to the walk-in clinic a day after she fell stepping out of the shower in a hotel in [place]. She had noted the tile floor to be especially slippery and had placed a towel down to prevent slipping, however she reports that she isn't sure if the towel on the floor that moved causing her fall, or if it was the height of the tab she was stepping out of. However she caught her right big toe as she fell, and she landed forward, catching herself on her right posterior wrist and hand. She has had pain, swelling and reduced ROM to the left knee since then, as it is especially painful to flex, and has right wrist pain, especially with flexion. She denies hitting her head, LOC, being dazed, neck or significant back pain currently. No red flag symptoms. She does have a history of multiple musculoskeletal issues, and has seen orthopedics in the past. 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 FORMERLY [facility], [facility] Medical History Fatty liver Allergic rhinitis Transaminitis Vitamin D deficiency Hirsutism Morbid obesity VIRGILIO (obstructive sleep apnea) Disc degeneration, lumbar Spondylosis of lumbosacral spine with radiculopathy Arthritis Back pain Surgical History H/O laminectomy Hx of colonoscopy History of repair of ACL History of hysterectomy Family History Father History of kidney cancer Heart disease Paternal Uncle Throat cancer Paternal Grandfather Heart disease Sister Psoriatic arthritis Mother Diabetes mellitus Other Family history of osteoarthritis Mental health disorder Social History Housing: House Are you a primary career development engineer to a significant other at home: No Do you presently have visiting nurse or other home services: No Alcohol intake: current Alcohol intake frequency: holidays/special occasions only Alcohol type: hard liquor Comment: uses cane on occasion Patient Tobacco Use Status: Never used Tobacco e-Cigarette/Vaping Use: Never Used Second Hand Smoke Exposure: No service: No 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al status: employed 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al exposures/hazards: No Cognitive needs: No Hearing needs: No Vision needs: Yes Review of Systems Const All systems reviewed & are unremarkable except as noted in HPI and below Physical Exam Vital Signs: Last Vital Signs Temp 97.9 F 10/15/24 11:40 Pulse 64 10/15/24 11:40 BP 110/62 10/15/24 11:40 Pulse Ox 95 10/15/24 11:40 Oxygen Delivery Method Room Air 10/15/24 11:40 Const General: cooperative, healthy appearing, comfortable, no acute distress, alert, awake, Physically active, in distress mild and well groomed; No anxious, diaphoretic, ill appearing, intoxicated appearing, poor hygiene or tired appearing Nutritional Appearance: obese Orientation/consciousness: patient oriented x3 Limitations: no limitations Resp Effort & Inspection: normal respiratory effort Cardio Rate: regular rate Skin Other: Good color, warm and dry Neuro General: patient oriented x3 Extrem Other: Patient has a superficial contusion and abrasion to the lateral aspect of right wrist, and pain to the area, especially with movement, which is only slightly limited due to pain. Strength seems intact. Mild snuffbox tenderness. Neurovascularly intact distally. Left knee is mildly more edematous than the right, and is tender to palpation especially to the posterior aspect. Mildly positive posterior drawer test. No obvious laxity with varus and valgus stress. No visible trauma noted otherwise. 3/5 strength compared to the other knee, likely due to pain. She walks with an antalgic gait, favoring left leg. Neurovascularly intact distally Psych Appearance: grossly normal Mental Status: mental status grossly normal Speech and movement: Normal speech and movement present Affect: normal affect Attitude: cooperative Thought process: Normal thought process present Insight: Good insight present (Psych) Judgement: Good judgement present (Psych) Results Reviewed Results Reviewed: X-ray of the right wrist today looks normal to me, with no obvious fracture, including the scaphoid. The left knee also shows no apparent acute osseous trauma on xray as well, however over there is an abnormal area in the femur and tibia that is pending radiologist read for further determination. Assessment & Plan Assessment & Plan (1) Sprain of wrist, right: Code(s): S63.501A - Unspecified sprain of right wrist, initial encounter Qualifiers: Encounter type: initial encounter Qualified Code(s): S63.501A - Unspecified sprain of right wrist, initial encounter (2) Knee pain: Code(s): M25.569 - Pain in unspecified knee Qualifiers: Chronicity: acute Laterality: left Qualified Code(s): M25.562 - Pain in left knee Plan Patient is a 49-year-old female with multiple comorbidities who comes to the walk-in clinic a day after she fell stepping out of the shower in a hotel in [place]. She had noted the tile floor to be especially slippery and had placed a towel down to prevent slipping, however she reports that she isn't sure if the towel on the floor that moved causing her fall, or if it was the height of the tab she was stepping out of. However she caught her right big toe as she fell, and she landed forward, catching herself on her right posterior wrist and hand. There was no apparent head injury, and no associated symptoms developing. No other apparent injury other than the right wrist and the left knee. Plain film x-ray of the right wrist shows no acute osseous findings, pending radiologist read to confirm. It appears to be a contusion and abrasion to the right wrist. She likely has also sprained it, and will fit her into a wrist immobolizer to see if this improves her discomfort. We discussed that wearing the wrist immobilizer would be prudent until we can be sure that the scaphoid is not fractured. She can remove the splint at rest and with icing, but will wear the splint with exertion and will avoid doing anything that causes pain. The left knee also shows no apparent acute osseous trauma on xray as well, however over there is an abnormal area in the femur and tibia that is pending radiologist read for further determination. She can Sina wrap it to help with compression and support, and should ice both the knee and wrist every 2-4 hours until swelling is resolving. She already has multiple medications for anti-inflammatory and pain due to her other multiple musculoskeletal issues, and can continue these as needed. She should rest the areas today, and elevate the injured extremities. She plans to follow up with her primary care on Thursday, and we will work on getting back into Orthopedics especially if her symptoms do not improve in the next week or so. 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 Orders: Orders XR wrist RT w scaphoid 10/15/24 M25.532 - Pain in left wrist XR knee LT 4V 10/15/24 S89.92XA - Unspecified injury of left lower leg, initial encounter Coding Level of Care Code Est Pt Level 3 (31263) Diagnoses Sprain of right wrist, initial encounter S63.501A Encounter type: initial encounter Acute pain of left knee M25.562 Chronicity: acute Laterality: left
[2024-10-15 11:40] VITALS: BP 110/62; PULSE 64; TEMP 36.6; O2SAT 95
== END 2024-10-15 13:12 | disposition home or self-care (01) ==
PROVIDERS: PCP Internal Medicine; Visit Provider Physician Assistant Medical
DX: S63.501A Unspecified sprain of right wrist, initial encounter (principal); M25.562 Pain in left knee

== ENCOUNTER 2024-10-15 10:58 | Outpatient (REF) | payer BC, SELFPAY ==
--- NOTE | ~2024-10-15 | XR_ITS ---
EXAMINATION: XR KNEE, LEFT CLINICAL INFORMATION: S89.92XA - Unspecified injury of left lower leg, initial encounter COMPARISON: Injury left lower leg TECHNIQUE: Four views of the left knee. FINDINGS: The joint compartments are normal. Incidental note made of an area of sclerotic density the proximal diametaphysis of the tibia and in the distal diametaphysis of the femur.. No overlying cortical abnormality. No additional bone or soft tissue abnormalities. XR/XR knee LT 4V IMPRESSION: No arthrosis. No acute abnormality Areas of sclerotic density in the femur and tibia as above. This does not have an aggressive appearance This could reflect old matured fibroxanthomatous or areas of bone infarct. Electronically signed by: Rodri Mcintosh MD 10/15/2024 10:11 PM CARE[facility] BARAJAS
--- NOTE | ~2024-10-15 | XR_ITS ---
EXAMINATION: XR WRIST, RIGHT CLINICAL INFORMATION: Pain in right wrist COMPARISON: X-rays of the right hand March 2024 TECHNIQUE: 4 views of the right wrist including scaphoid view FINDINGS: The bones and soft tissues are normal. No fracture. Alignment is anatomic with normal joint spaces. No erosions or abnormal soft tissue calcifications. XR/XR wrist RT w scaphoid IMPRESSION: Normal right wrist. Scaphoid intact Electronically signed by: Rodri Mcintosh MD 10/16/2024 02:35 PM [facility] BARAJAS
== END 2024-10-15 10:59 | disposition home or self-care (01) ==
LOC: HO.HMGCX 10:58
PROVIDERS: PCP Internal Medicine; Visit Provider Physician Assistant Medical
DX: M25.562 Pain in left knee (principal); M25.532 Pain in left wrist
CPT/HCPCS: 73110; 73564

== ENCOUNTER 2024-10-18 13:04 | Outpatient (AMB) | payer BC, SELFPAY ==
[2024-10-18 13:15] VITALS: BP 140/72; BMI 48.1
--- NOTE | 2024-10-18 13:15 | MHC.PC.OV ---
Vital Signs 10/18/24 13:15 Height 5 ft 4 in Weight 280 lb BMI 48.1 BP 140/72 H Blood Pressure Location Lt brachial Position Sitting Intake Visit Reasons: Follow up from the walk in-Fall Heel Wheeler Required: No Accompanied by: Self / Same As Patient Allergies acetaminophen [From Percocet] Allergy (Severe, Verified 10/18/24 13:26) Hives-only in percocet form-? tylenol allergy oxycodone [From Percocet] Allergy (Severe, Verified 10/18/24 13:26) Hives-only in percocet form-? tylenol allergy meat Allergy (Severe, Uncoded 10/18/24 13:26) Foot Ulcer Medication List - Last Reconciled 10/18/24 by Aileen Isabel MD cetirizine 10 mg PO DAILY PRN cholecalciferol (vitamin D3) 50 mcg PO QAM diclofenac sodium 1% (Aleve (diclofenac)) 2 grams topical QID PRN docusate sodium (Colace) 100 mg PO BID garlic 200 mg PO QAM vvgcpdyn-xws-JL-lycopen-lutein 0.4 mg-300 mcg- 250 mcg (Centrum Silver) 1 tab PO QAM oxybutynin chloride 10%(100mg/gram) (Gelnique) 1 g topical DAILY oxycodone 5 mg PO Q6-8H PRN pentoxifylline ER 400 mg PO TID vvaxqzam-zhce-hbhfp-oreg-capry 100 mg-150 mg- 50 mg-150 mg 1 cap PO QAM ubidecarenone-omega 3-vit E 25-150-200 mg-mg-unit (Co B-82-Icwfnqb E-Fish Oil) 1 cap PO QAM vitamin B complex (B Complex-Vitamin B12 tablet) 1 tab PO DAILY vitamin E (dl, acetate) 180 mg PO QAM Tobacco use date assessed: 01/28/24 Dental Screening Dental Screen Date: 10/18/24 Did you have a dental visit in the last 12 months?: Yes Did you have a dental problem in the last 6 months where you did not have access to dental care?: No Was dental information given to patient?: Patient has dentist HPI HPI Comments History of Present Illness Details The patient is a 49-year-old female presenting with injuries sustained from a fall in the bathtub in a hotel in [place]. During the incident, she slipped on a polished floor despite placing a towel down to prevent slipping. The fall resulted in a rash and multiple injuries including cuts on her right wrist and on two toes, and a contusion on the left knee. Subsequent imaging of the knee indicated fibroid tissue, but it was considered non-malignant. The patient experiences pain when the knee is fully flexed. She has difficulty bending her left knee, particularly at the back. The right knee also presents with pain, though it is less severe than issues with the left knee. Right wrist feels markedly improved. She also has constipation that is stable with Colace as needed. She is morbidly obese with a BMI of 48.1 and was advised to do diet and exercise to reach BMI goal less than 30. Denies any chest pain or shortness on breath. FORMERLY [facility] Medical History (Updated 10/19/24 @ 07:24 by Aileen Isabel MD) Fatty liver Allergic rhinitis Transaminitis Vitamin D deficiency Hirsutism Morbid obesity VIRGILIO (obstructive sleep apnea) Disc degeneration, lumbar Spondylosis of lumbosacral spine with radiculopathy Arthritis Back pain Surgical History Hx of colonoscopy History of repair of ACL History of hysterectomy Family History Father History of kidney cancer Paternal Uncle Throat cancer Paternal Grandfather Heart disease Sister Psoriatic arthritis Mother Diabetes mellitus Other Family history of osteoarthritis Mental health disorder Social History Housing: House Are you a primary child care team lead to a significant other at home: No Do you presently have visiting nurse or other home services: No Alcohol intake: current Alcohol intake frequency: holidays/special occasions only Alcohol type: beer Comment: uses cane on occasion Patient Tobacco Use Status: Never used Tobacco e-Cigarette/Vaping Use: Never Used Second Hand Smoke Exposure: No service: No 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al status: employed 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 How many drinks containing alcohol do you have on a typical day when you are drinking?: 3 or 4 3. How often do you have six or more drinks on one occasion?: Never Total Score: 1 ASHER-7 AMB Questionnaire ASHER-7 Date ASHER - 7 assessed: 01/28/24 Source: Developed by Drs. Viktor Ching, Lola Martin, Rosas Yu and colleagues, with an educational harris from [employer]. Review of Systems Const All systems reviewed & are unremarkable except as noted in HPI and below Card Denies chest pain at rest, Denies chest pain with activity, Denies edema, Denies irregular heart rhythm, Denies claudication, Denies dyspnea, Denies dyspnea on exertion, Denies orthopnea, Denies paroxysmal nocturnal dyspnea and Denies slow heart rate Resp Denies cough, Denies dyspnea and Denies dyspnea on exertion GI Denies abdominal pain, Denies change in bowel habits, Denies excessive flatus, Denies nausea and Denies vomiting Denies urinary incontinence, Denies urinary hesitancy and Denies urinary urgency Musc Denies abnormal gait, Denies atrophy, Denies deformity, Reports arthralgias and Denies limited range of motion Skin/Breast Denies bleeding lesions, Denies changing lesions and Denies rash Neuro Denies abnormal gait and Denies lack of coordination Physical exam (Primary Care) Vital Signs: Last Vital Signs BP 140/72 H 10/18/24 13:15 BMI result Body Mass Index 48.1 BMI Assessment/Plan discussion: High BMI High, discussed plan: lifestyle, weight reduction, dietary and physical activity Tobacco/Smoking Status: Tobacco use Status Tobacco use date assessed 01/28/24 10/18/24 13:20 Patient Tobacco Use Status Never used Tobacco 10/18/24 13:20 e-Cigarette/Vaping Use Never Used 10/18/24 13:20 Thrive Assessment: Date of Thrive Assessment Date Thrive assessed 01/28/24 10/18/24 13:20 Resp Effort & Inspection: normal respiratory effort Auscultation: clear to auscultation bilaterally Cardio Jugular venous distension: no JVD Rate: regular rate Rhythm: regular rhythm Heart sounds: S1 normal heart sound present and S2 normal heart sound present Extrem General: Yes full ROM Office Procedures Flu Questionnaire Does the patient have a severe egg allergy?: No Does the patient have severe life threatening allergies?: No Does the patient have a fever or illness today?: No Has the patient ever had Guillain-[place] Syndrome?: No Has the patient ever had any past reaction to a flu shot?: No Immunizations Fluarix Triv [id number] (PF) 45 mcg (15 mcg x 3)/0.5 mL IM syringe Performing Provider: Aileen Isabel MD Per[facility] [place] Administered by: ZACK Cardozo on 10/18/24 13:40 Dose Route Admin Location Dispensed Lot Number Expiration Date NDC Criminal Psychologist 0.5 mL IM Right Deltoid 0.5 mL [id number] 05/15/25 [id number] [employer] VIS Given Date VIS Provided VIS Publication Date 10/18/24 Single Vaccine 21 Eligibility Eligibility Date Funding Source Not [facility] Eligible 10/18/24 Private Coding Level of Care Code Est Pt Level 4 (44018) Complex EM visit Add On G2211 Diagnoses Acute pain of left knee M25.562 Chronicity: acute Morbid obesity E66.01 Time Spent (min) 23 Assessment & Plan Assessment & Plan (1) Left knee pain: Code(s): M25.562 - Pain in left knee Category: Medical Qualifiers: Chronicity: acute Qualified Code(s): M25.562 - Pain in left knee (2) Morbid obesity: Comment: PATIENT IS WELL AWARE OF THE FACT THAT SHE HAS MORBID OBESITY. AND SHE DOES HAVE INTENTION TO LOSE WEIGHT , HOWEVER SHE HAS NOT SUCCEEDED SO FAR. Code(s): E66.01 - Morbid (severe) obesity due to excess calories Category: Medical Plan - Right Wrist Injury: Refer to orthopedics for further evaluation due to ongoing pain upon complete flexion, despite non-malignant findings on imaging. - Left and Right Knee Pain: Orthopedic referral for evaluation to assess ongoing difficulty and pain in left knee and right knee. - Constipation: Continue use of Colace as needed for constipation management. - Allergies: Continue to avoid Percocet and meat due to reported allergies. - Morbid Obesity: Do diet and exercise to reach BMI goal less than 30. Patient was informed and verbally consented to the use of an ambient scribe for clinic note documentation during this visit. During the consultation, I discussed the findings regarding the presence of fibroid tissue in the right wrist imaging, emphasizing that it appeared non-malignant. I advised the patient on referral to orthopedics for a comprehensive evaluation of her knee and wrist injuries. The potential incidental nature of the fibroid finding and its lack of symptoms were explained. We talked about lifestyle modifications, particularly weight management through diet and exercise, noting her concerns about a possible upcoming surgery. I recommended continuation of her current medications and reiterated her allergen avoidance. The patient was informed about the necessity for follow-up care and consultation with orthopedic specialists. Orders: Orders Vitamin D 25-OH Total 10/18/24 E55.9 - Vitamin D deficiency, unspecified Comprehensive [place]. Panel Fast 10/18/24 E66.01 - Morbid (severe) obesity due to excess calories Thyroid Stimulating Hormone 10/18/24 E66.01 - Morbid (severe) obesity due to excess calories Influenza [id number] Immunization 10/18/24 Z23 - Encounter for immunization Lipid Panel 10/18/24 E78.5 - Hyperlipidemia, unspecified Complete Blood Count Auto Diff 10/18/24 E66.01 - Morbid (severe) obesity due to excess calories Referrals Orthopedics Referral M25.562 - Pain in left knee Patient Instructions: - Follow up with the medical management specialist for knee and wrist evaluation. - Continue to manage constipation with Colace as needed. - Avoid Percocet and meat due to known allergies. - Maintain a healthy diet and regular exercise as part of weight management efforts. - Monitor symptoms and seek care if conditions worsen or new symptoms arise.
== END 2024-10-18 13:42 | disposition home or self-care (01) ==
PROVIDERS: PCP Internal Medicine; Visit Provider Internal Medicine
DX: M25.562 Pain in left knee (principal); E66.01 Morbid (severe) obesity due to excess calories; Z68.42 Body mass index [BMI] 45.0-49.9, adult

== ENCOUNTER → 2024-10-18 13:04 | Outpatient (BNVA) | payer BC, SELFPAY | PROVIDERS: PCP Internal Medicine; Visit Provider Internal Medicine | DX: M25.562 Pain in left knee (principal); E66.01 Morbid (severe) obesity due to excess calories; Z68.42 Body mass index [BMI] 45.0-49.9, adult; Z23 Encounter for immunization | CPT/HCPCS: 90471; 90656 ==

== ENCOUNTER 2024-10-20 14:16 | Outpatient (REF) | payer BC, SELFPAY | END 2024-10-20 14:17 | disposition home or self-care (01) | LOC: HO.HOSX 14:16 | PROVIDERS: PCP Internal Medicine; Visit Provider Physician Assistant | DX: M25.562 Pain in left knee (principal) | CPT/HCPCS: 73560 ==

== ENCOUNTER 2024-10-20 14:16 | Outpatient (AMB) | payer BC, SELFPAY ==
--- NOTE | 2024-10-20 14:37 | A.OFFVIS_ITS ---
Vital Signs 10/20/24 14:51 Height 5 ft 4 in Weight 280 lb BMI 48.1 Intake Visit Reasons: New Prob: Lt knee pain, fell Intake Note: Loly is a 49 year old female who presents today for a new problem visit with complaints of left knee pain s/p fall DOI: 10/14/24. Patient reports she slipped and fell out of the tub in the hotel bathroom. She states her pain is mainly lat eral and posterior aspect of the knee. Patient states that her pain is worse when she is bending her knee and when she is using the stairs. Patient has tried icing which gives her relief. Allergies acetaminophen [From Percocet] Allergy (Severe, Verified 10/20/24 14:50) Hives-only in percocet form-? tylenol allergy oxycodone [From Percocet] Allergy (Severe, Verified 10/20/24 14:50) Hives-only in percocet form-? tylenol allergy meat Allergy (Severe, Uncoded 10/18/24 13:26) Foot Ulcer HPI HPI New Prob: Lt knee pain, fell: Details: 49-year-old female who presents in the office today for an evaluation of left knee pain. The patient was seen at [facility] on 10/15/24 status post a fall in the bathtub while stepping out of it in a hotel in [place]. She slipped on a polished floor despite placing a towel down to prevent slipping. She sustained a rash, cuts on her right wrist and on two toes, and a contusion on the left knee. X-rays of the left knee and right wrist were obtained in the clinic. She was seen by her PCP, Dr. Ankush Isabel on 10/18/24 for the follow-up of the left knee pain. Her right wrist pain was noted to be improving. X-rays of the left knee revealed the presence of fibroid tissue. She was referred to [facility] for further evaluation and treatment of left knee pain and the evaluation of fibroid tissue. While in the office today, the patient reports left knee pain, which is mainly on the lateral and posterior aspects of the knee. She mentions worsening pain when bending her left knee and when ambulating with the stairs. She has tried icing with relief. [facility] Medical History Fatty liver Allergic rhinitis Transaminitis Vitamin D deficiency Hirsutism Morbid obesity VIRGILIO (obstructive sleep apnea) Disc degeneration, lumbar Spondylosis of lumbosacral spine with radiculopathy Arthritis Back pain Surgical History Hx of colonoscopy History of repair of ACL History of hysterectomy Family History Father History of kidney cancer Paternal Uncle Throat cancer Paternal Grandfather Heart disease Sister Psoriatic arthritis Mother Diabetes mellitus Other Family history of osteoarthritis Mental health disorder Social History Housing: House Are you a primary child caregiver to a significant other at home: No Do you presently have visiting nurse or other home services: No Alcohol intake: current Alcohol intake frequency: holidays/special occasions only Alcohol type: beer Comment: uses cane on occasion Patient Tobacco Use Status: Never used Tobacco e-Cigarette/Vaping Use: Never Used Second Hand Smoke Exposure: No service: No 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al status: employed 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al exposures/hazards: No Cognitive needs: No Hearing needs: No Vision needs: Yes Review of Systems Const All systems reviewed & are unremarkable except as noted in HPI and below Physical Exam Vital Signs: BMI result Body Mass Index 48.1 Const General: cooperative, healthy appearing and no acute distress Resp Effort & Inspection: normal respiratory effort and able to speak in complete sentences Cardio Rate: regular rate Peripheral pulses: Peripheral pulses 2+ throughout GI Palpation (GI): Soft to palpation Skin Lesions: no lesions Rashes: no rashes Extrem Other: Left knee: Tenderness to palpation along the hamstring posteriorly to the tibial attachment site. ROM is 0-90 degrees. Mild crepitus felt with ROM. NVI. Assessment & Plan Assessment & Plan (1) Strain of left hamstring: Code(s): S76.312A - Strain of muscle, fascia and tendon of the posterior muscle group at thigh level, left thigh, initial encounter Category: Medical (2) Bone infarct: Code(s): M87.9 - Osteonecrosis, unspecified Category: Medical Plan Ms. Kulwinder Gutierrez is a 49-year-old female who presents in the office today for an evaluation of left knee pain. The patient was seen at [facility] on 10/15/24 status post a fall in the bathtub while stepping out of it in a hotel in [place]. She slipped on a polished floor despite placing a towel down to prevent slipping. She sustained a rash, cuts on her right wrist and on two toes, and a contusion on the left knee. X-rays of the left knee and right wrist were obtained in the clinic. She was seen by her PCP, Dr. Ankush Isabel for the follow- up of the left knee pain. Her right wrist pain is noted to be improving. X-rays of the left knee revealed the presence of fibroid tissue. She was referred to [facility] for further evaluation and treatment of left knee pain and the evaluation of fibroid tissue. While in the office today, the patient reports left knee pain, which is mainly on the lateral and posterior aspect of the knee. She mentions worsening pain when bending her left knee and when ambulating with the stairs. She has tried icing with relief. The patient was referred to physical therapy for hamstring strain. I have ordered an MRI of the left knee to further evaluate proximal tibial shaft sclerotic density. the patient was prescribed celecoxib 200 mg PO BID for pain. Follow-up will be after the MRI is obtained, or sooner if needed. X-rays of the right wrist, obtained on 10/15/24, revealed: Normal right wrist, scaphoid intact. X-rays of the left knee, obtained on 10/15/24, revealed: No arthrosis. No acute abnormality areas of sclerotic density in the femur and tibia as above. This does not have an aggressive appearance This could reflect old matured fibroxanthomatous or areas of bone infarct. Orders: Orders PT Evaluation and Treatment 10/20/24 S76.312A - Strain of muscle, fascia and tendon of the posterior muscle group at thigh level, left thigh, initial encounter MR Tibia LT wo Contrast 10/20/24 M87.9 - Osteonecrosis, unspecified XR knee LT 1V 10/20/24 M25.569 - Pain in unspecified knee Medications: New celecoxib (Celebrex) 200 mg PO BID 60 caps 0RF 30 days Patient Instructions: Scribed by Kenzie Youngblood medical center manager, for Gaby Karen LOPEZ on 10/20/24 at 3:48 pm EST. Coding Level of Care Code Est Pt Level 4 (83295) Diagnoses Strain of left hamstring S76.312A Bone infarct M87.9
[2024-10-20 14:51] VITALS: BMI 48.1
== END 2024-10-20 15:12 | disposition home or self-care (01) ==
PROVIDERS: PCP Internal Medicine; Visit Provider Physician Assistant
DX: S76.312A Strain of muscle, fascia and tendon of the posterior muscle group at thigh level, left thigh, initial encounter (principal); M87.9 Osteonecrosis, unspecified
CPT/HCPCS: 99214

== ENCOUNTER 2024-10-29 08:42 | Outpatient (REF) | payer BC, SELFPAY ==
[2024-10-29 08:55] LABS: MANUAL DIFF FLAG NO
[2024-10-29 09:24] LABS: Basophils Percent Auto 0.4 % (0-2); Eosinophils Absolute Auto 0.2 X10*3/uL (0.0-0.4); Eosinophils Percent Auto 2.7 % (0-4); Hematocrit 40.8 % (37.0-47.0); Hemoglobin 13.3 g/dl (12.0-16.0); Imm Gran Abs Auto 0.01 X10*3/uL (0.00-0.03); Imm Gran Pct Auto 0.2 % (0.0-0.4); Lymphocytes Absolute Auto 2.9 X10*3/uL (1.2-4.9); Lymphocytes Percent Auto 51.4 % (20-40); Mean Corpuscular HGB Conc 32.6 g/dl (31.0-35.0); Mean Corpuscular Hemoglobin 27.9 pg (27.0-33.0); Mean Corpuscular Volume 85.7 fL (80.0-98.0); Mean Platelet Volume 11.3 fL (9.4-12.3); Monocytes Absolute Auto 0.4 X10*3/uL (0.1-1.2); Monocytes Percent Auto 7.8 % (2-11); Neutrophils Absolute Auto 2.1 x10*3/uL (2.0-8.3); Neutrophils Percent Auto 37.5 % (45-73); Platelet Count 235 X10*3/uL (160-400); Red Blood Count 4.76 X10*6/uL (4.20-5.50); Red Cell Distribution Width 14.4 % (11.0-16.0); White Blood Count 5.6 X10*3/uL (4.8-10.8)
[2024-10-29 10:03] LABS: Erythrocyte Sedimentation Rate 10 MM/HR (0-20)
[2024-10-29 10:12] LABS: Alanine Aminotransferase 51 U/L (0-31); Albumin Level 4.2 g/dL (3.5-5.0); Alkaline Phosphatase 78 U/L (39-117); Anion Gap 11 (12-20); Aspartate Amino Transferase 27 U/L (5-31); Bilirubin Total 0.4 mg/dL (0.0-1.0); Blood Urea Nitrogen 15 mg/dL (9-16); Calcium 9.5 mg/dL (8.4-10.2); Carbon Dioxide 27 mmol/L (22-29); Chloride 110 mmol/L (96-108); Cholesterol 165 mg/dL (<200); Estimated Glomerular Filt Rate > 60; Glucose Fasting 112 mg/dL (60-99); HDL Cholesterol 45 mg/dL (>40); LDL Cholesterol Calculated 94 mg/dL (<100); Potassium 4.4 mmol/L (3.3-5.1); Sodium 144 mmol/L (135-145); Total Protein 7.1 g/dL (6.5-8.0); Triglycerides 134 mg/dL (<150)
[2024-10-29 10:31] LABS: Thyroid Stimulating Hormone 1.22 uIU/mL (0.32-4.0); Vitamin D 25-OH Total 27.4 ng/mL (>30)
== END 2024-10-29 08:43 | disposition home or self-care (01) ==
LOC: HO.LAB 08:42
PROVIDERS: PCP Internal Medicine; Visit Provider Internal Medicine
DX: E55.9 Vitamin D deficiency, unspecified (principal); M25.562 Pain in left knee; E66.01 Morbid (severe) obesity due to excess calories; E78.5 Hyperlipidemia, unspecified
CPT/HCPCS: 36415; 80053; 80061; 82306; 84443; 85025; 85652

== ENCOUNTER 2024-11-02 16:31 | Outpatient (REF) | payer BC, SELFPAY ==
--- NOTE | ~2024-11-02 | MR_ITS ---
EXAMINATION: MR LOWER EXTREMITY NONJOINT WITHOUT CONTRAST, LEFT CLINICAL INFORMATION: Osteonecrosis. COMPARISON: X-ray of the left knee 10/15/2024. TECHNIQUE: MRI of the left lower extremity/tibia fibula was performed using routine sequences on a high-field scanner. FINDINGS: SUBCUTANEOUS SOFT TISSUES: Scattered feathery-appearing fluidlike signal circumferentially about the lower leg compatible with edema. MUSCLES/TENDONS: Minimal scattered feathery-appearing increased T2 signal within the gastrocnemius muscle compatible with mild muscle strain. Tendons intact. OSSEOUS STRUCTURES: There is a well-circumscribed intramedullary lesion within the proximal diametaphysis of the tibia corresponding to the area of mixed sclerotic lucent lesion in the proximal tibia seen on prior x-rays. The lesion is predominantly fat-containing with peripheral area of low T1 and low T2 signal. There is no surrounding edema. The lesion measures 10 mm transverse, 10 mm AP, and 40 mm craniocaudal. No surrounding edema. No cortical destruction or erosion. No associated periosteal reaction or soft tissue mass. No additional lesions in the tibia or fibula. The partially visualized ankle and knee are unremarkable. NEUROVASCULAR STRUCTURES: Unremarkable. MR/MR Tibia LT wo Contrast IMPRESSION: 1. 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 Favor old infarct. 2. No additional lesions in the tibia or fibula. 3. Mild edema in the subcutaneous soft tissues. 4. Mild strain of the gastrocnemius muscle. Electronically signed by: Rodri Mcintosh MD 11/03/2024 12:01 PM [facility]
== END 2024-11-02 16:32 | disposition home or self-care (01) ==
LOC: HO.MRI 16:31
PROVIDERS: PCP Internal Medicine; Visit Provider Physician Assistant
DX: M87.9 Osteonecrosis, unspecified (principal)
CPT/HCPCS: 73718

== ENCOUNTER 2024-11-03 14:39 | Outpatient (REF) | payer BC, SELFPAY ==
--- NOTE | ~2024-11-03 | MR_ITS ---
EXAMINATION: MR LOWER EXTREMITY NON JOINT WITHOUT CONTRAST, LEFT CLINICAL INFORMATION: Osteonecrosis unspecified. Lesion left distal femoral metadiaphysis, possible osteonecrosis. COMPARISON: Plain film left knee 10/15/2024. MRI left tibia fibula 11/02/2024. TECHNIQUE: MRI of the left left femur was performed using routine sequences on a high-field 1.5 Nancy Siemens scanner. No contrast was administered. FINDINGS: Mixed sclerotic and lytic lesion on plain film radiography in the medial distal femoral metadiaphysis is again demonstrated. Plain films reviewed, this has a fairly classic appearance for a nonossifying fibroma/fibrous cortical defect on plain film. In contrast, bone infarcts tend to occur in the central medullary cavity, and this is positioned in a peripherally based dislocation. MRI demonstrates, in the medial left distal femoral metadiaphysis, spanning 6.2 x 3.1 x 1.3 cm (CC, AP, TRV), is a minimally complex, multilocular appearing, T1 mixed hyperintense and hypointense lesion with minimally T2 hyperintense bubbly foci involving the cortex (series 9, image 47) with minimal endosteal scalloping present. [place] is lengthwise along the axis of the shaft. There is associated mild cortical thinning abutting the bubbly foci, with cortical thickening as well, in the superior medial aspect of the lesion. There are no permeative/erosive bone changes. There is no soft tissue component or periostitis. There is no gross marrow edema within the marrow cavity or cortex. This lesion has characteristics fairly typical of benign lesion, namely a nonossifying fibroma (fibrous cortical defect). There is no additional abnormal bone lesion or bone marrow signal identified within the left femur. There is a small amount of fluid within the left suprapatellar bursa. The imaged muscles and subcutaneous soft tissues have a normal appearance and signal. MR/MR femur LT wo con IMPRESSION: 1. 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 No associated soft tissue mass extension, gross marrow replacement, periostitis, or permeative/erosive bony change. Major differential includes a medullary bone infarct although the imaging appearance is not typical for that diagnosis given the peripheral location and bubbly involvement of cortex. 2. No evidence of pathologic fracture through this lesion. 3. No additional bony or soft tissue lesions seen. Electronically signed by: Cordell Chavez MD 11/04/2024 02:45 PM [facility]
== END 2024-11-03 14:40 | disposition home or self-care (01) ==
LOC: HO.MRI 14:39
PROVIDERS: PCP Internal Medicine; Visit Provider Physician Assistant
DX: M87.9 Osteonecrosis, unspecified (principal)
CPT/HCPCS: 73718

== ENCOUNTER → 2024-11-03 14:44 | Outpatient (BNV) | payer BC, SELFPAY | PROVIDERS: PCP Internal Medicine; Visit Provider Radiology Diagnostic Radiology | DX: M87.9 Osteonecrosis, unspecified (principal) | CPT/HCPCS: 73718 ==

== ENCOUNTER 2024-11-28 07:17 | Outpatient (AMB) | payer BC, SELFPAY ==
--- NOTE | 2024-11-28 07:37 | A.OFFPC_ITS ---
Vital Signs 11/28/24 07:39 Height 5 ft 4 in Weight 281 lb 4 oz BMI 48.3 BP 126/82 Blood Pressure Location Lt brachial Position Sitting Intake Visit Reasons: Annual exam Intake Note: Patient here for an annual physical exam Anesthesiology Tech Required: No Accompanied by: Self / Same As Patient Allergies acetaminophen [From Percocet] Allergy (Severe, Verified 11/28/24 07:47) Hives-only in percocet form-? tylenol allergy oxycodone [From Percocet] Allergy (Severe, Verified 11/28/24 07:47) Hives-only in percocet form-? tylenol allergy meat Allergy (Severe, Uncoded 11/28/24 07:47) Foot Ulcer Medication List - Last Reconciled 11/28/24 by Aileen Isabel MD celecoxib (Celebrex) 200 mg PO BID 30 days cetirizine 10 mg PO DAILY PRN cholecalciferol (vitamin D3) 50 mcg PO QAM diclofenac sodium 1% (Aleve (diclofenac)) 2 grams topical QID PRN docusate sodium (Colace) 100 mg PO BID garlic 200 mg PO QAM ehjozajf-xak-XH-lycopen-lutein 0.4 mg-300 mcg- 250 mcg (Centrum Silver) 1 tab PO QAM oxybutynin chloride 10%(100mg/gram) (Gelnique) 1 g topical DAILY oxycodone 5 mg PO Q6-8H PRN pentoxifylline ER 400 mg PO TID semaglutide (weight loss) (Wegovy) 0.25 mg (0.5 mL) subcut QWEEK 4 weeks hvdoohrc-ugws-qavvp-oreg-capry 100 mg-150 mg- 50 mg-150 mg 1 cap PO QAM ubidecarenone-omega 3-vit E 25-150-200 mg-mg-unit (Co Z-60-Fxnwgcf E-Fish Oil) 1 cap PO QAM vitamin B complex (B Complex-Vitamin B12 tablet) 1 tab PO DAILY vitamin E (dl, acetate) 180 mg PO QAM Tobacco use date assessed: 11/28/24 Dental Screening Dental Screen Date: 11/28/24 Did you have a dental visit in the last 12 months?: Yes Did you have a dental problem in the last 6 months where you did not have access to dental care?: No Was dental information given to patient?: Patient has dentist HPI HPI Comments History of Present Illness Details This is a 49-year-old female that comes for physical exam. Tdap vaccine done 2017 and next Tdap should be 2027. Colonoscopy done 2021 showing tubular adenoma next colonoscopy should be 2026. No need for Pap smear due to hysterectomy for benign reasons. Mammogram done 2022 and I will order another mammogram. She is morbidly obese with a BMI of 48.3 and has tried diet and exercise with no significant improvement. Wegovy was denied by insurance last month. She also has obstructive sleep apnea on CPAP doing well and I will order Zepbound to help her with a weight. Labs were discussed and were within normal limits except low vitamin-D and impaired glucose tolerance. Had flu vaccine but has not had COVID vaccine last year. 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 Complains of skin lesions and would like Dermatology referral. Also complains of trigger finger on left ring finger and will be referred to Ortho. [facility] Medical History (Updated 11/28/24 @ 08:06 by Aileen Isabel MD) Fatty liver Allergic rhinitis Transaminitis Vitamin D deficiency Hirsutism Morbid obesity VIRGILIO (obstructive sleep apnea) Disc degeneration, lumbar Spondylosis of lumbosacral spine with radiculopathy Arthritis Back pain Surgical History (Updated 11/28/24 @ 08:00 by Aileen Isabel MD) H/O laminectomy Hx of colonoscopy History of repair of ACL History of hysterectomy Family History (Updated 11/28/24 @ 07:55 by Aileen Isabel MD) Father History of kidney cancer Heart disease Paternal Uncle Throat cancer Paternal Grandfather Heart disease Sister Psoriatic arthritis Mother Diabetes mellitus Other Family history of osteoarthritis Mental health disorder Social History (Updated 11/28/24 @ 07:56 by Aileen Isabel MD) Housing: House Are you a primary childcare administrator to a significant other at home: No Do you presently have visiting nurse or other home services: No Alcohol intake: current Alcohol intake frequency: holidays/special occasions only Alcohol type: hard liquor Comment: uses cane on occasion Patient Tobacco Use Status: Never used Tobacco e-Cigarette/Vaping Use: Never Used Second Hand Smoke Exposure: No service: No 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al status: employed 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 1. Little interest or pleasure in doing things: not at all 2. Feeling down, depressed, or hopeless: not at all 3. Trouble falling or staying asleep, or sleeping too much: not at all 4. Feeling tired or having little energy: not at all 5. Poor appetite or overeating: not at all 6. Feeling bad about yourself - or that you are a failure or have let yourself or your family down: not at all 7. Trouble concentrating on things, such as reading the newspaper or watching television: not at all 8. Moving or speaking so slowly that other people could have noticed. Or the opposite - being so fidgety or restless that you have been moving around a lot more than usual: not at all 9. Thoughts that you would be better off or of hurting yourself in some way: not at all Total score: 0 Depression Screening Interpretation: Negative Depression Screening Done: Yes 31895 - PHQ-9 Billing: Yes Source: Developed by Drs. Viktor Ching, Lola Martin, Rosas Yu and colleagues, with an educational harris from [employer]. Thrive Questionnaire Date Thrive assessed: 11/28/24 I am a: Patient What is your living situation today?: I have a steady place to live Within the past 12 months, did the food you bought not last and you didn't have the money to get more?: Never true Within the past 12 months, did you worry whether your food would run out before you got money to buy more?: Never true Do you have trouble paying for medicines?: No Do you have trouble getting transportation to medical appointments?: No Do you have trouble paying your heating and electricity bill?: No Do you have trouble taking care of your child, family member or friend?: No Do you have trouble with day-to-day activities such as bathing, preparing meals, shopping, managing finances, etc.?: No Are you currently unemployed and looking for a job?: No Are you interested in more education?: No Please select the resources that you would like help with: None Currently or been in a relationship where the following occur: No concerns rep orted THRIVE Score: 0 AUDIT C Alcohol Use Questionnaire (AUDIT-C) 1. How often do you have a drink containing alcohol?: Monthly or less 2. How many drinks containing alcohol do you have on a typical day when you are drinking?: 1 or 2 3. How often do you have six or more drinks on one occasion?: Never Total Score: 1 Score Reviewed/Action Taken: No ASHER-7 AMB Questionnaire ASHER-7 Date ASHER - 7 assessed: 11/28/24 Feeling nervous, anxious, or on edge: 1 = Several days Not being able to stop or control worryin = Nearly every day Worrying too much about different things: 3 = Nearly every day Trouble relaxin = Several days Being so restless that it is hard to sit still: 0 = Not at all Becoming easily annoyed or irritable: 1 = Several days Feeling afraid as if something awful might happen: 0 = Not at all Total ASHER-7 score (0-4 normal; 5-9 mild; 10-14 moderate; 15-21 severe): 9 Source: Developed by Drs. Viktor Ching, Lola Martin, Rosas Yu and colleagues, with an educational harris from [employer]. ASHER-7 Assessment Billing ASHER-7 Assessment Tool: ASHER-7 Assessment 69361 Review of Systems Const All systems reviewed & are unremarkable except as noted in HPI and below Card Denies chest pain at rest, Denies chest pain with activity, Denies edema, Denies irregular heart rhythm, Denies claudication, Denies dyspnea, Denies dyspnea on exertion, Denies orthopnea, Denies paroxysmal nocturnal dyspnea and Denies slow heart rate Resp Denies cough, Denies dyspnea and Denies dyspnea on exertion GI Denies abdominal pain, Denies change in bowel habits, Denies excessive flatus, Denies nausea and Denies vomiting Denies urinary incontinence, Denies urinary hesitancy and Denies urinary urgency Musc Denies atrophy, Denies deformity, Reports arthralgias and Reports limited range of motion Skin/Breast Denies bleeding lesions, Denies changing lesions, Reports lesions and Denies rash Psych Reports anxiety Physical exam (Primary Care) Vital Signs: Last Vital Signs BP 126/82 11/28/24 07:39 BMI result Body Mass Index 48.3 BMI Assessment/Plan discussion: High BMI High, discussed plan: lifestyle, weight reduction, dietary and physical activity Tobacco/Smoking Status: Tobacco use Status Tobacco use date assessed 11/28/24 11/28/24 07:44 Patient Tobacco Use Status Never used Tobacco 11/28/24 07:44 e-Cigarette/Vaping Use Never Used 11/28/24 07:44 PHQ-9: PHQ-9 Score PHQ-9: Total score 0 11/28/24 07:44 Depression Screening Interpretation: Negative Thrive Assessment: Date of Thrive Assessment Date Thrive assessed 11/28/24 11/28/24 07:44 Currently or been in a relationship where the following occur: No concerns reported Const Orientation/consciousness: patient oriented x3 HENMT Head: Yes normal to inspection, Yes normocephalic and Yes atraumatic Ears: external ears normal Eyes General: appearance normal, both eyes and all related structures Eyelids: Yes eyelids normal Conjunctivae: conjunctivae normal Neck Neck: Yes normal visual inspection and Yes supple Resp Effort & Inspection: normal respiratory effort Auscultation: clear to auscultation bilaterally Cardio Jugular venous distension: no JVD Rate: regular rate Rhythm: regular rhythm Heart sounds: S1 normal heart sound present and S2 normal heart sound present GI Inspection: Yes normal to inspection Palpation (GI): Soft to palpation and nontender Auscultation: normal bowel sounds Skin General skin exam: no rashes or lesions noted Neuro General: patient oriented x3 and no focal motor deficits Extrem General: Yes full ROM Psych Appearance: grossly normal Coding Level of Care Code Est Pt Level 3 (80681) Est Pt Prev Care 40-64y(81497) Diagnoses Physical exam Z00.00 Morbid obesity E66.01 Trigger finger of left hand M65.30 Skin lesion L98.9 Bone infarct M87.9 Additional Codes PHQ-9 - 88955 - PHQ-9 Billing: Yes ([id number]) ASHER-7 Assessment Billing - ASHER-7 Assessment Tool: ASHER-7 Assessment 28028 ([id number]) Time Spent (min) 34 Assessment & Plan Assessment & Plan (1) Physical exam: Code(s): Z00.00 - Encounter for general adult medical examination without abnormal find ings Category: Medical (2) Morbid obesity: Comment: PATIENT IS WELL AWARE OF THE FACT THAT SHE HAS MORBID OBESITY. AND SHE DOES HAVE INTENTION TO LOSE WEIGHT , HOWEVER SHE HAS NOT SUCCEEDED SO FAR. Code(s): E66.01 - Morbid (severe) obesity due to excess calories Category: Medical (3) Trigger finger of left hand: Code(s): M65.30 - Trigger finger, unspecified finger Category: Medical (4) Skin lesion: Code(s): L98.9 - Disorder of the skin and subcutaneous tissue, unspecified Category: Medical (5) Bone infarct: Code(s): M87.9 - Osteonecrosis, unspecified Category: Medical Plan - Evaluation of skin lesions was discussed. - Consideration for dermatological assessment if symptoms persist or worsen. - Zepbound sent and pending for insurance approval. - Ortho referral for trigger finger. Patient was informed and verbally consented to the use of an ambient scribe for clinic note documentation during this visit. Orders: Orders MM tomosynthesis screening BI Today Z12.31 - Encounter for screening mammogram for malignant neoplasm of breast Referrals Dermatology Referral L98.9 - Disorder of the skin and subcutaneous tissue, unspecified Orthopedics Referral M65.30 - Trigger finger, unspecified finger Medications: New tirzepatide (weight loss) (Zepbound) for 4 weeks 2.5 mg (0.5 mL) subcut QWEEK 4 weeks 2 mL 0RF E66.01 - Morbid (severe) obesity due to excess calories, G47.33 - Obstructive sleep apnea (adult) (pediatric) Discontinued docusate sodium (Colace) Discontinued Reason: Patient Completed Course 100 mg PO BID 20 caps 0RF semaglutide (weight loss) (Wegovy) administer weeks 1 through 4 of therapy Discontinued Reason: Patient Completed Course 0.25 mg (0.5 mL) subcut QWEEK 4 weeks 2 mL 0RF E66.01 - Morbid (severe) obesity due to excess calories Patient Instructions: - Monitor the skin lesions for any changes in size, color, or texture. - Report any new symptoms to the clinic. - Follow up if lesions do not improve or if there are any new concerns.
[2024-11-28 07:39] VITALS: BP 126/82; BMI 48.3
== END 2024-11-28 08:07 | disposition home or self-care (01) ==
PROVIDERS: PCP Internal Medicine; Visit Provider Internal Medicine
DX: Z00.00 Encounter for general adult medical examination without abnormal findings (principal); M87.9 Osteonecrosis, unspecified; E66.01 Morbid (severe) obesity due to excess calories; Z68.42 Body mass index [BMI] 45.0-49.9, adult; M65.342 Trigger finger, left ring finger; L98.9 Disorder of the skin and subcutaneous tissue, unspecified

== ENCOUNTER → 2024-11-28 07:17 | Outpatient (BNVA) | payer BC, SELFPAY | PROVIDERS: PCP Internal Medicine; Visit Provider Internal Medicine | DX: Z00.00 Encounter for general adult medical examination without abnormal findings (principal); E66.01 Morbid (severe) obesity due to excess calories; Z68.42 Body mass index [BMI] 45.0-49.9, adult; M65.30 Trigger finger, unspecified finger; L98.9 Disorder of the skin and subcutaneous tissue, unspecified; M87.9 Osteonecrosis, unspecified | CPT/HCPCS: 96127 ==

== ENCOUNTER 2024-12-01 07:07 | Outpatient (RCR) | payer BC, SELFPAY ==
--- NOTE | 2024-11-15 09:39 | MHC.PT.EP ---
[facility] [place] Office [place] Office [place] Office [address] Pablo Kulkarni [address] [phone] F: [phone] F: [phone] F: [phone] F: [phone] Physical Therapy Plan of Care Date of Evaluation: 11/14/24 Date of Surgery: Diagnosis: Strain of muscle, fascia, and tendon of the posterior muscle group at thigh level, left thigh, initial encounter Strain of left hamstring Assessment: Pt is a pleasant and motivated 49yo F who presents to PT with L posterior knee and hamstring pain after slipping and falling on 10/14/24. Pt presents to PT with current impairments in pain, decreased ROM, decreased muscle length, soft tissue restrictions, and impaired gait. She is limited functionally by bending her knee, stair navigation, and bending. She is a good candidate for skilled PT in order to address current impairments to facilitate return to PLOF. She is recommended to be seen 2x/week for 4 weeks and will be reassessed at that time Frequency and Duration: The patient will be seen 2x/week for 4 weeks Short Term Goals: Pt will be I with HEP to promote self management of symptoms Pt will improve L knee flexion by at least 10 degrees Skilled Nursing Goals: Pt will ascend/descend 1 flight of stairs with reciprocal pattern with minimal to no pain or compensation Pt will demonstrate improvements in function as evidenced by statistically significant improvement in LEFI outcome measure Treatment Plan: Modalities to reduce pain, spasms and effusion. Manual therapy to restore motion and function. Therapeutic exercise to improve strength and flexibility. Neuromuscular re-education for posture and balance. Therapeutic activities to return to functional activities of daily living. Electronically signed by: Lorena Barnes, PT, DPT Please sign and return to therapist. Thank you for your referral.
--- NOTE | 2025-01-24 16:38 | MHC.PT.DC ---
[facility] [place] Office [place] Office [place] Office [address] Pablo Kulkarni 140 [facility] [phone] F: [phone] F: [phone] F: [phone] F: [phone] Physical Therapy Discharge Report Diagnosis: Strain of muscle, fascia, and tendon of the posterior muscle group at thigh level, left thigh, initial encounter Strain of left hamstring Date of Surgery: DOI 10/14/24 Date of Evaluation: 11/14/24 Date of Discharge: 01/24/25 Treatments to Date: 5 Cancellations to Date: No Shows to Date: Discharge Status: Discharge Summary: Pt was seen for PT from 11/14/24-12/01/24. She cancelled her remaining appointments due to low back pain and was scheduled to follow up with provider. She is being D/C from skilled PT as she has not attended or called to reschedule in > 30 days. Her current level of function is unknown at this time Electronically signed by: Lorena Barnes, PT, DPT Please sign and return to therapist. Thank you for your referral.
== END 2025-01-24 16:37 | disposition home or self-care (01) ==
LOC: HO.PT 07:07
PROVIDERS: PCP Internal Medicine; Visit Provider Physician Assistant
DX: S76.312D Strain of muscle, fascia and tendon of the posterior muscle group at thigh level, left thigh, subsequent encounter (principal)
CPT/HCPCS: 97110; 97140; 97162

== ENCOUNTER 2024-12-01 12:16 | Outpatient (AMB) | payer BC, SELFPAY ==
--- NOTE | 2024-12-01 12:31 | A.OFFVIS_ITS ---
Vital Signs 12/01/24 12:37 Height 5 ft 4 in Weight 281 lb BMI 48.2 Intake Visit Reasons: OV - left femur MRI review Intake Note: Loly is a 49 year old female who presents today for a MRI review of her left femur pain, DOI 10/14/24. MRI done in 11/03/24. Patient reports her pain is getting worse and she feels that her pain radiates up to her back. She mentions that she is going to PT but it is not helping her. Allergies acetaminophen [From Percocet] Allergy (Severe, Verified 12/01/24 12:37) Hives-only in percocet form-? tylenol allergy oxycodone [From Percocet] Allergy (Severe, Verified 12/01/24 12:37) Hives-only in percocet form-? tylenol allergy meat Allergy (Severe, Uncoded 11/28/24 07:47) Foot Ulcer PFSH Medical History (Updated 11/28/24 @ 08:06 by Aileen Isabel MD) Fatty liver Allergic rhinitis Transaminitis Vitamin D deficiency Hirsutism Morbid obesity VIRGILIO (obstructive sleep apnea) Disc degeneration, lumbar Spondylosis of lumbosacral spine with radiculopathy Arthritis Back pain Surgical History (Updated 11/28/24 @ 08:00 by Aileen Isabel MD) H/O laminectomy Hx of colonoscopy History of repair of ACL History of hysterectomy Family History (Updated 11/28/24 @ 07:55 by Aileen Isabel MD) Father History of kidney cancer Heart disease Paternal Uncle Throat cancer Paternal Grandfather Heart disease Sister Psoriatic arthritis Mother Diabetes mellitus Other Family history of osteoarthritis Mental health disorder Social History Housing: House Are you a primary critical care nurse practitioner to a significant other at home: No Do you presently have visiting nurse or other home services: No Alcohol intake: current Alcohol intake frequency: holidays/special occasions only Alcohol type: hard liquor Comment: uses cane on occasion Patient Tobacco Use Status: Never used Tobacco e-Cigarette/Vaping Use: Never Used Second Hand Smoke Exposure: No service: No 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al status: employed 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al exposures/hazards: No Cognitive needs: No Hearing needs: No Vision needs: Yes Review of Systems Const All systems reviewed & are unremarkable except as noted in HPI and below Physical Exam Vital Signs: BMI result Body Mass Index 48.2 Const General: cooperative, healthy appearing and no acute distress Resp Effort & Inspection: normal respiratory effort and able to speak in complete sentences Cardio Rate: regular rate Peripheral pulses: Peripheral pulses 2+ throughout Skin Lesions: no lesions Rashes: no rashes Extrem Other: Left knee: Tenderness to palpation along the hamstring posteriorly to the tibial attachment site. ROM is 0-90 degrees. Mild crepitus felt with ROM. NVI. Assessment & Plan Assessment & Plan (1) Back pain: Code(s): M54.9 - Dorsalgia, unspecified Category: Medical (2) Spondylosis of lumbosacral spine with radiculopathy: Code(s): M47.27 - Other spondylosis with radiculopathy, lumbosacral region Category: Medical (3) Disc degeneration, lumbar: Code(s): M51.36 - Other intervertebral disc degeneration, lumbar region Category: Medical (4) Bone infarct: Code(s): M87.9 - Osteonecrosis, unspecified Category: Medical Plan Ms. Kulwinder Gutierrez is a 49-year-old female who presents to office today for MRI review of the left lower extremity. She reports that she is continuing to have pain that radiates behind the left knee up into her lower back on both sides. She did have a Left L4-5 Laminotomy, Partial facetectomy and foraminotomy with use of microscope on 06/30/[address] Taveras. She reports that this pain is similar to what she was experiencing prior to surgery just les s intense. She has been attending physical therapy for her left knee with no relief. I recommended that the patient schedule a follow-up appointment with Dr. Taveras office for follow-up as she reports the symptoms or some earlier to what she was experiencing prior to her most recent surgery. She should start physical therapy for the left knee. Her MRI results were reviewed while in the office today. There is no surgical intervention needed at this time. Her follow up with Orthopedics will be p.r.n., sooner if needed. MR/MR femur LT wo con IMPRESSION: 1. 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 No associated soft tissue mass extension, gross marrow replacement, periostitis, or permeative/erosive bony change. Major differential includes a medullary bone infarct although the imaging appearance is not typical for that diagnosis given the peripheral location and bubbly involvement of cortex. 2. No evidence of pathologic fracture through this lesion. 3. No additional bony or soft tissue lesions seen. MR/MR Tibia LT wo Contrast IMPRESSION: 1. 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 Favor old infarct. 2. No additional lesions in the tibia or fibula. 3. Mild edema in the subcutaneous soft tissues. 4. Mild strain of the gastrocnemius muscle. Coding Level of Care Code Est Pt Level 4 (67382) Diagnoses Back pain M54.9 Spondylosis of lumbosacral spine with radiculopathy M47.27 Disc degeneration, lumbar M51.36 Bone infarct M87.9
[2024-12-01 12:37] VITALS: BMI 48.2
== END 2024-12-01 13:08 | disposition home or self-care (01) ==
PROVIDERS: PCP Internal Medicine; Visit Provider Physician Assistant
DX: M54.9 Dorsalgia, unspecified (principal); M47.27 Other spondylosis with radiculopathy, lumbosacral region; M51.369 Other intervertebral disc degeneration, lumbar region without mention of lumbar back pain or lower extremity pain; M87.9 Osteonecrosis, unspecified
CPT/HCPCS: 99214

== ENCOUNTER → 2024-12-01 12:16 | Outpatient (BNVA) | payer BC, SELFPAY | PROVIDERS: PCP Internal Medicine; Visit Provider Physician Assistant ==

== ENCOUNTER 2024-12-03 09:43 | Outpatient (REF) | payer BC, SELFPAY | END 2024-12-03 09:44 | disposition home or self-care (01) | LOC: HO.MAMMO 09:43 | PROVIDERS: Visit Provider Internal Medicine | DX: Z12.31 Encounter for screening mammogram for malignant neoplasm of breast (principal) | CPT/HCPCS: 77063; 77067 ==

== ENCOUNTER → 2024-12-03 09:45 | Outpatient (BNV) | payer BC, SELFPAY | PROVIDERS: Visit Provider Internal Medicine | DX: Z12.31 Encounter for screening mammogram for malignant neoplasm of breast (principal) | CPT/HCPCS: 77063; 77067 ==

== ENCOUNTER 2024-12-09 08:06 | Outpatient (AMB) | payer BC, SELFPAY ==
[2024-12-09 08:11] VITALS: BMI 48.2
--- NOTE | 2024-12-09 08:11 | MHC.OFFVIS ---
Vital Signs 12/09/24 08:11 Height 5 ft 4 in Weight 281 lb BMI 48.2 Handedness Right Intake Visit Reasons: NewProb-Left ring finger trigger, inj request Intake Note: Loly is a 49 year old right hand dominant female who presents today for a new problem visit for evaluation of left ring trigger finger. She is unable to extend her left ring finger as it is stuck in flexion. She states she usually runs hot water over her finger for relief how ever this is no longer helping her. If she tries to extend the left ring finger she gets extreme pain. She states this has been going on for over a month. Patient is interested in receiving an injection today. Allergies acetaminophen [From Percocet] Allergy (Severe, Verified 12/09/24 08:11) Hives-only in percocet form-? tylenol allergy oxycodone [From Percocet] Allergy (Severe, Verified 12/09/24 08:11) Hives-only in percocet form-? tylenol allergy meat Allergy (Severe, Uncoded 12/09/24 08:11) Foot Ulcer HPI HPI NewProb-Left ring finger trigger, inj request: Details: Loly is a 49 year old right hand dominant female who presents today for a new problem visit for evaluation of left ring trigger finger. She is unable to extend her left ring finger as it is stuck in flexion. She states she usually runs hot water over her finger for relief how ever this is no longer helping her. If she tries to extend the left ring finger she gets extreme pain. She states this has been going on for over a month. Patient is interested in receiving an injection today. Denies numbness or tingling. No other acute complaints or concerns at this time. [facility] Medical History Fatty liver Allergic rhinitis Transaminitis Vitamin D deficiency Hirsutism Morbid obesity VIRGILIO (obstructive sleep apnea) Disc degeneration, lumbar Spondylosis of lumbosacral spine with radiculopathy Arthritis Back pain Surgical History H/O laminectomy Hx of colonoscopy History of repair of ACL History of hysterectomy Family History Father History of kidney cancer Heart disease Paternal Uncle Throat cancer Paternal Grandfather Heart disease Sister Psoriatic arthritis Mother Diabetes mellitus Other Family history of osteoarthritis Mental health disorder Social History Housing: House Are you a primary client care manager to a significant other at home: No Do you presently have visiting nurse or other home services: No Alcohol intake: current Alcohol intake frequency: holidays/special occasions only Alcohol type: hard liquor Comment: uses cane on occasion Patient Tobacco Use Status: Never used Tobacco e-Cigarette/Vaping Use: Never Used Second Hand Smoke Exposure: No service: No 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al status: employed 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al exposures/hazards: No Cognitive needs: No Hearing needs: No Vision needs: Yes Review of Systems Const All systems reviewed & are unremarkable except as noted in HPI and below Physical Exam Vital Signs: BMI result Body Mass Index 48.2 Extrem Other: Patient is alert, oriented, and in no acute distress. Neuro: Normal sensation of the tips of all digits of the left hand at this time Vascular: Cap refill brisk Pain: Tenderness to palpation of the A1 laverne of the left ring finger Pain associated with locking and catching of the left ring finger ROM: There is visible and palpable locking and catching of the left ring finger in flexion Patient is able to flex and extend all other digits of the left hand fully and without difficulty Skin: No lacerations or abrasions. General: No ecchymosis, erythema, or evidence of infection. Psych: Appears grossly normal Affect normal Attitude cooperative Office Procedures Joint Inj/Aspir; Non-Pain Clin Trigger Finger Trigger Finger Ring Joint Injection: Left Ring Coding Procedure code (CPT) selection complete Assessment & Plan Assessment & Plan (1) Trigger finger, left ring finger: Code(s): M65.342 - Trigger finger, left ring finger Category: Medical Plan 1. Trigger finger, left ring finger Patient is educated about this condition Patient is educated about the treatment options available The risks and benefits of a steroid injection including but not limited to risk of damage to blood vessels, nerves, tendons, infection, skin bleaching, failure to improve symptoms, increased pain, and possible need for further injections or other intervention were discussed with the patient and the patient wishes to proceed with the steroid injection. Once consent was obtained, I aseptically prepped the area over the A1 laverne of the flexor tendon sheath of the left ring finger. I then injected the flexor tendon sheath with a combination of 1 mL of dexamethasone (4mg/ml), and 1% lidocaine. The patient tolerated the procedure well with no complications. If the patient continues to have locking and catching 4-6 weeks following this injection, they may call to schedule appointment to discuss alternative treatment options Follow-up prn Coding Level of Care Code Est Pt Level 3 (90577) Diagnoses Trigger finger, left ring finger M65.342 CPT Codes Trigger Finger ([id number])
== END 2024-12-09 08:33 | disposition home or self-care (01) ==
PROVIDERS: PCP Internal Medicine
DX: M65.342 Trigger finger, left ring finger (principal)
CPT/HCPCS: 20550; 99213

== ENCOUNTER → 2024-12-09 08:06 | Outpatient (BNVA) | payer BC, SELFPAY | PROVIDERS: PCP Internal Medicine | DX: M65.342 Trigger finger, left ring finger (principal); M79.605 Pain in left leg | CPT/HCPCS: 20550; J1100; J2003 ==

== ENCOUNTER 2024-12-09 08:36 | Outpatient (AMB) | payer BC, SELFPAY ==
--- NOTE | 2024-12-09 09:08 | A.SPINEOV_ITS ---
Intake Visit Reasons: LBP & raímrez hip pain injury 10/14/24 Intake Note: Ms. Kulwinder Gutierrez is here today c/o low back pain and bilateral hip pain s/p fall. Operations Dispatcher Required: No Allergies acetaminophen [From Percocet] Allergy (Severe, Verified 12/09/24 08:11) Hives-only in percocet form-? tylenol allergy oxycodone [From Percocet] Allergy (Severe, Verified 12/09/24 08:11) Hives-only in percocet form-? tylenol allergy meat Allergy (Severe, Uncoded 12/09/24 08:11) Foot Ulcer Assessment & Plan Assessment & Plan (1) Left leg pain: Code(s): M79.605 - Pain in left leg Category: Medical Plan Mrs Miramontes is a patient known to us from left L5 decompression done last year. She comes today with a new problem. She was getting out of a shower on October 14 and the towel that was on the floor slipped when she put her foot on she fell down to the ground. She suspect she may have passed out but she is not sure she does not recall much. Since that time however she has had pain in her left knee as well as pain going up the back of her hamstring on the left side. She also has Back pain and bilateral hip pain. No tingling numbness or weakness. She has been taking ibuprofen, occasional oxycodone. She underwent physical therapy after she saw Orthopedics and there was not much help there. She is continuing to go to the gym and she can do the upright bicycling but the elliptical is very uncomfortable. She continues to work although it is uncomfortable because she sits all day. Apparently her imaging of her knee was not revealing of any specific problem that might be causing her issue so she was sent down to us for evaluation. On my exam her strength is full but she is a little guarded with movements. Reflexes diminished bilaterally at the patella and the Achilles. I am not sure if the symptoms are radicular, but in light of the fact that it has been two months and they have not improved at all, I will get a lumbar MRI with and without gadolinium to evaluate for possible herniated disc. I can call her with the results of that. Total amount of time spent in this visit was 20 minutes in discussion of symptoms, ordering lumbar imaging and subsequent plan of care Jeb Taveras MD,PhD [facility] Orders: Orders MR lumbar spine wo/w con Today M79.605 - Pain in left leg Coding Level of Care Code Est Pt Level 3 (76527) Diagnoses Left leg pain M79.605
== END 2024-12-09 09:15 | disposition home or self-care (01) ==
PROVIDERS: PCP Internal Medicine; Visit Provider Physician Assistant
DX: M79.605 Pain in left leg (principal)
CPT/HCPCS: 99213

== ENCOUNTER → 2024-12-20 15:02 | Outpatient (BNV) | payer BC, SELFPAY | PROVIDERS: PCP Internal Medicine; Visit Provider Radiology Diagnostic Radiology | DX: M79.605 Pain in left leg (principal) | CPT/HCPCS: 72158 ==

== ENCOUNTER 2025-01-27 15:29 | Outpatient (AMB) | payer BC, SELFPAY ==
--- NOTE | 2025-01-27 15:39 | MHC.OFFWIV ---
Intake Vital Signs 01/27/25 15:41 Weight 280 lb BP 118/62 Blood Pressure Location Rt brachial Position Sitting Pulse 59 Pulse Source Pulse Oximeter Pulse Oximetry (%) 98 Oxygen Delivery Method Room Air Intake Visit Reasons: EP High BP/headache/dizzy Intake Note: Patient here for elevated BP, headaches. Patient Tobacco Use Status: Never used Tobacco Allergies acetaminophen [From Percocet] Allergy (Severe, Verified 01/27/25 15:40) Hives-only in percocet form-? tylenol allergy oxycodone [From Percocet] Allergy (Severe, Verified 01/27/25 15:40) Hives-only in percocet form-? tylenol allergy meat Allergy (Severe, Uncoded 01/27/25 15:40) Foot Ulcer HPI HPI Comments History of Present Illness Details History of Present Illness - The patient is a 50-year-old female presenting with elevated BPs and episodic dizziness with headaches. - Intermittent headaches and off-balance , not room spinning dizziness are reported, with some left sided chest pain that does not radiate. she cannot describe the pain but denies associated nausea, sweating, left shoulder pain, left arm numbness or tingling or left arm pain or neck pain at the time of the chest pain. She also states she does not have abdominal pain that radiates to her back - patient states the headaches and dizziness sometimes happened together and sometimes do not, she thinks they last more than a few minutes but less than an hour, nothing seems to provoke either symptom and they both spontaneously resolve. - Home and clinic blood pressure readings show variability, with most readings in the normal range however she did have 1 reading systolic in the 150s. She is unsure if she had chest pain, SNEED or dizziness at the time of these reading. - She also has chest pain episodes noted as dull and lasting more than an hour; no radiation. 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 She also uses her 's blood pressure machine at home to get readings. She tells me he has hypertension so they both are careful to follow a low to no salt diet. - she does report some ear fullness the other day but no pain in the ear fullness has resolved - she reports she is asymptomatic at the visit today, she does not have any chest pain, dizziness or headaches. - she has not taken any medications to resolve her symptoms, they spontaneously resolve Physical Exam General: Cooperative, healthy appearing, comfortable, no acute distress and well developed Orientation: Patient oriented x3 Limitations: No limitations Head: Normal to inspection Ears: Hearing grossly normal bilaterally, TM's with cerumen impaction bilaterally Nose: Normal external nose present Face and sinus: Normal facial exam Eyes: Appearance normal, both eyes and all related structures Neck: Normal visual inspection and Yes full ROM Respiratory: Normal respiratory effort and able to speak in complete sentences. Skin: No rashes or lesions noted Neuro: Patient oriented x3 Extremities: Normal to inspection [facility] Medical History Fatty liver Allergic rhinitis Transaminitis Vitamin D deficiency Hirsutism Morbid obesity VIRGILIO (obstructive sleep apnea) Disc degeneration, lumbar Spondylosis of lumbosacral spine with radiculopathy Arthritis Back pain Surgical History H/O laminectomy Hx of colonoscopy History of repair of ACL History of hysterectomy Family History Father History of kidney cancer Heart disease Paternal Uncle Throat cancer Paternal Grandfather Heart disease Sister Psoriatic arthritis Mother Diabetes mellitus Other Family history of osteoarthritis Mental health disorder Social History Housing: House Are you a primary healthcare network pricing consultant to a significant other at home: No Do you presently have visiting nurse or other home services: No Alcohol intake: current Alcohol intake frequency: holidays/special occasions only Alcohol type: hard liquor Comment: uses cane on occasion Patient Tobacco Use Status: Never used Tobacco e-Cigarette/Vaping Use: Never Used Second Hand Smoke Exposure: No service: No 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al status: employed 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al exposures/hazards: No Cognitive needs: No Hearing needs: No Vision needs: Yes Review of Systems Const All systems reviewed & are unremarkable except as noted in HPI and below Office Procedures Cerumen Removal Details: Able to remove cerumen completely from the right ear but only partially from the left ear From which ear canal was the cerumen removed: bilateral Removal: otoscope w/curette Notes: patient tolerated procedure well and no complications [id number] Wax Removal by Spoon/Curette Assessment & Plan Assessment & Plan (1) Dizziness: Code(s): R42 - Dizziness and giddiness Plan: VSS, pt well appearing, removed cerumen in right ear with curette, could not remove completely in left ear. PT to use debrox drops, this could be contributing to her dizziness. Patient is currently asymptomatic, blood pressure is currently completely normal. There is no indication for me to start any antihypertensives today or send her to the emergency room. We did review ensuring she is using a low-salt/no salt diet. The episodic dizziness and headaches are possibly related to blood pressure fluctuations and may be aggravated by bilateral earwax impaction. The patient is also to maintain a thorough log of blood pressure readings and symptomatology for her primary care provider's evaluation in the coming weeks. Recommended she log it in the morning, the evening in any time she is symptomatic. In the meantime, education regarding emergent symptoms requiring ER evaluation, such as chest pain with additional worrying symptoms, was provided. Patient was informed and verbally consented to the use of an ambient scribe for clinic note documentation during this visit. (2) Generalized headaches: Code(s): R51.9 - Headache, unspecified Plan: as above (3) Cerumen impaction: Code(s): H61.20 - Impacted cerumen, unspecified ear Qualifiers: Laterality: bilateral Qualified Code(s): H61.23 - Impacted cerumen, bilateral Plan: as above Coding Level of Care Code Est Pt Level 4 (94180) Diagnoses Dizziness R42 Generalized headaches R51.9 Bilateral impacted cerumen H61.23 Laterality: bilateral CPT Codes Office Procedure - CPT: 59525-Ers Wax Removal by Spoon/Curette ([id number])
[2025-01-27 15:41] VITALS: BP 118/62; PULSE 59; O2SAT 98
--- OUTSIDE RECORDS SUMMARY | 2025-01-27 16:37 | XMS_ITS | Patient Health Record ---
Author Organization [facility] Address [address] [place] [address] Care Team Providers Care Registered Travel Nurse Name Role Phone Aileen Verma MD Primary Care Provider Unavail able Zheng Jone Unavailable [phone] Allergies Allergen (clinical drug ingredient) Drug/Non Drug Allergy documented on EMR Reaction Allergy Type Onset Date Status acetaminophen / oxycodone Percocet Itching Drug Allergy Active Reason For Referral No Information Medications Medication SIG (Take, Route, Fr equency, Duration) Notes Start Date End Date Status oxyCODONE HCl 10 MG 1 tablet as needed Orally 05/17 Active Social History Tobacco Use: Social History Observation Description Date Details (start date - stop date) Never Smoker NA - NA Tobacco Use/Smoking Question Answer Notes Are you a: nonsmoker Additional Findings: Tobacco Non-User Current no n-smoker Alcohol Screen Question Answer Notes Did you have a drink containing alcohol in the p ast year? Yes Points 0 Interpretation Negative Tobacco use other than smoking: Question Answer Notes Are you an other tobacco user? No Problems Problem Type SNOMED Code ICD Code Onset Dates Problem Status W/U Status Risk Notes Problem Mononeuropathy of lower limb (018377609) Neuritis of left foot (G57.92) Active confirmed Plan Of Treatment Pending Test Test Name Order Date X ray : Foot, left 3V 07/21/2023 Insurance Providers Payer Name Payer Address Payer Phone Subscriber Number Group Number Insured Name Patient Relationship to Insured Coverage Start Date Coverage End Date [facility] [address] [facility] [id number] Herman Martinez Spouse - patient is the spouse of the insured Medical (General) History Medical History History ICD Code Arthritis Chicken pox Sleep apnea Surgical History Surgery Date(Month/Year) hysterectomy [facility] Repair 2018
== END 2025-01-27 16:14 | disposition home or self-care (01) ==
PROVIDERS: PCP Internal Medicine; Visit Provider Physician Assistant
DX: R42 Dizziness and giddiness (principal); R51.9 Headache, unspecified; H61.23 Impacted cerumen, bilateral

== ENCOUNTER → 2025-01-27 15:29 | Outpatient (BNVA) | payer BC, SELFPAY | PROVIDERS: PCP Internal Medicine; Visit Provider Physician Assistant | DX: R51.9 Headache, unspecified (principal); H61.23 Impacted cerumen, bilateral; R42 Dizziness and giddiness | CPT/HCPCS: 69210 ==

== ENCOUNTER 2025-02-10 08:40 | Outpatient (AMB) | payer BC, SELFPAY ==
[2025-02-10 08:42] VITALS: BP 122/74; PULSE 72; RESP 16; TEMP 37.5; O2SAT 96
--- NOTE | 2025-02-10 08:42 | MHC.PC.OV ---
Vital Signs 02/10/25 08:42 Height 5 ft 4 in BMI Reason not done Patient refused/unable BP 122/74 Blood Pressure Location Lt brachial Position Sitting Respiration 16 Pulse 72 Pulse Source Pulse Oximeter Temp 99.5 F Temp Source Oral Pulse Oximetry (%) 96 Oxygen Delivery Method Room Air Intake Visit Reasons: follow up Plating Foreman Required: No Accompanied by: Self / Same As Patient Allergies acetaminophen [From Percocet] Allergy (Severe, Verified 02/10/25 08:43) Hives-only in percocet form-? tylenol allergy oxycodone [From Percocet] Allergy (Severe, Verified 02/10/25 08:43) Hives-only in percocet form-? tylenol allergy meat Allergy (Severe, Uncoded 02/10/25 08:43) Foot Ulcer Medication List - Last Reconciled 02/10/25 by MARLEE May cetirizine 10 mg PO DAILY PRN cholecalciferol (vitamin D3) 50 mcg PO QAM diclofenac sodium 1% (Aleve (diclofenac)) 2 grams topical QID PRN garlic 200 mg PO QAM brmoiezf-cni-BJ-lycopen-lutein 0.4 mg-300 mcg- 250 mcg (Centrum Silver) 1 tab PO QAM oxybutynin chloride 10%(100mg/gram) (Gelnique) 1 g topical DAILY oxycodone 5 mg PO Q6-8H PRN pentoxifylline ER 400 mg PO TID johjrqgy-tiif-gskjo-oreg-capry 100 mg-150 mg- 50 mg-150 mg 1 cap PO QAM ubidecarenone-omega 3-vit E 25-150-200 mg-mg-unit (Co B-62-Rptutew E-Fish Oil) 1 cap PO QAM vitamin B complex (B Complex-Vitamin B12 tablet) 1 tab PO DAILY vitamin E (dl, acetate) 180 mg PO QAM Tobacco use date assessed: 02/10/25 Dental Screening Dental Screen Date: 02/10/25 Did you have a dental visit in the last 12 months?: Yes Did you have a dental problem in the last 6 months where you did not have access to dental care?: No Was dental information given to patient?: Patient has dentist HPI follow up HPI Details Patient is a 50-year-old female presenting with the following up for concern of high blood pressure, chest pain and dizziness reports that her blood pressure was higher than normal reports that she was having headaches and chest pain She denies having a history of headache and reports that she know that it was job related because someone said something on the job and she was not able to respond in order to keep her job The patient reports that she had to go for walks, along with going to the gym on the job in order to contain herself She reports that she has not taken the hydrochlorothiazide [address] Lechuga sent her She is presenting today to make sure her blood pressure are back to normal Patient denies shortness of breath, chest, heart palpitation and dizziness [facility] Medical History Fatty liver Allergic rhinitis Transaminitis Vitamin D deficiency Hirsutism Morbid obesity VIRGILIO (obstructive sleep apnea) Disc degeneration, lumbar Spondylosis of lumbosacral spine with radiculopathy Arthritis Back pain Surgical History H/O laminectomy Hx of colonoscopy History of repair of ACL History of hysterectomy Family History Father History of kidney cancer Heart disease Paternal Uncle Throat cancer Paternal Grandfather Heart disease Sister Psoriatic arthritis Mother Diabetes mellitus Other Family history of osteoarthritis Mental health disorder Social History Housing: House Are you a primary early breastfeeding care specialist to a significant other at home: No Do you presently have visiting nurse or other home services: No Alcohol intake: current Alcohol intake frequency: holidays/special occasions only Alcohol type: hard liquor Comment: uses cane on occasion Patient Tobacco Use Status: Never used Tobacco e-Cigarette/Vaping Use: Never Used Second Hand Smoke Exposure: No service: No 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al status: employed 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 1. Little interest or pleasure in doing things: not at all 2. Feeling down, depressed, or hopeless: not at all 3. Trouble falling or staying asleep, or sleeping too much: not at all 4. Feeling tired or having little energy: not at all 5. Poor appetite or overeating: not at all 6. Feeling bad about yourself - or that you are a failure or have let yourself or your family down: not at all 7. Trouble concentrating on things, such as reading the newspaper or watching television: not at all 8. Moving or speaking so slowly that other people could have noticed. Or the opposite - being so fidgety or restless that you have been moving around a lot more than usual: not at all 9. Thoughts that you would be better off or of hurting yourself in some way: not at all Total score: 0 Depression Screening Interpretation: Negative Depression Screening Done: Yes Source: Developed by Drs. Viktor Ching, Lola Martin, Rosas Yu and colleagues, with an educational harris from [employer]. Thrive Questionnaire Date Thrive assessed: 02/10/25 I am a: Patient What is your living situation today?: I have a steady place to live Within the past 12 months, did the food you bought not last and you didn't have the money to get more?: Never true Within the past 12 months, did you worry whether your food would run out before you got money to buy more?: Never true Do you have trouble paying for medicines?: No Do you have trouble getting transportation to medical appointments?: No Do you have trouble paying your heating and electricity bill?: No Do you have trouble taking care of your child, family member or friend?: No Do you have trouble with day-to-day activities such as bathing, preparing meals, shopping, managing finances, etc.?: No Are you currently unemployed and looking for a job?: No Are you interested in more education?: No Please select the resources that you would like help with: None Currently or been in a relationship where the following occur: No concerns reported THRIVE Score: 0 AUDIT C Alcohol Use Questionnaire (AUDIT-C) 1. How often do you have a drink containing alcohol?: Monthly or less 2. How many drinks containing alcohol do you have on a typical day when you are drinking?: 1 or 2 3. How often do you have six or more drinks on one occasion?: Never Total Score: 1 Score Reviewed/Action Taken: No ASHER-7 AMB Questionnaire ASHER-7 Date ASHER - 7 assessed: 02/10/25 Feeling nervous, anxious, or on edge: 0 = Not at all Not being able to stop or control worryin = Not at all Worrying too much about different things: 0 = Not at all Trouble relaxin = Not at all Being so restless that it is hard to sit still: 0 = Not at all Becoming easily annoyed or irritable: 0 = Not at all Feeling afraid as if something awful might happen: 0 = Not at all Total ASHER-7 score (0-4 normal; 5-9 mild; 10-14 moderate; 15-21 severe): 0 Source: Developed by Drs. Viktor Ching, Lola Martin, Rosas Yu and colleagues, with an educational harris from [employer]. Review of Systems Const Denies headache(s) Eyes Denies loss of vision ENT Denies vertigo, Denies dizziness, Denies headache(s) and Denies sore throat Card Denies chest pain, Denies leg edema and Denies lightheadedness Resp Denies cough, Denies hemoptysis and Denies wheezing GI Denies abdominal pain, Denies melena, Denies constipation, Denies diarrhea and Denies vomiting Denies urinary frequency, Denies dysuria and Denies urinary urgency Musc Denies arthralgias, Denies joint swelling, Denies numbness and Denies tingling Neuro Denies Abnormal speech present, Denies behavioral changes, Denies vertigo, Denies dizziness, Denies headache(s), Denies loss of vision, Denies memory loss, Denies numbness and Denies tingling Psych Denies anxiety, Denies behavioral changes, Denies depression, Denies memory loss and Denies panic attacks Billy/Lymph Denies easy bleeding and Denies easy bruising Aller/Immun Denies wheezing Physical exam (Primary Care) Vital Signs: Oxygen Delivery Method Room Air 02/10/25 08:42 Tobacco/Smoking Status: Tobacco use Status Tobacco use date assessed 11/28/24 12/01/24 13:03 Patient Tobacco Use Status Never used Tobacco 01/27/25 15:43 e-Cigarette/Vaping Use Never Used 12/01/24 13:03 Depression Screening Interpretation: Negative Thrive Assessment: Date of Thrive Assessment Date Thrive assessed 11/21/24 12/09/24 08:07 Currently or been in a relationship where the following occur: No concerns reported Const General: healthy appearing, no acute distress, alert and awake Nutritional Appearance: well nourished Orientation/consciousness: oriented to person, oriented to place and oriented to time HENMT Ears: TM's normal bilaterally General nose exam: Normal nasal mucous membranes and turbinates present Eyes Conjunctivae: conjunctivae normal Sclerae: sclerae normal Pupils: Equal, round and reactive pupils present Neck Neck: Yes no lymphadenopathy and Yes no JVD Thyroid: Thyroid normal Carotids: no bruits Resp Effort & Inspection: normal respiratory effort and not tachypneic Auscultation: no crackles, no rales, no rhonchi and no wheezes Cardio Rate: regular rate Rhythm: regular rhythm Heart sounds: no murmurs and normal S1 and S2 GI Palpation (GI): Soft to palpation, nontender, no hepatomegaly and no splenomegaly Auscultation: normal bowel sounds Skin General skin exam: no rashes or lesions noted and dry skin Neuro General: oriented to person, oriented to place and oriented to time Cranial nerves: Yes Equal, round and reactive pupils present Speech: No Abnormal speech present Gait exam (Neuro): Normal gait present Motor exam (neuro): no tremor noted Extrem Right upper extremity: full ROM Left upper extremity: full ROM Right lower extremity: full ROM; no edema Left lower extremity: full ROM; no edema Psych Mental Status: mental status grossly normal Speech and movement: Normal speech and movement present Affect: normal affect Attitude: cooperative Thought process: Normal thought process present Coding Level of Care Code Est Pt Level 3 (25393) Diagnoses Elevated blood pressure reading without diagnosis of hypertension R03.0 Time Spent (min) 29 Assessment & Plan Assessment & Plan (1) Elevated blood pressure reading without diagnosis of hypertension: Code(s): R03.0 - Elevated blood-pressure reading, without diagnosis of hypertension Category: Medical Plan: VSS. Denies chest pain, headaches and dizziness. Reports that she has not taken hydrochlorothiazide [address] Lechuga ordered. This medication was discontinued. Reinforced low-sodium diet and continue to monitor blood pressure. Patient to contact office if symptoms reoccur.
== END 2025-02-10 09:09 | disposition home or self-care (01) ==
LOC: HO.HMCH 08:41
PROVIDERS: PCP Internal Medicine
DX: R03.0 Elevated blood-pressure reading, without diagnosis of hypertension (principal)

== ENCOUNTER → 2025-02-10 08:40 | Outpatient (BNVA) | payer BC, SELFPAY | PROVIDERS: PCP Internal Medicine ==

== ENCOUNTER 2025-02-21 12:58 | Outpatient (AMB) | payer BC, SELFPAY ==
--- NOTE | 2025-02-21 13:00 | MHC.OFFVIS ---
Vital Signs 02/21/25 13:02 Height 5 ft 4 in Weight 280 lb BMI 48.1 Intake Visit Reasons: OV- Left RF trigger finger, discuss sx Intake Note: Loly is a 49 year old right hand dominant female who presents today for a new problem visit for evaluation of left ring trigger finger. Patient reports that her finger is getting worse. She has tried and failed finger splints. States injection did not help, and would like to discuss surgical options. Allergies acetaminophen [From Percocet] Allergy (Severe, Verified 02/21/25 13:09) Hives-only in percocet form-? tylenol allergy oxycodone [From Percocet] Allergy (Severe, Verified 02/21/25 13:09) Hives-only in percocet form-? tylenol allergy meat Allergy (Severe, Uncoded 02/21/25 13:09) Foot Ulcer HPI HPI OV- Left RF trigger finger, discuss sx: Details: Loly is a 49 year old right hand dominant female who presents today for a new problem visit for evaluation of left ring trigger finger. Patient reports that her finger is getting worse. She has tried and failed finger splints. States injection did not help, and would like to discuss surgical options. [facility] Medical History Fatty liver Allergic rhinitis Transaminitis Vitamin D deficiency Hirsutism Morbid obesity VIRGILIO (obstructive sleep apnea) Disc degeneration, lumbar Spondylosis of lumbosacral spine with radiculopathy Arthritis Back pain Surgical History H/O laminectomy Hx of colonoscopy History of repair of ACL History of hysterectomy Family History Father History of kidney cancer Heart disease Paternal Uncle Throat cancer Paternal Grandfather Heart disease Sister Psoriatic arthritis Mother Diabetes mellitus Other Family history of osteoarthritis Mental health disorder Social History Housing: House Are you a primary inpatient care manager rn to a significant other at home: No Do you presently have visiting nurse or other home services: No Alcohol intake: current Alcohol intake frequency: holidays/special occasions only Alcohol type: hard liquor Comment: uses cane on occasion Patient Tobacco Use Status: Never used Tobacco e-Cigarette/Vaping Use: Never Used Second Hand Smoke Exposure: No service: No 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al status: employed 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al exposures/hazards: No Cognitive needs: No Hearing needs: No Vision needs: Yes Review of Systems Const All systems reviewed & are unremarkable except as noted in HPI and below Physical Exam Vital Signs: BMI result Body Mass Index 48.1 Extrem Other: Patient is alert, oriented, and in no acute distress. Neuro: Normal sensation of the tips of all digits of the left hand at this time Vascular: Cap refill brisk Pain: Tenderness to palpation of the A1 laverne of the left ring finger Pain associated with locking and catching of the left ring finger ROM: There is visible and palpable locking and catching of the left ring finger in flexion Patient is able to flex and extend all other digits of the left hand fully and without difficulty Skin: No lacerations or abrasions. General: No ecchymosis, erythema, or evidence of infection. Psych: Appears grossly normal Affect normal Attitude cooperative Assessment & Plan Assessment & Plan (1) Trigger finger, left ring finger: Code(s): M65.342 - Trigger finger, left ring finger Category: Medical Plan 1. Trigger finger, left ring finger I educated the patient about the condition. I discussed both operative and nonoperative treatment options. The patient would like to proceed with surgery. The risks and benefits of operative treatment were discussed with the patient and the patient wishes to proceed with surgery. These risks include, but are not limited to, risk of damage to blood vessels, nerves, tendons, infection, recurrence, incomplete relief of preoperative symptoms, persistent pain, possible need for further surgery, and the risks associated with regional blocks and/or anesthesia. Plan is to take the patient to the operating room at some point in the next few weeks for the following procedures: 1. Left ring finger trigger release under local All of the preoperative paperwork including the consent was discussed today. All of the patient's questions were answered in the clinic today. The patient understands that they will be in contact with our surgical technician to discuss scheduling their procedure. Patient denies diabetes, blood thinners, asthma, heart issues, lung issues, kidney issues, or current smoking. Coding Level of Care Code Est Pt Level 4 (01715) Diagnoses Trigger finger, left ring finger M65.342
[2025-02-21 13:02] VITALS: BMI 48.1
--- OUTSIDE RECORDS SUMMARY | 2025-02-21 15:42 | XMS_ITS | Patient Health Record ---
Author Organization [facility] Address [address] [place] [address] Care Team Providers Care Wellness Program Coordinator Name Role Phone Aileen Verma MD Primary Care Provider Unavail able Zheng Jone Unavailable [phone] Allergies Allergen (clinical drug ingredient) Drug/Non Drug [...] Risk Notes Problem Mononeuropathy of lower limb (184634675) Neuritis of left foot (G57.92) Active confirmed Plan Of Treatment Pending Test Test Name Order Date X ray : Foot, left 3V 07/21/2023 Insurance Providers Payer Name Payer Address Payer Phone Subscriber Number Group Number Insured Name Patient Relationship to Insured Coverage Start Date Coverage End Date [facility] [address] [facility] [id number] Herman Martinez Spouse - patient is the spouse of the insured Medical (General) History Medical History History ICD Code Arthritis Chicken pox Sleep apnea Surgical History Surgery Date(Month/Year) hysterectomy A.C.L. Repair 2018
== END 2025-02-21 13:29 | disposition home or self-care (01) ==
LOC: HO.HOS 12:58
PROVIDERS: PCP Internal Medicine
DX: M65.342 Trigger finger, left ring finger (principal)
CPT/HCPCS: 99214

== ENCOUNTER 2025-03-02 15:50 | Outpatient (AMB) | payer BC, SELFPAY ==
[2025-03-02 15:54] VITALS: BP 124/77; PULSE 79; O2SAT 100
--- NOTE | 2025-03-02 15:54 | MHC.OFFVIS ---
Vital Signs 03/02/25 15:54 Height 5 ft 4 in BP 124/77 Blood Pressure Location Rt brachial Position Sitting Pulse 79 Pulse Source Doppler Pulse Oximetry (%) 100 Oxygen Delivery Method Room Air Intake Visit Reasons: lucien Intake Note: Patient is here for follow up on LUCIEN, patient is using her CPAP machine Allergies acetaminophen [From Percocet] Allergy (Severe, Verified 03/02/25 16:09) Hives-only in percocet form-? tylenol allergy oxycodone [From Percocet] Allergy (Severe, Verified 03/02/25 16:09) Hives-only in percocet form-? tylenol allergy meat Allergy (Severe, Uncoded 03/02/25 16:09) Foot Ulcer Medication List - Last Reconciled 03/02/25 by Noé Blankenship MD cetirizine 10 mg PO DAILY PRN cholecalciferol (vitamin D3) 50 mcg PO QAM diclofenac sodium 1% (Aleve (diclofenac)) 2 grams topical QID PRN garlic 200 mg PO QAM aotbftot-hpl-DG-lycopen-lutein 0.4 mg-300 mcg- 250 mcg (Centrum Silver) 1 tab PO QAM oxybutynin chloride 10%(100mg/gram) (Gelnique) 1 g topical DAILY oxycodone 5 mg PO Q6-8H PRN pentoxifylline ER 400 mg PO TID wwucovqj-zlzx-auyum-oreg-capry 100 mg-150 mg- 50 mg-150 mg 1 cap PO QAM ubidecarenone-omega 3-vit E 25-150-200 mg-mg-unit (Co B-04-Cfmkwux E-Fish Oil) 1 cap PO QAM vitamin B complex (B Complex-Vitamin B12 tablet) 1 tab PO DAILY vitamin E (dl, acetate) 180 mg PO QAM Do you need a note to return to daycare/school/sports/work: No HPI HPI lucien: Details: THIS 50 YEARS OLD FEMALE IS MORBIDLY OBESE. SHE HAS SEVERE OBSTRUCTIVE SLEEP APNEA WHICH IS EFFECTIVELY TREATED WITH USE OF CPAP. SHE USES CPAP VERY REGULARLY AND SLEEPS UP TO 8 HOURS EVERY NIGHT. DENIES ANY PROBLEM WITH THE MASK OR CPAP DEVICE SHE DOES HAVE MILD NASAL CONGESTION OFF AND ON AND IS TREATED WITH CETIRIZINE P.R.N.. SHE DENIES COUGH OR WHEEZING. DURING HER WORK SHE IS SITTING MOST OF THE TIME, WHOLE DAY , AND GETS SOME DEPENDENT. EDEMA OF THE LEGS PFSH Medical History Fatty liver Allergic rhinitis Transaminitis Vitamin D deficiency Hirsutism Morbid obesity LUCIEN (obstructive sleep apnea) Disc degeneration, lumbar Spondylosis of lumbosacral spine with radiculopathy Arthritis Back pain Surgical History H/O laminectomy Hx of colonoscopy History of repair of ACL History of hysterectomy Family History Father History of kidney cancer Heart disease Paternal Uncle Throat cancer Paternal Grandfather Heart disease Sister Psoriatic arthritis Mother Diabetes mellitus Other Family history of osteoarthritis Mental health disorder Social History Housing: House Are you a primary career technology teacher to a significant other at home: No Do you presently have visiting nurse or other home services: No Alcohol intake: current Alcohol intake frequency: holidays/special occasions only Alcohol type: hard liquor Comment: uses cane on occasion Patient Tobacco Use Status: Never used Tobacco e-Cigarette/Vaping Use: Never Used Second Hand Smoke Exposure: No service: No 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al status: employed 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al exposures/hazards: No Cognitive needs: No Hearing needs: No Vision needs: Yes Review of Systems Const All systems reviewed & are unremarkable except as noted in HPI and below Denies snoring Eyes Reports no additional complaints ENT Reports no additional complaints Card Denies chest pain, Denies irregular heart rhythm and Denies leg edema Resp Reports no additional complaints, Denies cough, Denies snoring and Denies wheezing GI Reports no additional complaints Reports no additional complaints Musc Reports back pain Skin/Breast Reports system reviewed and no additional complaints, except as documented Neuro Reports no additional complaints Psych Reports no additional complaints Aller/Immun Denies wheezing Physical Exam Vital Signs: Last Vital Signs Pulse 79 03/02/25 15:54 BP 124/77 03/02/25 15:54 Pulse Ox 100 03/02/25 15:54 Oxygen Delivery Method Room Air 03/02/25 15:54 Const General: healthy appearing (EXCEPT FOR BEING OVERWEIGHT), comfortable, no acute distress, alert and awake Orientation/consciousness: patient oriented x3 HEENT Head: Yes normal to inspection General nose exam: No nasal polyps present and No nasal discharge present Face and sinus: Yes sinuses nontender Mouth: oropharynx normal Throat: Yes posterior oropharynx normal Eyes General: appearance normal, both eyes and all related structures Neck Neck: Yes normal visual inspection, Yes no lymphadenopathy, Yes trachea midline and Yes no JVD Thyroid: Thyroid normal Chest Chest palpation & inspection: normal inspection of the chest, normal palpation of entire chest wall and no tenderness Resp Effort & Inspection: normal respiratory effort and no cough Auscultation: clear to auscultation bilaterally and no wheezes Percussion: percussion normal Cardio Palpation: normal PMI Rate: regular rate Rhythm: regular rhythm Heart sounds: no gallops and no murmurs Peripheral pulses: Peripheral pulses 2+ throughout GI Palpation (GI): Soft to palpation, nontender, No hepatosplenomegaly present, no masses and Other GI palpation findings present Auscultation: normal bowel sounds Back/Spine/Pelvis Thoracic/Lumbar Spine: thoracic and lumbar spine normal to inspection and thoraco-lumbar ROM limited Skin General skin exam: no rashes or lesions noted Neuro General: patient oriented x3 and no focal motor deficits Cranial nerves: Yes CN's II-XII intact bilaterally Extrem General: Yes normal to inspection, Yes no clubbing, cyanosis or edema and Yes no calf tenderness Psych Appearance: grossly normal and well kempt Speech and movement: Normal speech and movement present Assessment & Plan Assessment & Plan (1) Morbid obesity: Comment: PATIENT IS WELL AWARE OF THE FACT THAT SHE HAS MORBID OBESITY. AND SHE DOES HAVE INTENTION TO LOSE WEIGHT , HOWEVER SHE HAS NOT SUCCEEDED SO FAR. CLAIMS THAT SHE HAD A FALL AND HAS BACK PAIN AND PAIN IN THE LEGS AND IS NOT ABLE TO DO MUCH EXERCISE. Code(s): E66.01 - Morbid (severe) obesity due to excess calories Category: Medical Plan: AGAIN DISCUSSED ABOUT THE NEED TO LOSE WEIGHT. SHE NEEDS TO JOIN WEIGHT MANAGEMENT PROGRAM BUT DOES NOT HAVE TIME. ADVISED TO CUT DOWN THE CALORIES INTAKE, MUCH SHE CAN. (2) LUCIEN (obstructive sleep apnea): Comment: SEVERE OBSTRUCTIVE SLEEP APNEA WITH TOTAL SLEEP TIME AHI 30. ON CPAP THERAPY, NASAL PILLOWS ,A-PAP MODE , PRESSURE SETTING 6-20 CM. VERY HAPPY AND 100% COMPLIANT. NO ISSUES WITH THE MASK OR CPAP MACHINE. Code(s): G47.33 - Obstructive sleep apnea (adult) (pediatric) Category: Medical Plan: COMMENDED FOR GOOD COMPLIANCE AND ADVISED TO KEEP USING THE CPAP EVERY NIGHT REGULARLY (3) Cough: Comment: COUGH IS MILD, INTERMITTENT, MOSTLY RELATED TO POSTNASAL DRIP. Code(s): R05.9 - Cough, unspecified Category: Medical Plan: ADVISED TO USE CITRUS IN 10 MG P.R.N. Coding Level of Care Code Est Pt Level 3 (02029) Diagnoses Morbid obesity E66.01 LUCIEN (obstructive sleep apnea) G47.33 Cough R05.9
--- OUTSIDE RECORDS SUMMARY | 2025-03-02 18:12 | XMS_ITS | Patient Health Record ---
Author Organization [facility] Address [address] [place] [address] Care Team Providers Care Snuff Grinder Name Role Phone Aileen Verma MD Primary Care Provider Unavail able Zheng Jone Unavailable [phone] Allergies Allergen (clinical drug ingredient) Drug/Non Drug [...] Risk Notes Problem Mononeuropathy of lower limb (106282374) Neuritis of left foot (G57.92) Active confirmed Plan Of Treatment Pending Test Test Name Order Date X ray : Foot, left 3V 07/21/2023 Insurance Providers Payer Name Payer Address Payer Phone Subscriber Number Group Number Insured Name Patient Relationship to Insured Coverage Start Date Coverage End Date [facility] [address] [facility] [address] [id number] Herman Martinez Spouse - patient is the spouse of the insured Medical (General) History Medical History History ICD Code Arthritis Chicken pox Sleep apnea Surgical History Surgery Date(Month/Year) hysterectomy A.C.L. Repair 2018
== END 2025-03-02 16:09 | disposition home or self-care (01) ==
LOC: HO.HPS 15:51
PROVIDERS: PCP Internal Medicine; Visit Provider Internal Medicine
DX: E66.01 Morbid (severe) obesity due to excess calories (principal); G47.33 Obstructive sleep apnea (adult) (pediatric); R05.9 Cough, unspecified
CPT/HCPCS: 99213

== ENCOUNTER 2025-03-03 16:43 | Outpatient (REF) | payer BC, SELFPAY ==
--- NOTE | ~2025-03-03 | MR_ITS ---
EXAMINATION: MR KNEE WITHOUT CONTRAST, LEFT CLINICAL INFORMATION: Left knee pain, anterior and posterior with flexion. Rule out internal derangement. COMPARISON: No prior knee MRI available. TECHNIQUE: MRI of the left knee without contrast was performed using routine sequences on a 1.5 Nancy Siemens high-field scanner. FINDINGS: MENISCI: Medial Meniscus: Intact and normal in signal. Lateral Meniscus: Intact and normal in signal. LIGAMENTS: Anterior Cruciate: Fibers appear intact although there is diffusely increased signal throughout the tendon, which in the setting of injury could represent partial tearing, although if there has not been recent injury reflect intrasubstance degeneration. Posterior Cruciate: Ligament appears thickened and hyperintense, and there appears to be at least partial tearing of the mid fibers (series 10, image 15). This may be chronic if there has not been a recent injury. Medial Collateral: Intact and normal in signal. Lateral Collateral Complex: The biceps femoris tendon, conjoined tendon, fibular collateral ligament, and popliteus tendon appear intact and grossly normal in signal. EXTENSOR MECHANISM: Intact and normal in signal. There is mild patella alexandra. Hoffa's fat pad is normal in signal. PATELLAR RETINACULUM: Intact and normal in signal. The medial patellofemoral ligament appears intact. BONE: No abnormal bone marrow signal or edema identified. No abnormal subchondral bone plate edema. JOINTS/CARTILAGE: Medial Compartment: Minimal superficial cartilage thinning and eburnation. No full-thickness defect. No subchondral bone plate edema. Lateral Compartment: Normal-appearing cartilage. No full-thickness defect. No subchondral bone plate edema. Patellofemoral Compartment: Mild patella alexandra. There is lateral patellar tilt. Mildly shallow trochlea noted. No cartilaginous defects. JOINT FLUID AND BURSAE: There is a small joint effusion. There is prepatellar soft tissue edema and mild thickening extending along the lateral margin of the anterior knee, suggesting mild to moderate prepatellar bursitis. OTHER: Trace fluid in the medial popliteal fossa. The musculature is normal in signal. MR/MR knee LT wo con IMPRESSION: 1. Suspect high-grade partial tearing of the PCL, with associated intrasubstance degeneration. The ligament may be compromised. This may be chronic given lack of associated findings. 2. Intrasubstance degeneration of the ACL, although the fibers appear intact. 3. Mild patella alexandra. Extensor mechanism intact. 4. Mild to moderate prepatellar bursitis. Electronically signed by: Cordell Chavez MD 03/07/2025 09:18 AM EDT
--- OUTSIDE RECORDS SUMMARY | 2025-03-03 16:45 | XMS_ITS | Patient Health Record ---
Author Organization [facility] Address [address] [place] [address] Care Team Providers Care Cellophane Worker Name Role Phone Aileen Verma MD Primary Care Provider Unavail able Zheng Jone Unavailable [phone] Allergies Allergen (clinical drug ingredient) Drug/Non Drug [...] Risk Notes Problem Mononeuropathy of lower limb ([id number]) Neuritis of left foot (G57.92) Active confirmed Plan Of Treatment Pending Test Test Name Order Date X ray : Foot, left 3V 07/21/2023 Insurance Providers Payer Name Payer Address Payer Phone Subscriber Number Group Number Insured Name Patient Relationship to Insured Coverage Start Date Coverage End Date [facility] [address] [facility] [address] [id number] Herman Martinez Spouse - patient is the spouse of the insured Medical (General) History Medical History History ICD Code Arthritis Chicken pox Sleep apnea Surgical History Surgery Date(Month/Year) hysterectomy A.C.L. Repair 2018
== END 2025-03-03 16:44 | disposition home or self-care (01) ==
LOC: HO.MRI 16:43
PROVIDERS: PCP Internal Medicine; Visit Provider Physician Assistant
DX: M23.92 Unspecified internal derangement of left knee (principal)
CPT/HCPCS: 73721

== ENCOUNTER → 2025-03-03 17:17 | Outpatient (BNV) | payer BC, SELFPAY | PROVIDERS: PCP Internal Medicine; Visit Provider Radiology Diagnostic Radiology | DX: M23.92 Unspecified internal derangement of left knee (principal) | CPT/HCPCS: 73721 ==

== ENCOUNTER 2025-03-16 08:49 | Day surgery (SDC) | payer BC, SELFPAY ==
[2025-03-16 09:09] VITALS: BP 148/94; PULSE 76; RESP 15; TEMP 36.3; O2SAT 98; BMI 49.2
--- NOTE | 2025-03-16 10:13 | MHC.SHP ---
Pre-Procedural Eval Section A - 24 Hr Update-Section A only Date of Service: 03/16/25 The patient is an INPATIENT: No Changes since office visit: No Cold of Flu in the past 2 weeks, No New Medical Problems, No Changes in Medication and No Patient answered all questions The patient has been examined within 24 hours of the surgical procedure. The History & Physical has been completed within 30 days and I have reviewed it.: Yes Section B - Complete if H&P > 30 days Chief Complaint: Trigger finger, left ring finger Allergies: Allergies Allergy/AdvReac Type Severity Reaction Status Date / Time acetaminophen [From Percocet] Allergy Severe Hives-only Verified 03/16/25 09:12 in percocet form-? tylenol allergy oxycodone [From Percocet] Allergy Severe Hives-only Verified 03/16/25 09:12 in percocet form-? tylenol allergy meat Allergy Severe Foot Ulcer Uncoded 03/02/25 16:09 Plan Diagnosis/Plan: Unchanged I have reviewed the history and physical and performed a pertinent physical examination on my patient. No changes have occurred unless specified. Time Spent With Patient Time: Total time managing care of this patient today ____ minutes.
--- NOTE | 2025-03-16 10:14 | W.PM.OPN ---
Operative Note Operative Note Date of Service: 03/16/25 Narrative: Operative Note Preop diagnosis: 1. Left ring finger Trigger finger Postop diagnosis: Same Procedure: 1. Left ring finger A1 laverne release Surgeon: Glory Cook MD Project Finance Analyst: Elmo CONNELLY Anesthesia: local block using 1% lidocaine with epinephrine Findings: No locking or catching after A1 laverne release EBL: Less than 5 mL Tourniquet time: None Specimens: None Complications: None Disposition: Brought to recovery room in stable condition Plan: Follow-up for 10-14 days for wound check and suture removal Indications: The patient is 50 years old, with a left ring finger trigger finger that has been unresponsive to nonoperative management. The risks and benefits of operative treatment including but not limited to risk of damage to blood vessels, nerves, tendons, infection, persistent pain, persistent symptoms, recurrence or possible need for additional surgery were discussed with the patient and the patient wishes to proceed with surgery. Procedure: Once consent was obtained a local block was performed in the preop area using a combination of 1% lidocaine with epinephrine. The patient was then brought back to the operating suite and placed on the operative table in supine position. The left upper extremity was prepped and draped in a standard surgical fashion. Once assured that we had a good block, a 1.5 cm oblique incision was made centered over the A1 laverne of the left ring finger . The incision was made through the skin to the subcutaneous tissues using a #15 blade. Careful dissection was made down to the level of the A1 laverne using tenotomy scissors, with care being taken to protect the nearby neurovascular structures. A longitudinal incision was made in the A1 laverne 1st using a #15 blade, then using tenotomy scissors under direct visualization. The A1 laverne was noted to be thickened. Following our A1 laverne release, we no longer saw any locking or catching of the digit with flexion and extension. Once satisfied with our A1 laverne release the wound was copiously irrigated with normal saline and hemostasis was obtained with a brief period of local pressure. The skin edges were reapproximated with some 5.0 nylon suture material and a sterile dressing was applied. The patient appears to have tolerated the procedure well and with no complications. All digits were well vascularized at the conclusion of the case.
[2025-03-16 11:04] VITALS: BP 144/81; PULSE 68; RESP 15; O2SAT 98
== END 2025-03-16 11:05 | disposition home or self-care (01) ==
PROVIDERS: PCP Internal Medicine; Visit Provider Orthopaedic Surgery
PROC: (CPT 26055; principal; 2025-03-16 10:00)
DX: M65.342 Trigger finger, left ring finger (principal); E55.9 Vitamin D deficiency, unspecified; R74.01 Elevation of levels of liver transaminase levels; K76.0 Fatty (change of) liver, not elsewhere classified; J30.9 Allergic rhinitis, unspecified; L68.0 Hirsutism; G47.33 Obstructive sleep apnea (adult) (pediatric); M51.369 Other intervertebral disc degeneration, lumbar region without mention of lumbar back pain or lower extremity pain; E66.01 Morbid (severe) obesity due to excess calories; Z68.42 Body mass index [BMI] 45.0-49.9, adult; Z79.899 Other long term (current) drug therapy; Z88.5 Allergy status to narcotic agent; Z91.018 Allergy to other foods; Z98.890 Other specified postprocedural states
CPT/HCPCS: 26055; J0171; J2003; J2004

== ENCOUNTER → 2025-03-16 08:49 | Outpatient (BNV) | payer BC, SELFPAY | PROVIDERS: PCP Internal Medicine; Visit Provider Orthopaedic Surgery | DX: M65.342 Trigger finger, left ring finger (principal) | CPT/HCPCS: 26055 ==

== ENCOUNTER 2025-03-21 09:57 | Outpatient (AMB) | payer BC, SELFPAY ==
[2025-03-21 10:06] VITALS: BP 130/72; BMI 49.1
--- NOTE | 2025-03-21 10:06 | A.OFFVIS_ITS ---
Vital Signs 03/21/25 10:06 Height 5 ft 4 in Weight 286 lb BMI 49.1 BP 130/72 Intake Visit Reasons: problem visit Allergies acetaminophen [From Percocet] Allergy (Severe, Verified 03/16/25 09:12) Hives-only in percocet form-? tylenol allergy oxycodone [From Percocet] Allergy (Severe, Verified 03/16/25 09:12) Hives-only in percocet form-? tylenol allergy meat Allergy (Severe, Uncoded 03/02/25 16:09) Foot Ulcer HPI Comments Details: Presenting planning of hot flashes. The patient gives a history of laparoscopic left oophorectomy 13 years ago followed by total abdominal hysterectomy with right salpingo-oophorectomy for endometriosis, developed mild hot flashes afterwards but resolved till recently when they recurred. No other associated symptoms PFSH Medical History Fatty liver Allergic rhinitis Transaminitis Vitamin D deficiency Hirsutism Morbid obesity VIRGILIO (obstructive sleep apnea) Disc degeneration, lumbar Spondylosis of lumbosacral spine with radiculopathy Arthritis Back pain Surgical History H/O laminectomy Hx of colonoscopy History of repair of ACL History of hysterectomy Family History Father History of kidney cancer Heart disease Paternal Uncle Throat cancer Paternal Grandfather Heart disease Sister Psoriatic arthritis Mother Diabetes mellitus Other Family history of osteoarthritis Mental health disorder Social History Housing: House Are you a primary director day care center to a significant other at home: No Do you presently have visiting nurse or other home services: No Alcohol intake: current Alcohol intake frequency: holidays/special occasions only Alcohol type: hard liquor Comment: uses cane on occasion Patient Tobacco Use Status: Never used Tobacco e-Cigarette/Vaping Use: Never Used Second Hand Smoke Exposure: No service: No 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al status: employed 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al exposures/hazards: No Cognitive needs: No Hearing needs: No Vision needs: Yes Review of Systems Const All systems reviewed & are unremarkable except as noted in HPI and below Reports as per HPI and Reports no additional complaints GI Reports no additional complaints Reports no additional complaints Physical Exam Vital Signs: BMI result Body Mass Index 49.1 Assessment & Plan Assessment & Plan (1) Hot flashes: Code(s): R23.2 - [place] Category: Medical Plan: Will order FSH/LH with TSH, DEXA scan. Instructions given the patient to schedule a follow-up appointment in 2 weeks , all questions answered, the patient verbalized understanding Orders: Orders Follicle Stimulating Hormone Today R23.2 - [place] TSH reflex Free T4 Today R23.2 - [place] XR DEXA axial skeleton Today Z78.0 - Asymptomatic menopausal state Lutenizing Hormone Today R23.2 - [place] Coding Level of Care Code Est Pt Level 3 (08554) Diagnoses Hot flashes R23.2
--- OUTSIDE RECORDS SUMMARY | 2025-03-21 11:16 | XMS_ITS | Patient Health Record ---
Author Organization [facility] Address [address] [place] [address] Care Team Providers Care Wig Maker Name Role Phone Aileen Verma MD Primary Care Provider Unavail able Zheng Jone Unavailable [phone] Allergies Allergen (clinical drug ingredient) Drug/Non Drug [...] Problem Status W/U Status Risk Notes Problem Neuritis of left foot (G57.92) Active confirmed Plan Of Treatment Pending Test Test Name Order Date X ray : Foot, left 3V 07/21/2023 Insurance Providers Payer Name Payer Address Payer Phone Subscriber Number Group Number Insured Name Patient Relationship to Insured Coverage Start Date Coverage End Date [facility] [address] [place] [address] [id number] Herman Martinez Spouse - patient is the spouse of the insured Medical (General) History Medical History History ICD Code Arthritis Chicken pox Sleep apnea Surgical History Surgery Date(Month/Year) hysterectomy [facility] Repair 2018
== END 2025-03-21 10:38 | disposition home or self-care (01) ==
LOC: HO.HWS 09:57
PROVIDERS: PCP Internal Medicine; Visit Provider Obstetrics & Gynecology
DX: R23.2 Flushing (principal)
CPT/HCPCS: 99213

== ENCOUNTER 2025-03-23 07:48 | Outpatient (REF) | payer BC, SELFPAY ==
--- OUTSIDE RECORDS SUMMARY | 2025-03-23 07:52 | XMS_ITS | Patient Health Record ---
Author Organization [facility] Address [address] [place] [address] Care Team Providers Care Healthcare Consulting Manager Name Role Phone Aileen Verma MD Primary Care Provider Unavail able Zheng Jone Unavailable [phone] Allergies Allergen (clinical drug ingredient) Drug/Non Drug [...] Insured Coverage Start Date Coverage End Date [facility] [address] [place] [address] [id number] Herman Martinez Spouse - patient is the spouse of the insured Medical (General) History Medical History History ICD Code Arthritis Chicken pox Sleep apnea Surgical History Surgery Date(Month/Year) hysterectomy A.C[facility] Repair 2018
[2025-03-23 08:59] LABS: TSH reflex Free T4 1.17 uIU/mL (0.32-4.0)
[2025-03-24 11:59] LABS: Follicle Stimulating Hormone 67.4 mIU/mL; Lutenizing Hormone 30.7 mIU/mL
== END 2025-03-23 07:49 | disposition home or self-care (01) ==
LOC: HO.LAB 07:48
PROVIDERS: PCP Internal Medicine; Visit Provider Obstetrics & Gynecology
DX: R23.2 Flushing (principal)
CPT/HCPCS: 36415; 83001; 83002; 84443

== ENCOUNTER 2025-03-31 08:06 | Outpatient (AMB) | payer BC, SELFPAY ==
[2025-03-31 08:12] VITALS: BMI 49.1
--- NOTE | 2025-03-31 08:12 | A.OFFVIS_ITS ---
Vital Signs 03/31/25 08:12 Height 5 ft 4 in Weight 286 lb BMI 49.1 Intake Visit Reasons: PO LT RF trigger 03/16/25 AR Allergies acetaminophen [From Percocet] Allergy (Severe, Verified 03/31/25 08:12) Hives-only in percocet form-? tylenol allergy oxycodone [From Percocet] Allergy (Severe, Verified 03/31/25 08:12) Hives-only in percocet form-? tylenol allergy meat Allergy (Severe, Uncoded 03/31/25 08:12) Foot Ulcer HPI HPI PO LT RF trigger 03/16/25 AR: Details: Patient is a 50-year-old female presents for postoperative evaluation status post left finger trigger release, DOS 03/16/2025. Today, the patient reports that the locking and catching she was experiencing has resolved, but she does still experience some minor perceived ?clicking? at the PIP and DIP joint of this finger. Other than this, she reports no redness, swelling, pain at the incision site. Denies any numbness or tingling in the left hand. No other acute complaints or concerns at this time. [facility] Medical History Fatty liver Allergic rhinitis Transaminitis Vitamin D deficiency Hirsutism Morbid obesity VIRGILIO (obstructive sleep apnea) Disc degeneration, lumbar Spondylosis of lumbosacral spine with radiculopathy Arthritis Back pain Surgical History H/O laminectomy Hx of colonoscopy History of repair of ACL History of hysterectomy Family History Father History of kidney cancer Heart disease Paternal Uncle Throat cancer Paternal Grandfather Heart disease Sister Psoriatic arthritis Mother Diabetes mellitus Other Family history of osteoarthritis Mental health disorder Social History Housing: House Are you a primary physician assistant primary care to a significant other at home: No Do you presently have visiting nurse or other home services: No Alcohol intake: current Alcohol intake frequency: holidays/special occasions only Alcohol type: hard liquor Comment: uses cane on occasion Patient Tobacco Use Status: Never used Tobacco e-Cigarette/Vaping Use: Never Used Second Hand Smoke Exposure: No service: No 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al status: employed 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al exposures/hazards: No Cognitive needs: No Hearing needs: No Vision needs: Yes Review of Systems Const All systems reviewed & are unremarkable except as noted in HPI and below Physical Exam Vital Signs: BMI result Body Mass Index 49.1 Extrem Other: Patient is alert, oriented, and in no acute distress. Neuro: Normal sensation of the tips of all digits of the left hand at this time Vascular: Cap refill brisk Pain: No tenderness to palpation about the incision site on the A1 laverne of the left ring finger ROM: Patient is able to make a closed fist and extend all digits of the left hand fully and without difficulty Skin: No lacerations or abrasions. General: No ecchymosis, erythema, or evidence of infection. Psych: Appears grossly normal Affect normal Attitude cooperative Assessment & Plan Assessment & Plan (1) Trigger finger, left ring finger: Code(s): M65.342 - Trigger finger, left ring finger Category: Medical Plan 1. Status post left ring finger trigger release DOS 03/16/2025 Patient appears to be recovering well postoperatively Patient is educated about the typical recovery course No acute follow-up indicated for postop care, as patient appears to be recovering very well from her surgery At this time, patient is informed that due to the perceived continued locking and catching of the PIP and DIP joints, she should follow-up with Dr. Cook for discussion of further surgical intervention if indicated Patient is amenable to this plan Follow-up in 3-[address] Cook, sooner with any acute concerns Coding Level of Care Code Global (81010) Diagnoses Trigger finger, left ring finger M65.342
--- OUTSIDE RECORDS SUMMARY | 2025-03-31 08:13 | XMS_ITS | Data Portability ---
Author Organization [facility], [facility] Address [address] [place] [address] Care Team Providers Care Manager Acquisition Name Role Phone SUZE KAUR Primary Care Provider Assessment Encounter Date Assessment Date Assessment LastModified by Organization Details LastModified Time 02/04/2024 02/04/2024 I am seeing the patient today under the supervision of Dr. Stern who was available but who did not see the patient. HPI: Patient presents for follow-up of low back pain. Patient reports radiating lower extremity pain. Denies lower extremity paresthesias and weakness. Describes pain in her left foot when walking like a tight rubber band around her foot. Previously seen by podiatry and was referred for evaluation of her back. Standing and walking worse than sitting. Able to walk up to 20 minutes only before having lower extremity pain and having to sit to relieve the pain.Difficulty getting dressed and with daily activities. Family help. Difficulty sleeping at night due to this and awakens her. No clear etiology. Worsening over time. Rates pain moderate to severe. Denies bowel or bladder dysfunction. TREATMENTS: Bed rest, activity modification, home exercise core strengthening lumbar stabilization program, heat/ice and OTC Tylenol/NSAIDs. injections ineffective. Oxycodone several years now. Taken as needed. Denies prior spine surgery. Past family, medical, social history and review of systems has been reviewed, updated and signed by me and is located in the patient? s chart. Examination: The patient is well appearing, alert and oriented x3 and in no acute distress. Increased BMI. Inspection of the spine reveals no step off, deformity or overlying skin changes. Range of motion of the lumbar spine is 60% of normal. Range of motion of the hip and knees full without discomfort. The spine is mildly tender over the paravertebral musculature and sciatic notch. Nontender over the greater trochanters. Straight leg raise is negative. Strength and sensation intact. Re? e xes normal. No ankle clonus. X-rays previously ordered, obtained and reviewed at [facility], 2 views of the lumbar spine reveals no fractures, instability or bony lesions. There is a mild spondylolisthesis at L4-5 and advanced disc collapse L5-S1. MRI lumbar spine reviewed performed at , no report available, revealing degenerative disc bulging at L4-5 with left sided stenosis at this level. pretty tight on the left side. Otherwise canal open. Advanced degenerative findings at L5-S1. Impression/Plan: Lumbar radiculitis with findings on MRI to suggest L4-5 lateral stenosis on the left. Findings correlate with history. Patient has exhausted and failed to improve with conservative treatments including injections. Follow up with one of our spine surgeons next. [employer] speech recognition rate examiner software was used to create portions of this document. An attempt at proofreading has been made to minimize errors. Please call for corrections. [email or web address] Not available 02/04/2024 10:52:13 Plan of Treatment Reminders Order Date Submit Date Provider Last Modified By Organization Details Last Modified Time Details Appointments RECHECK 15 2024 03:15P Steffanie Rios PA-C Not available Not available Not available Lab None recorded. Referral None recorded. Procedures None recorded. Surgeries None recorded. Imaging MRI, knee, w/o contrast - L knee mri. ? mmt v root tear 2024 025 [facility] (Imaging), [address] [place], [address], 03/07/2025 09:34:07 Medication Orders None recorded. Patient TargetsNo targets recorded. Patient InstructionsNo instructions recorded. Reason for Referral None Reported. Results Created Date Observation Date Name Description Value Unit Range Abnormal Flag Note LastModifiedBy Organization Detail LastModifiedTime 03/07/20 25 03/03/2025 MRI, knee, w/o contr ast No observ ation record ed. [facility] [address] [place], [address], 03/08/2025 09:15:59 03/16/2003/03/2025 MRI, knee, w/o contr ast No observ ation record ed. [facility]) [address] [place], [address], 03/16/2025 10:09:01 Result Notes None recorded. Problems Name Problem SNOMED Code Status Onset Date Resolution Date Notes Provider Name and Address Organization Details Recorded Time Tear of medial meniscus of knee 027265181 Active 2024 Yakov Rios PA-C [address], [place], [address], [facility]3] [facility] 07:12:41 Pain of left knee joint 30874027619650 7 Active 2024 Yakov Rios PA-C [address], [place], [address], [facility]3] [facility] 5 07:57:07 Pes anserinus bursitis of left knee 92213275717340 06 Active 2024 Yakov Rios PA-C [address], [place], [address], [facility]3] [facility] 07:57:17 Problem Notes None recorded. Procedures Surgical History Date Name Laterality Status Provider Name and Address Organization Details Recorded Time 5 Sports Knee 4&1 completed Yakov Rios PA-C [address], [place], [address], [facility]3] [facility] 03/16/2025 07:56:58 Spine Surgery completed Desire Kim [facility] 02/21/2025 14:59:04 Imaging Results Imaging Date Name Status LastModified by Organiz ation Details LastModified Time 03/03/2025 MRI, knee, w/o contrast completed [facility] [address] [facility], [place], [address], 03/08/2025 09:15:59 03/03/2025 MRI, knee, w/o contrast completed [facility] [address] [facility], [place], [address], 03/16/2025 10:09:01 Procedure Notes None recorded. Medical Equipment None Reported. Allergies Allergen ID Allergen Name Allergen Category Reaction Reaction Severity Criticality Documentation Date Start Date Code Code System Note Provider Name and Address Organization Details Recorded Time 491245 acetamino phen / oxycodone medicatio n Not available Not available Not available 02/04/2024 33159 3 RxNorm Katie larkinamy [facility], [facility] 4 10:01:13 383809 acetamino phen medicatio n Not available Not available Not available 02/21/2025 161 RxNorm Desire Kim [facility] 5 15:06:59 311387 oxycodone medicatio n Not available Not available Not available 02/21/2025 7804 RxNorm Desire Kim [facility], [facility] 5 15:07:01 Medications Name Sig Start Date Stop Date Status Note LastModified by Organization Details LastModified Time celecoxib 200 mg capsule TAKE 1 CAPSULE BY MOUTH TWICE DAILY 02/21 completed Not Available Not Available Not Available pentoxifyll ine ER 400 mg tablet,exte nded release TAKE 1 TABLET BY MOUTH THREE TIMES DAILY WITH A MEAL / FOOD active Not Available Not Available No t Available SF 5000 Plus 1.1 % dental cream USE DIRECTED TWICE DAILY AFTER BREAKFAST AND AFTER SUPPER 02/16 completed Not Available Not Available Not Available oxycodone 5 mg tablet TAKE 1 TABLET BY MOUTH EVERY 6 TO 8 HOURS NEEDED FOR SEVERE PAIN (7 TO 10 ON PAIN SCALE) active Not Available Not Available No t Available hydrochloro thiazide 12.5 mg tablet TAKE 1 TABLET BY MOUTH EVERY DAY active Not Available Not Available No t Available FreeStyle Lite Strips USE DIRECTED TO TEST BLOOD SUGAR FOUR TIMES DAILY active Not Available Not Available No t Available FreeStyle [place] Lite kit USE DIRECTED TO TEST BLOOD SUGAR active Not Available Not Available No t Available diclofenac 1 % topical gel APPLY 2 GRAMS TOPICALLY TO THE AFFECTED AREA(S) OF THE ELBOW, wrist, OR HAND (INCLUDIN G palm/fing ers/and BACK OF HAND) FOUR TIMES DAILY NEEDED active Not Available Not Available No t Available vitamin E (dl, acetate) 180 mg (400 unit) capsule TAKE 1 CAPSULE BY MOUTH EVERY DAY active Not Available Not Available No t Available oxycodone HCl-oxycodo ne-ASA oxyCODONE HCl 5MG Tablet 02/16 completed Statu s: 'Curr ent'; Not Available Not Available Not Available Gelnique 10 % (100 mg/gram) transdermal gel packet APPLY 1g TOPICALLY EVERY DAY active Not Available Not Available No t Available Vitamin D3 50 mcg (2,000 unit) capsule TAKE 1 CAPSULE BY MOUTH EVERY DAY active Not Available Not Available No t Available TRUEplus Lancets 33 gauge USE DIRECTED TO TEST BLOOD SUGAR FOUR TIMES DAILY active Not Available Not Available No t Available Gvoke HypoPen 2-Pack 0.5 mg/0.1 mL subcutaneou s auto-inject or INJECT 0.1 ML SUBCUTANE OUSLY NEEDED FOR hypoglyce ethel emergency active Not Available Not Available No t Available Paxlovid 300 mg (150 mg x 2)-100 mg tablets in a dose pack TAKE 2 TABLETS (300 MG) OF NIRMATREL VIR & 1 TABLET (100 MG) OF RITONAVIR BY MOUTH TWICE DAILY FOR 5 DAYS 02/21 completed Not Available Not Available Not Available Vitals Date Recorded Body height Body mass index (BMI) Body weight Provider Name and Address Organization Details Last Updated DateTime 02/04/2024 162.56 cm 48.1 kg/m2 767873.86 g Katie haile [facility] 02/04/2024 10:00:53 Date Recorded Body height Body mass index (BMI) Body weight Provider Name and Address Organization Details Last Updated DateTime 02/21/2025 162.56 cm 48.1 kg/m2 931986.86 g Desire Kim [facility] 02/21/2025 15:06:52 Date Recorded Body height Body mass index (BMI) Body weight Provider Name and Address Organization Details Last Updated DateTime 03/15/2025 162.56 cm 48.1 kg/m2 068391.86 g Dariel Bowman [facility] 03/15/2025 10:43:18 Social History None recorded. Functional Status None recorded. Mental Status None recorded. Family History Nothing Reported. Medical History No medical history recorded. Gynecological HistoryNo gynecological history recorded. Obstetrics History GPAL:G 0 P 0 0 0 0 Past Encounters Encounter ID Performer Location Encounter Start Date Encounter Closed Date Diagnosis/Indication Diagnosis SNOMED-CT Code Diagnosis ICD10 Code Diagnosis Note [id number] JESSICA Burnette [address] [place] [address] 02/04/2024 09:21:56 02/24/2024 14:03:55 [id number] JESSICA Sellers [address] [place] [address] 02/21/2025 14:38:16 03/12/2025 15:04:35 Derangement of left knee [id number] 0028380 M23.92 Tear of me dial meniscus of knee 144065625 S83.242A [id number] JESSICA Sellers [facility] [address] [place] [address] 03/15/2025 10:04:38 03/31/2025 06:59:40 Pain of left knee joint 4662931904 09530 M25.562 Pes anseri nus bursitis of left knee 3514516563 524584 M70.52 Health Concerns Section Related Observation LastModified by Organization Detai ls LastModified Time None Recorded Concern Status LastModified by Organization Details LastModified Time None Recorded Advance Directives Directive None Recorded Payers Encounter Date Sequence Insurance Name Policy Number Policy Esteves Covered Member ID Esteves Member ID Guarantor Name 02/04/[address] [place] [address] [id number] Loly Gutierrez [id number] Loly Gutierrez 03/15/2025 1 [place] [facility] [id number] Herman Martinez [id number] Loly Gutierrez Notes Date Note Type Note Provider Name and Address Organization Details Recorded Time 02/21/2025 text/html I am seeing the patient today under the supervision of Dr. Cuello who was available but who did not see the patient. Dx: Left knee pain with medial meniscus tear posttraumatic HPI: Gaby presents to our office for second opinion of orthopedic issues with regard to her left knee. She reports suffering a fall when she slipped and fell out of a tub in a hotel bathroom in [place] 10/14/2024. She has been evaluated and treated by the orthopedic team at [facility]. She had x-rays of the knee on 2 occasions day after injury 10/15/2024 as well as additional x-ray 10/20/2024. X-rays reported abnormal bony lesions of the distal femur and proximal tibia which warranted MRI imaging patient had a specific MRI of the femur and also MRI of the tibia in October however has not had diagnostic imaging of the knee. Tibial and femoral MRIs identified benign lesions of the long bones including nonossifying fibromas or bony infarcts. No suspicion for aggressive lesions. Patient has had persistent ongoing pain around the kneecap and medial joint line. She takes oxycodone for pain. Past Medical/Surgical History/Meds/Allergi es reviewed and charted Physical Examination: The patient is well appearing and in no apparent distress. Alert and oriented x3. Gait is asymmetric. afebrile, vital signs stable, in no apparent distress, oriented to person/place/time. Gait antalgic. Arises from sitting with slight difficulty. Difficulty with squatting maneuvers. Tenderness to palpation medial joint line. increased pain with twisting maneuvers, positive Tj sign. No ligamentous laxity is identified. Negative Yung and negative anterior drawer. There is slight pain reproduced with valgus stress of the MCL but no significant laxity. Skin: intact without erythema. Peripheral, vascular, lymphatic examination, skin, neurological, coordination, reflexes, sensation are within normal limits. Radiographs: Radiographs from an outside source 3-4 views of the left knee do not show any significant intra-articular arthritic changes or joint space narrowing. No significant marginal osteophytes in this 50-year-old. Identified hyperdensity lesions noted within the distal metaphysis of the femur and proximal metaphysis of the tibia appear to be benign.Both the tibial and femoral MRIs were reviewed and did not imaged the knee satisfactorily to assess intra-articular pathology. Impression: Symptomatic medial meniscus tear left knee after traumatic fall. Possible posterior horn root tear of the medial meniscus. Plan: Patient has a 5-month history of ongoing refractory knee pain. Has not responded to conservative measures. At this time specific additional knee imaging is indicated and medically necessary. Her mechanism of injury and clinical exam are consistent with possible meniscus tear especially possible root tear. No arthritic changes in the. At this time MRI is ordered to assess the knee. Recheck for MRI review and further discussion of her treatment options including potential need for surgery. [facility] speech recognition rate examiner software was used to create portions of this document. An attempt at proofreading has been made to minimize errors. Please call for corrections. Yakov Rios PA-C [address] [facility] [address], [place], [address], [facility] 02/24/2025 07:13:11 03/15/2025 text/html I am seeing the patient today under the supervision of Dr. Amin who was available but who did not see the patient. HPI: Follow-up visit for this patient who is a 50-year-old female with a fairly lengthy history of left knee pain. She presented to our office for second opinion earlier this month. Previous office visit notes reviewed. An MRI was ordered of the left knee and obtained. This is now available for review. Patient continues to report moderate to severe discomfort with most activities. She rates her pain a 6/10. It is most bothersome with twisting bending and loading activities. Past family, medical, social history and review of systems has been reviewed, updated and signed by me and is located in the patient's chart. Examination: The patient is well appearing and in no apparent distress. Alert and oriented x3. Gait is symmetric. Patient arises from sitting with slight difficulty. Overall has normal gait however. There is pain reproduced with double and single-leg squatting maneuvers. Significant pain reproduced with twisting maneuvers while standing. The left knee exam shows no significant joint effusion. There is mild soft tissue swelling about the knee. Tenderness to palpation medially at the joint line and below the joint line in the area of Pez anserine bursa. Ligamentous stability intact. No valgus or varus laxity is of the MCL or LCL. No clinical laxity of the ACL or PCL. Peripheral, vascular, lymphatic examination, skin, neurological, coordination, reflexes, sensation are overall within normal limits. MRI imaging of the left knee recently obtained and independently reviewed today at [facility]. 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 MCL intact. The MRI images and report reviewed with the patient. Impression: Left knee pain, prepatellar bursitis, pes anserine bursitis/tendinitis. Plan: Patient having persistent moderate to severe knee pain. Has failed to respond to conservative measures. Today her clinical exam is consistent with irritability about the pes anserine bursa and tendon region and I recommended a diagnostic and therapeutic injection to the pes bursa. She agreed to this. After aseptic technique and consent with multi needling technique the pes anserine bursa was injected with Marcaine and corticosteroid. Please see procedure note. Patient tolerated procedure very well and postinjection had complete resolution of her knee pain and symptoms. Improved function and squatting maneuvers. She is advised to continue with conservative management ice and stretching of this area. Recheck on an as-needed basis. May repeat injection if symptoms recur. Yakov Rios PA-C [address] [facility] [address], [place], [address], [facility] [place] [facility] 03/16/2025 07:57:38 OBGyn Episode No OBEpisode recorded.
--- OUTSIDE RECORDS SUMMARY | 2025-03-31 08:13 | XMS_ITS | Patient Health Record ---
Author Organization [facility] Address [address] [place] [address] Care Team Providers Care Production Specialist Name Role Phone Aileen Verma MD Primary Care Provider Unavail able Zheng Jone Unavailable [phone] Allergies Allergen (clinical drug ingredient) Drug/Non Drug [...] Insured Coverage Start Date Coverage End Date [facility] [address] [place] [address] [phone] [id number] Herman Martinez Spouse - patient is the spouse of the insured Medical (General) History Medical History History ICD Code Arthritis Chicken pox Sleep apnea Surgical History Surgery Date(Month/Year) hysterectomy A.[facility]. Repair 2018
== END 2025-03-31 08:25 | disposition home or self-care (01) ==
LOC: HO.HOS 08:10
PROVIDERS: PCP Internal Medicine
DX: M65.342 Trigger finger, left ring finger (principal)
CPT/HCPCS: 99024

== ENCOUNTER 2025-04-13 08:09 | Outpatient (REF) | payer BC, SELFPAY ==
--- NOTE | ~2025-04-13 | MM_ITS ---
EXAMINATION: DXA BONE DENSITY AXIAL HISTORY: Z78.0 - Asymptomatic menopausal state TECHNIQUE: FD9 Group Dual energy absorptiometry (DEXA) of the lumbar spine, total left hip, and femoral neck was performed. COMPARISON: There are no prior studies for comparison. FINDINGS: The bone mineral density of the lumbar spine is 1.472, corresponding to a T-score of 2.4, and a Z-score of 1.5. This is indicative of normal bone mineral density. The bone mineral density of the left total hip is 1.544, corresponding to a T-score of 4.3, and a Z-score of 3.8. This is indicative of normal bone mineral density. The bone mineral density of the left femoral neck is 1.372, corresponding to a T-score of 2.4, and a Z-score of 2.4. This is indicative of normal bone mineral density. FRACTURE RISK: The FRAX index suggests a risk of major osteoporotic fracture of 1.2%, and of hip fracture 0.0%. MM/XR DEXA axial skeleton IMPRESSION: Based on bone mineral density, and according to World Health Organization (WHO) criteria, the diagnosis is consistent with normal bone mineral density. All bone density values are in grams per centimeter squared (g/cm2). Statistically, 68% of repeat scans fall within 1 SD (+/- 0.010 g/cm2 for AP spine L1-L4) and 1 SD (+/- 0.012 g/cm2 for femur total) FRAX is a trademark of the [employer], a World Health Organization (WHO) Collaborating Center. Electronically signed by: Viktor Lao MD 04/13/2025 08:33 AM EDT
== END 2025-04-13 08:10 | disposition home or self-care (01) ==
LOC: HO.MAMMO 08:09
PROVIDERS: PCP Internal Medicine; Visit Provider Obstetrics & Gynecology
DX: Z78.0 Asymptomatic menopausal state (principal)
CPT/HCPCS: 77080

== ENCOUNTER → 2025-04-13 08:15 | Outpatient (BNV) | payer BC, SELFPAY | PROVIDERS: PCP Internal Medicine; Visit Provider Radiology Diagnostic Radiology | DX: E28.39 Other primary ovarian failure (principal) | CPT/HCPCS: 77080 ==

== ENCOUNTER 2025-04-18 10:21 | Outpatient (AMB) | payer BC, SELFPAY ==
--- NOTE | 2025-04-18 10:29 | A.OFFVIS_ITS ---
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 tylenol allergy oxycodone [From Percocet] Allergy (Severe, Verified 04/18/25 10:39) Hives-only in percocet form-? tylenol allergy meat Allergy (Severe, Uncoded 04/18/25 10:39) Foot Ulcer HPI Comments Details: Presenting for annual exam. No complaints. Last Pap/HPV was many years ago Last Mammogram was BI-RADS 1 in 12/10 FSH/LH 67.4/30.7 DEXA scan : The bone mineral density of the lumbar spine is 1.472, corresponding to a T-score of 2.4, and a Z-score of 1.5. This is indicative of normal bone mineral density. The bone mineral density of the left total hip is 1.544, corresponding to a T-score of 4.3, and a Z-score of 3.8. This is indicative of normal bone mineral density. The bone mineral density of the left femoral neck is 1.372, corresponding to a T-score of 2.4, and a Z-score of 2.4. This is indicative of normal bone mineral density. FRACTURE RISK: The FRAX index suggests a risk of major osteoporotic fracture of 1.2%, and of hip fracture 0.0%. Last screening colonoscopy 10/07, the recommendation was to repeat in 5 years [facility] Medical History Fatty liver Allergic rhinitis Transaminitis Vitamin D deficiency Hirsutism Morbid obesity VIRGILIO (obstructive sleep apnea) Disc degeneration, lumbar Spondylosis of lumbosacral spine with radiculopathy Arthritis Back pain Surgical History H/O laminectomy Hx of colonoscopy History of repair of ACL History of hysterectomy Family History Father History of kidney cancer Heart disease Paternal Uncle Throat cancer Paternal Grandfather Heart disease Sister Psoriatic arthritis Mother Diabetes mellitus Other Family history of osteoarthritis Mental health disorder Social History Housing: House Are you a primary daycare manager to a significant other at home: No Do you presently have visiting nurse or other home services: No Alcohol intake: current Alcohol intake frequency: holidays/special occasions only Alcohol type: hard liquor Comment: uses cane on occasion Patient Tobacco Use Status: Never used Tobacco e-Cigarette/Vaping Use: Never Used Second Hand Smoke Exposure: No service: No 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al status: employed 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al exposures/hazards: No Cognitive needs: No Hearing needs: No Vision needs: Yes Female Reproductive History Menstrual Date of Mammogram: 12/03/24 Date of last Bone Density Screenin04/13/25 Review of Systems Const All systems reviewed & are unremarkable except as noted in HPI and below Card Reports as per HPI and Reports no additional complaints Resp Reports as per HPI and Reports no additional complaints GI Reports as per HPI and Reports no additional complaints Reports as per HPI Physical Exam Vital Signs: Last Vital Signs BP 130/86 04/18/25 10:34 BMI result Body Mass Index 49.1 Const General: cooperative, healthy appearing and comfortable General: Yes bladder normal to palpation External Female Exam: No lesion Speculum Exam - Vagina: normal appearance of the vagina, normal vaginal d ischarge and not erythematous Speculum Exam - Cervix: Cervix absent Bimanual exam- vagina & uterus: bladder normal to palpation and uterus absent Bimanual Exam- Adnexa, other: Other (No masses detected) Assessment & Plan Assessment & Plan (1) Well woman exam: Code(s): Z01.419 - Encounter for gynecological examination (general) (routine) without abnormal findings Category: Medical Plan: Cotesting not indicated since the patient is status post hysterectomy for benign disease and no history of abnormal Pap smears Instructions given the patient to schedule next screening Mammogram in 12/11 Counseled the patient about the recommended dietary allowance of 1000 mg of Calcium & 600 IU of vitamin D. The patient was instructed to perform monthly self-breast exams and to schedule an annual exam in a year; All questions answered and the patient verbalized understanding. Instructed the patient to schedule annual exam in a year Coding Level of Care Code Est Pt Prev Care 40-64y(59407) Diagnoses Well woman exam Z01.419
[2025-04-18 10:34] VITALS: BP 130/86; BMI 49.1
== END 2025-04-18 11:07 | disposition home or self-care (01) ==
LOC: HO.HWS 10:21
PROVIDERS: PCP Internal Medicine; Visit Provider Obstetrics & Gynecology
DX: Z01.419 Encounter for gynecological examination (general) (routine) without abnormal findings (principal)
CPT/HCPCS: 99396; 99459

== ENCOUNTER → 2025-04-18 10:21 | Outpatient (BNVA) | payer BC, SELFPAY | PROVIDERS: PCP Internal Medicine; Visit Provider Obstetrics & Gynecology ==

== ENCOUNTER 2025-04-19 12:53 | Outpatient (AMB) | payer BC, SELFPAY ==
[2025-04-19 13:06] VITALS: BMI 49.1
--- NOTE | 2025-04-19 13:06 | MHC.OFFVIS ---
Vital Signs 04/19/25 13:06 Height 5 ft 4 in Weight 286 lb BMI 49.1 Intake Visit Reasons: PO- LT RF trigger 03/16/25 AR Intake Note: Loly 50 yr old female presents today for her Status post left ring finger trigger release DOS 03/16/2025. Last seen with Rain Borrego who wants patient to be further evaluated with Dr Cook due to left ring finger continuing to lock. Allergies acetaminophen [From Percocet] Allergy (Severe, Verified 04/19/25 13:11) Hives-only in percocet form-? tylenol allergy oxycodone [From Percocet] Allergy (Severe, Verified 04/19/25 13:11) Hives-only in percocet form-? tylenol allergy meat Allergy (Severe, Uncoded 04/19/25 13:11) Foot Ulcer HPI HPI PO- LT RF trigger 03/16/25 AR: Details: Loly is a 50 year old right hand dominant woman who returns S/P left ring finger trigger release, DOS: 03/16/25. She complains that when she wakes up, the fingers of her left hand are very stiff and difficult to move. She denies any locking or catching. Specifically, no locking or catching with the ring finger in tight flexion. [facility] Medical History Fatty liver Allergic rhinitis Transaminitis Vitamin D deficiency Hirsutism Morbid obesity VIRGILIO (obstructive sleep apnea) Disc degeneration, lumbar Spondylosis of lumbosacral spine with radiculopathy Arthritis Back pain Surgical History H/O laminectomy Hx of colonoscopy History of repair of ACL History of hysterectomy Family History Father History of kidney cancer Heart disease Paternal Uncle Throat cancer Paternal Grandfather Heart disease Sister Psoriatic arthritis Mother Diabetes mellitus Other Family history of osteoarthritis Mental health disorder Social History Housing: House Are you a primary neonatal intensive care nurse to a significant other at home: No Do you presently have visiting nurse or other home services: No Alcohol intake: current Alcohol intake frequency: holidays/special occasions only Alcohol type: hard liquor Comment: uses cane on occasion Patient Tobacco Use Status: Never used Tobacco e-Cigarette/Vaping Use: Never Used Second Hand Smoke Exposure: No service: No 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al status: employed 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al exposures/hazards: No Cognitive needs: No Hearing needs: No Vision needs: Yes Review of Systems Const All systems reviewed & are unremarkable except as noted in HPI and below Physical Exam Vital Signs: BMI result Body Mass Index 49.1 Const General: no acute distress and alert Orientation/consciousness: patient oriented x3 Neuro General: patient oriented x3 Extrem Other: Evaluation of Left Upper Extremity: The patient is alert, oriented, and in no acute distress Neuro: Median, Ulnar, Radial nerves motor and sensory intact and sensation is normal to the tips of all digits Vascular: Cap refill brisk ROM: She can make a fist and extend all her digits No locking or catching She demonstrates the fingers of her left hand are stuck with ~30 degrees of flexion in the PIP joints in the mornings. Again, when specifically asked about the finger getting ?stuck? in tight flexion, she says that this does not happen now. Psych Appearance: grossly normal Affect: normal affect Attitude: cooperative Assessment & Plan Assessment & Plan (1) Morning joint stiffness of left hand: Code(s): M25.642 - Stiffness of left hand, not elsewhere classified Category: Medical Plan Assessment & Plan: 1. Left hand stiffness Particularly in the mornings I educated her about this condition She should work on ROM exercises daily, particularly in the mornings I explained this is not a recurrence of her trigger finger, as she has no locking or catching No intervention warranted at this time. if she continues to have difficulty, she can contact the clinic for a referral to OT hand therapy Otherwise she can follow up prn 2. Left ring trigger finger, S/P release DOS: 03/16/25 Doing well, no complaints Scribed for Glory Cook MD by Chao Huffman, director medical, on 04/19/25 at 1:20 PM, EST. Coding Level of Care Code Global (99786) Diagnoses Morning joint stiffness of left hand M25.642
--- OUTSIDE RECORDS SUMMARY | 2025-04-19 13:17 | XMS_ITS | Data Portability ---
Author Organization [facility], [facility] Address [address] [place] [address] Care Team Providers Care Parent Partner Name Role Phone SUZE KAUR Primary Care [...] X-rays previously ordered, obtained and reviewed at [facility], 2 views of the lumbar spine reveals no fractures, instability or bony lesions. There is a mild spondylolisthesis at L4-5 and advanced disc collapse L5-S1. MRI lumbar spine reviewed performed at [facility], no report available, revealing degenerative disc bulging [...] with one of our spine surgeons next. Listar speech recognition dredgemaster software was used to create portions of [...] ? mmt v root tear 2024 025 [facility] ([facility]), [address] [place], [address], 03/07/2025 09:34:07 Medication Orders None recorded. Patient TargetsNo targets recorded. Patient InstructionsNo instructions recorded. Reason for Referral None Reported. Results Created Date Observation Date Name Description Value Unit Range Abnormal Flag Note LastModifiedBy Organization Detail LastModifiedTime 03/07/20 25 03/03/2025 MRI, knee, w/o contr ast No observ ation record ed. [facility] [address] [place], [address], 03/08/2025 09:15:59 03/16/20 25 03/03/2025 MRI, knee, w/o contr ast No observ ation record ed. [facility] [address] [place] [address], [place], [address], 03/16/2025 10:09:01 Result Notes None recorded. Problems Name Problem SNOMED Code Status Onset Date Resolution Date Notes Provider Name and Address Organization Details Recorded Time Tear of medial meniscus of knee 228061540 Active 2024 Yakov Rios PA-C [address], [place], [address], [facility] 07:12:41 Pain of left knee joint 79782369567575 7 Active 2024 Yakov Rios PA-C [address], [place], [address], [facility] 5 07:57:07 Pes anserinus bursitis of left knee 26014373022688 06 Active 2024 Yakov Rios PA-C [address], [place], [address], [facility] 07:57:17 Problem Notes None recorded. Procedures Surgical History Date Name Laterality Status Provider Name and Address Organization Details Recorded Time 5 Sports Knee 4&1 completed Yakov Rios PA-C [address], [place], [address], [facility] 03/16/2025 07:56:58 4 Spine Surgery completed Desire Kim [facility] 02/21/2025 14:59:04 Imaging Results None recorded. Procedure Notes None recorded. Medical Equipment None Reported. Allergies Allergen ID Allergen Name Allergen Category Reaction Reaction Severity Criticality Documentation Date Start Date Code Code System Note Provider Name and Address Organization Details Recorded Time 342513 acetamino phen / oxycodone medicatio n Not available Not available Not available 02/04/2024 48409 3 RxNorm Katie haile [facility], [facility] 4 10:01:13 339298 acetamino phen medicatio n Not available Not available Not available 02/21/2025 161 RxNorm Desire Kim [facility], [facility] 5 15:06:59 908929 oxycodone medicatio n Not available Not available Not available 02/21/2025 7804 RxNorm Desire Kim [facility], [facility] 5 15:07:01 Medications Name Sig Start Date [...] Available Not Available No t Available FreeStyle [place] Lite kit USE DIRECTED TO TEST BLOOD [...] Updated DateTime 02/04/2024 162.56 cm 48.1 kg/m2 485539.86 g Katie haile [facility] 02/04/2024 10:00:53 Date Recorded Body height Body mass index (BMI) Body weight Provider Name and Address Organization Details Last Updated DateTime 02/21/2025 162.56 cm 48.1 kg/m2 686433.86 g Desire Kim [facility] 02/21/2025 15:06:52 Date Recorded Body height Body mass index (BMI) Body weight Provider Name and Address Organization Details Last Updated DateTime 03/15/2025 162.56 cm 48.1 kg/m2 865160.86 g Dariel Bowman [facility] 03/15/2025 10:43:18 Social History None recorded. Functional Status None recorded. Mental Status None recorded. Family History Nothing Reported. Medical History No medical history recorded. Gynecological HistoryNo gynecological history recorded. Obstetrics History GPAL:G 0 P 0 0 0 0 Past Encounters Encounter ID Performer Location Encounter Start Date Encounter Closed Date Diagnosis/Indication Diagnosis SNOMED-CT Code Diagnosis ICD10 Code Diagnosis Note [id number] JESSICA Burnette [address]rd floor [address] [place] [address] 02/04/2024 09:21:56 02/24/2024 14:03:55 [id number] JESSICA Sellers 2nd floor [address] [place] [address] 02/21/2025 14:38:16 03/12/2025 15:04:35 Derangement of left knee 9668598374 2732534 M23.92 Tear of me dial meniscus of knee 092002662 S83.242A [id number] JESSICA Sellers [facility] [address] [place] [address] 03/15/2025 10:04:38 03/31/2025 06:59:40 Pain of left knee joint 8610161816 94091 M25.562 Pes anseri nus bursitis of left knee 7417776634 600628 M70.52 Health Concerns Section Related Observation LastModified by Organization Detai ls LastModified Time None Recorded Concern Status LastModified by Organization Details LastModified Time None Recorded Advance Directives Directive None Recorded Payers Encounter Date Sequence Insurance Name Policy Number Policy Esteves Covered Member ID Esteves Member ID Guarantor Name 02/04/2024 1 [facility] [id number] Loly Gutierrez [id number] Loly Gutierrez 03/15/2025 1 [facility] [id number] Herman Martinez [id number] Loly Gutierrez Notes Date Note Type Note [...] a tub in a hotel bathroom in [place] 10/14/2024. She has been evaluated and treated by the orthopedic team at [facility]. She had x-rays of the knee on [...] need for surgery. Medical Practice speech recognition dredgemaster software was used to create portions of this document. An attempt at proofreading has been made to minimize errors. Please call for corrections. Yakov Rios PA-C [address] [place] [address], [place], [address], [facility] 02/24/2025 07:13:11 03/15/2025 text/html I am seeing [...] recently obtained and independently reviewed today at [facility]. MRI from 03/03/2025 is notable for chronic [...] if symptoms recur. Yakov Rios PA-C [address] [facility] [address], [place], [address], [facility] 03/16/2025 07:57:38 OBGyn Episode No OBEpisode recorded.
== END 2025-04-19 13:24 | disposition home or self-care (01) ==
LOC: HO.HOS 12:54
PROVIDERS: PCP Internal Medicine; Visit Provider Orthopaedic Surgery
DX: M25.642 Stiffness of left hand, not elsewhere classified (principal)
CPT/HCPCS: 99024

== ENCOUNTER 2025-07-18 12:53 | Outpatient (REF) | payer BC, SELFPAY ==
--- NOTE | ~2025-07-18 | US_ITS ---
EXAMINATION: US EXTRACRANIAL CAROTID DUPLEX, BILATERAL CLINICAL INFORMATION: Transient visual loss COMPARISON: None available. TECHNIQUE: Real-time ultrasound and Doppler techniques (integrating B-mode 2-D vascular images, Doppler spectral analysis and color-flow Doppler imaging) were utilized to interrogate the extracranial carotid arteries, the vertebral arteries and proximal subclavian arteries bilaterally. The degree of stenosis is determined by criteria similar to NASCET. FINDINGS: Right Side: 1. There is no atherosclerotic plaque seen in the bifurcation/proximal ICA region. 2. The common carotid artery PSV proximally is 160 cm/s and distally 161 cm/s. 3. The proximal internal carotid artery velocities are 115 cm/s systolic and 23 cm/s diastolic. 4. The proximal external carotid artery PSV is 1.4 cm/s. 5. The vertebral artery shows antegrade flow. 6. The subclavian artery waveforms are normal with elevated velocity of 200 cm/second suggestive of mild to moderate stenosis. Left Side: 1. There is no atherosclerotic plaque seen in the bifurcation/proximal ICA region. 2. The common carotid artery PSV proximally is 168 cm/s and distally 121 cm/s. 3. The proximal internal carotid artery velocities are 18 cm/s systolic and 26 cm/s diastolic. 4. The proximal external carotid artery PSV is 152 cm/s. 5. The vertebral artery shows antegrade flow. 6. The subclavian artery waveforms are normal. US/US carotid duplex BI IMPRESSION: 1. RIGHT: No hemodynamically significant stenosis in carotid artery. Mild to moderate stenosis right subclavian artery suspected. 2. LEFT: No hemodynamically significant stenosis in the left carotid artery. 3. Normal antegrade flow seen in both vertebral arteries. Electronically signed by: Randal Bernabe MD 07/18/2025 03:54 PM EDT
== END 2025-07-18 12:54 | disposition home or self-care (01) ==
LOC: HO.US 12:53
PROVIDERS: Visit Provider Student in an Organized Health Care Education/Training Program
DX: H53.123 Transient visual loss, bilateral (principal)
CPT/HCPCS: 93880

== ENCOUNTER → 2025-07-18 12:54 | Outpatient (BNV) | payer BC, SELFPAY | PROVIDERS: Visit Provider Radiology Diagnostic Radiology | DX: H53.121 Transient visual loss, right eye (principal) | CPT/HCPCS: 93880 ==

== ENCOUNTER 2025-07-25 07:02 | Outpatient (RCR) | payer BC, SELFPAY ==
--- NOTE | 2025-09-18 10:57 | MHC.PT.DC ---
[facility] [place] Office [place] Office [place] Office [address] Pablo Kulkarni [address] [phone] F: [phone] F: [phone] F: [phone] F: [phone] Physical Therapy Discharge Report Diagnosis: LEFT KNEE (KP) Date of Surgery: Date of Evaluation: 06/30/25 Date of Discharge: 09/18/25 Treatments to Date: 7 Cancellations to Date: 0 No Shows to Date: 0 Discharge Status: Discharge Summary: Phoned cancelling remaining appointments, states PT is not helping and MD wishes to pursue other treatments. At this time, pt has comprehensive home program and would benefit from cont performance of exercise to improve strength and stability to self manage symptoms. Electronically signed by: Shalonda King PT DPT Please sign and return to therapist. Thank you for your referral.
== END 2025-09-18 10:56 | disposition home or self-care (01) ==
LOC: HO.PT 07:02
PROVIDERS: PCP Internal Medicine; Visit Provider Physician Assistant
DX: M70.52 Other bursitis of knee, left knee (principal)
CPT/HCPCS: 97110; 97140; 97162; 97530; 97535

== ENCOUNTER 2025-08-03 07:54 | Outpatient (REF) | payer BC, SELFPAY ==
--- OUTSIDE RECORDS SUMMARY | 2025-08-03 07:58 | XMS_ITS | Patient Health Record ---
Author Organization [facility] Address [address] [place] [address] Care Team Providers Care Clinical Laboratory Technician Name Role Phone Aileen Verma MD Primary Care Provider Unavail able ZhengJone Unavailable [phone] Allergies Allergen (clinical drug ingredient) Drug/Non Drug [...] Risk Notes Problem Mononeuropathy of lower limb (980668175) Neuritis of left foot (G57.92) Active confirmed Plan Of Treatment Pending Test Test Name Order Date X ray : Foot, left 3V 07/21/2023 Insurance Providers Payer Name Payer Address Payer Phone Subscriber Number Group Number Insured Name Patient Relationship to Insured Coverage Start Date Coverage End Date [facility] [address] [facility] [address] [id number] Herman Martinez Spouse - patient is the spouse of the insured Medical (General) History Medical History History ICD Code Arthritis Chicken pox Sleep apnea Surgical History Surgery Date(Month/Year) hysterectomy [facility].[employer] Repair 2018
[2025-08-03 11:37] LABS: Appearance Urine Clear; Glucose Urine UA Negative (Negative); PH 5.5 (5.0-9.0); Specific Gravity - Urine 1.020 (1.005-1.025)
== END 2025-08-03 07:55 | disposition home or self-care (01) ==
LOC: HO.LAB 07:54
PROVIDERS: Visit Provider Internal Medicine
DX: R30.0 Dysuria (principal)
CPT/HCPCS: 81003

== ENCOUNTER 2025-08-16 07:36 | Outpatient (REF) | payer SELFPAY ==
--- NOTE | ~2025-08-16 | XR_ITS ---
EXAMINATION: XR KNEE 4 OR MORE VIEWS LEFT HISTORY: PAIN LT KNEE COMPARISON: Comparison is made with the prior examination dated 10/20/2024 and 10/15/2024. FINDINGS: Four views of the left knee are submitted. 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 Mixed lucent and sclerotic area in the distal femur is unchanged. There is no fracture or dislocation. The joint spaces are preserved. The soft tissues are unremarkable. There is no joint effusion. XR/XR knee LT 4V IMPRESSION: No acute abnormality. Electronically signed by: Viktor Lao MD 08/16/2025 08:27 AM EDT
--- OUTSIDE RECORDS SUMMARY | 2025-08-16 07:40 | XMS_ITS | Patient Health Record ---
Author Organization [facility] Address [address] [place] [address] Care Team Providers Care Conductor And Engineer Name Role Phone Aileen Verma MD Primary Care Provider Unavail able ZhengJone Unavailable [phone] Allergies Allergen (clinical drug ingredient) Drug/Non Drug [...] Risk Notes Problem Mononeuropathy of lower limb (687707356) Neuritis of left foot (G57.92) Active confirmed Plan Of Treatment Pending Test Test Name Order Date X ray : Foot, left 3V 07/21/2023 Insurance Providers Payer Name Payer Address Payer Phone Subscriber Number Group Number Insured Name Patient Relationship to Insured Coverage Start Date Coverage End Date [facility] [address] [facility] [address] [phone] [id number] Herman Martinez Spouse - patient is the spouse of the insured Medical (General) History Medical History History ICD Code Arthritis Chicken pox Sleep apnea Surgical History Surgery Date(Month/Year) hysterectomy A.C[facility]L[employer] Repair 2018
== END 2025-08-16 07:37 | disposition home or self-care (01) ==
LOC: HO.XRAY 07:36
PROVIDERS: PCP Internal Medicine; Visit Provider Orthopaedic Surgery
DX: M25.562 Pain in left knee (principal)
CPT/HCPCS: 73564

== ENCOUNTER → 2025-08-16 07:43 | Outpatient (BNV) | payer OTHER, SELFPAY | PROVIDERS: PCP Internal Medicine; Visit Provider Radiology Diagnostic Radiology | DX: M25.562 Pain in left knee (principal) | CPT/HCPCS: 73564 ==

== ENCOUNTER 2025-09-25 08:46 | Outpatient (AMB) | payer OTHER, SELFPAY ==
[2025-09-25 08:48] VITALS: BP 138/80; PULSE 67; O2SAT 97; BMI 50.1
--- NOTE | 2025-09-25 08:48 | MHC.OFFWIV ---
Intake Vital Signs 09/25/25 08:48 Height 5 ft 4 in Weight 292 lb BMI 50.1 BP 138/80 Blood Pressure Location Lt brachial Position Sitting Pulse 67 Pulse Source Pulse Oximeter Pulse Oximetry (%) 97 Oxygen Delivery Method Room Air Intake Visit Reasons: possible pink eye Intake Note: Patient presents with c/o left eye itchy, swollen x2 days. Patient Tobacco Use Status: Never used Tobacco Allergies acetaminophen (From Percocet) Allergy (Severe, Verified 09/25/25 08:50) Hives-only in percocet form-? tylenol allergy oxycodone (From Percocet) Allergy (Severe, Verified 09/25/25 08:50) Hives-only in percocet form-? tylenol allergy meat Allergy (Severe, Uncoded 09/25/25 08:50) Foot Ulcer Do you need a note to return to daycare/school/sports/work: Yes HPI HPI Comments History of Present Illness Details 50 y/o Female presents to the walk-in clinic with c/o right eye swelling, redness, and itching for 2 days. Reports waking up with swollen eyes, redness, and difficulty opening them; right eye worse than left. Denies eye pain or vision changes. No headaches, dizziness, fevers, chills, nausea, or vomiting. Denies contact lens use. PMH significant for allergic rhinitis. [facility] Medical History (Updated 09/25/25 @ 09:22 by Rosalinda Roldan NP) Allergic conjunctivitis Fatty liver Allergic rhinitis Transaminitis Vitamin D deficiency Hirsutism Morbid obesity VIRGILIO (obstructive sleep apnea) Disc degeneration, lumbar Spondylosis of lumbosacral spine with radiculopathy Arthritis Back pain Surgical History H/O laminectomy Hx of colonoscopy History of repair of ACL History of hysterectomy Family History Father History of kidney cancer Heart disease Paternal Uncle Throat cancer Paternal Grandfather Heart disease Sister Psoriatic arthritis Mother Diabetes mellitus Other Family history of osteoarthritis Mental health disorder Social History Housing: House Are you a primary elderly caregiver to a significant other at home: No Do you presently have visiting nurse or other home services: No Alcohol intake: current Alcohol intake frequency: holidays/special occasions only Alcohol type: hard liquor Comment: uses cane on occasion Patient Tobacco Use Status: Never used Tobacco e-Cigarette/Vaping Use: Never Used Second Hand Smoke Exposure: No service: No 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al status: employed 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al exposures/hazards: No Cognitive needs: No Hearing needs: No Vision needs: Yes Review of Systems Const All systems reviewed & are unremarkable except as noted in HPI and below Physical Exam Vital Signs: Last Vital Signs Pulse 67 09/25/25 08:48 BP 138/80 09/25/25 08:48 Pulse Ox 97 09/25/25 08:48 Oxygen Delivery Method Room Air 09/25/25 08:48 BMI result Body Mass Index 50.1 Const General: no acute distress Nutritional Appearance: obese Orientation/consciousness: patient oriented x3 HEENT Head: Yes normocephalic Ears: external ears normal and TM abnormal obstructed by cerumen bilateral General nose exam: Normal external nose present Face and sinus: Yes sinuses nontender Mouth: moist mucous membranes Throat: Yes uvula midline Eyes Eyelids: Yes eyelids normal Conjunctivae: conjunctivae normal Sclerae: sclerae normal Pupils: Equal, round and reactive pupils present EOM: EOMs intact bilaterally Direct Ophthalmoscopy: normal light reflex Resp Effort & Inspection: normal respiratory effort Cardio Heart sounds: S1 normal heart sound present and S2 normal heart sound present Neuro General: patient oriented x3 Cranial nerves: Yes Equal, round and reactive pupils present Assessment & Plan Assessment & Plan (1) Allergic conjunctivitis: Code(s): H10.10 - Acute atopic conjunctivitis, unspecified eye Qualifiers: Laterality: bilateral Qualified Code(s): H10.13 - Acute atopic conjunctivitis, bilateral Plan: Continue taking Cetirizine as prescribed. Apply cool compresses to affected eye(s) 2?3 times daily for comfort Avoid rubbing eyes Monitor for signs of bacterial infection: purulent discharge, worsening pain, decreased vision, or fever?return if these occur Follow up with PCP or ophthalmology if no improvement within 3?5 days or if symptoms worsen Medications: New ketotifen fumarate 0.025%(0.035%) (Zaditor) Administer at least 8 hours apart 1 drp ophthalmic (eye) BID 5 mL 0RF H10.13 - Acute atopic conjunctivitis, bilateral Coding Level of Care Code Est Pt Level 4 (74837) Diagnoses Allergic conjunctivitis of both eyes H10.13 Laterality: bilateral Time Spent (min) 20
--- OUTSIDE RECORDS SUMMARY | 2025-09-25 09:09 | XMS_ITS | Patient Health Record ---
Author Organization [facility] Address [address] [place] [address] Care Team Providers Care Corporate Counselor Name Role Phone Aileen Verma MD Primary Care Provider Unavail able ZhengJone Unavailable [phone] Allergies Allergen (clinical drug ingredient) Drug/Non Drug [...] Risk Notes Problem Mononeuropathy of lower limb (160493269) Neuritis of left foot (G57.92) Active confirmed Plan Of Treatment Pending Test Test Name Order Date X ray : Foot, left 3V 07/21/2023 Insurance Providers Payer Name Payer Address Payer Phone Subscriber Number Group Number Insured Name Patient Relationship to Insured Coverage Start Date Coverage End Date [facility] [address] [facility] [id number] Herman Martinez Spouse - patient is the spouse of the insured Medical (General) History Medical History History ICD Code Arthritis Chicken pox Sleep apnea Surgical History Surgery Date(Month/Year) hysterectomy A.[facility] Repair 2018
== END 2025-09-25 09:31 | disposition home or self-care (01) ==
PROVIDERS: PCP Internal Medicine; Visit Provider Nurse Practitioner Family
DX: H10.13 Acute atopic conjunctivitis, bilateral (principal)

== ENCOUNTER 2025-10-03 14:51 | Outpatient (AMB) | payer OTHER, SELFPAY ==
[2025-10-03 14:59] VITALS: BMI 50.1
--- NOTE | 2025-10-03 14:59 | A.OFFVIS_ITS ---
Vital Signs 10/03/25 14:59 Height 5 ft 4 in Weight 292 lb BMI 50.1 Intake Visit Reasons: right foot pain Intake Note: Loly is a 50 year old female who presents today as a new patient for an evaluation of her right foot pain. She states the pain has been going on for over 2 years and has found that it has worsened in the past month. Pain is located in her right heel. She has tried Meloxicam, oxycodone and has found no relief for her symptoms. Allergies acetaminophen (From Percocet) Allergy (Severe, Verified 10/03/25 15:01) Hives-only in percocet form-? tylenol allergy oxycodone (From Percocet) Allergy (Severe, Verified 10/03/25 15:01) Hives-only in percocet form-? tylenol allergy meat Allergy (Severe, Uncoded 09/25/25 08:50) Foot Ulcer HPI HPI right foot pain: Details: 50-year-old female past medical history of lumbar radiculopathy, allergic rhinitis, polyarthralgia of unknown origin, presents for right heel and arch pain. The patient states she has been dealing with this for years. She has not tried any treatment recently. She has been wearing Skechers shoes with 2 in heels that appears to have helped her symptoms. She takes oxycodone and meloxicam for the left knee and thigh issue which she takes occasionally when she needs it for pain for the right heel. 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 She also states she has athlete's foot which she has had for several years and has tried multiple topical treatments that have not helped. She notes that the athlete's foot worsens whenever she eats meat. Also has a history of left Achilles tendonitis. [facility] Medical History (Updated 10/03/25 @ 15:37 by Christopher Mart DPM) Allergic conjunctivitis Fatty liver Allergic rhinitis Transaminitis Vitamin D deficiency Hirsutism Morbid obesity VIRGILIO (obstructive sleep apnea) Disc degeneration, lumbar Spondylosis of lumbosacral spine with radiculopathy Arthritis Back pain Surgical History H/O laminectomy Hx of colonoscopy History of repair of ACL History of hysterectomy Family History Father History of kidney cancer Heart disease Paternal Uncle Throat cancer Paternal Grandfather Heart disease Sister Psoriatic arthritis Mother Diabetes mellitus Other Family history of osteoarthritis Mental health disorder Social History Housing: House Are you a primary nursing care attendant to a significant other at home: No Do you presently have visiting nurse or other home services: No Alcohol intake: current Alcohol intake frequency: holidays/special occasions only Alcohol type: hard liquor Comment: uses cane on occasion Patient Tobacco Use Status: Never used Tobacco e-Cigarette/Vaping Use: Never Used Second Hand Smoke Exposure: No service: No 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al status: employed 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 Neuro: Protective sensation intact to bilateral lower extremities MSK: Moderate tenderness on palpation of the plantar lateral fascial band along the level of the calcaneocuboid joint. Ankle dorsiflexion 0 degrees on knee extension, 2-3 degrees on knee flexion. Assessment & Plan Assessment & Plan (1) Plantar fasciitis of right foot: Code(s): M72.2 - Plantar fascial fibromatosis Category: Medical Plan: * Discussed etiology of the patient's foot pain. Differential diagnosis includes plantar fasciitis, neuritis, tendinitis. * Patient educated on the nature and etiology of plantar fasciitis, which involves inflammation and microtearing of the plantar fascia due to repetitive stress and overuse. * Rx X-ray 3V right foot * The patient was counseled on conservative management of plantar fasciitis, including daily stretching exercises targeting the plantar fascia and Achilles tendon, use of supportive and properly fitting footwear, and consideration of custom or prefabricated orthotics to improve foot biomechanics. * Discussed that if symptoms persist despite these measures, further interventions such as corticosteroid injections may be considered. The patient states that this time, she is not interested in corticosteroid injections as they never help her. * Instructed the patient on home stretching and range of motion exercises including calf-stretches, frozen water bottle therapy, band-therapy. A handout was dispensed. * Recommended supportive shoe-wear with arch-supports to avoid increased loading on the patient's plantar fascia band. * Follow up in 3 weeks (2) Tinea pedis: Code(s): B35.3 - Tinea pedis Category: Medical Qualifiers: Laterality: bilateral Qualified Code(s): B35.3 - Tinea pedis Plan: * Rx nystatin powder between toes * Rx Lamisil cream to bottom of feet * Recommend allergy referral due to fungal/dermatitis flares and polyarthralgia Orders: Orders XR foot RT min 3V Today M72.2 - Plantar fascial fibromatosis Medications: New nystatin apply to interspaces between toes 1 appl topical DAILY 30 grams 3RF interspace tinea B35.3 - Tinea pedis terbinafine HCl 1% (Lamisil AT) apply to bottom of feet 1 appl topical BID 30 grams 3RF Coding Level of Care Code New Pt Level 4 (75386) Diagnoses Plantar fasciitis of right foot M72.2 Tinea pedis of both feet B35.3 Laterality: bilateral Time Spent (min) 30
--- OUTSIDE RECORDS SUMMARY | 2025-10-04 12:46 | XMS_ITS | Patient Health Record ---
Author Organization [facility] Address [address] [place] [address] Care Team Providers Care Fleet Administrator Name Role Phone Aileen Verma MD Primary Care Provider Unavail able ZhengJone Unavailable [phone] Allergies Allergen (clinical drug ingredient) Drug/Non Drug [...] Risk Notes Problem Mononeuropathy of lower limb ([id number]) Neuritis of left foot (G57.92) Active confirmed Plan Of Treatment Pending Test Test Name Order Date X ray : Foot, left 3V 07/21/2023 Insurance Providers Payer Name Payer Address Payer Phone Subscriber Number Group Number Insured Name Patient Relationship to Insured Coverage Start Date Coverage End Date [facility] [address] [facility] [id number] Herman Martinez Spouse - patient is the spouse of the insured Medical (General) History Medical History History ICD Code Arthritis Chicken pox Sleep apnea Surgical History Surgery Date(Month/Year) hysterectomy A.C.L. Repair 2018
== END 2025-10-03 15:23 | disposition home or self-care (01) ==
LOC: HO.HPODS 14:52
PROVIDERS: PCP Internal Medicine; Visit Provider Student in an Organized Health Care Education/Training Program
DX: M72.2 Plantar fascial fibromatosis (principal); B35.3 Tinea pedis
CPT/HCPCS: 99204

== ENCOUNTER 2025-10-09 11:28 | Outpatient (REF) | payer OTHER, SELFPAY ==
--- NOTE | ~2025-10-09 | XR_ITS ---
EXAMINATION: XR FOOT, RIGHT CLINICAL INFORMATION: M72.2 - Plantar fascial fibromatosis COMPARISON: 01/16/2021. TECHNIQUE: AP, lateral, and oblique views of the right foot. All views performed weightbearing. FINDINGS: No fracture, dislocation, or suspicious bone lesion. There is normal alignment. Joint spaces are preserved. There is a normal plantar arch. Small to moderate-sized plantar calcaneal spur. There is a tiny dorsal spur. The midfoot and hindfoot otherwise image normally. There is no soft tissue abnormality. XR/XR foot RT min 3V IMPRESSION: 1. No acute bony or soft tissue abnormality of the right foot. 2. There is a small to moderate-sized plantar calcaneal spur. Electronically signed by: Cordell Chavez MD 10/09/2025 12:15 PM [facility]
== END 2025-10-09 11:29 | disposition home or self-care (01) ==
LOC: HO.XRAY 11:28
PROVIDERS: PCP Internal Medicine; Visit Provider Student in an Organized Health Care Education/Training Program
DX: M72.2 Plantar fascial fibromatosis (principal)
CPT/HCPCS: 73630

== ENCOUNTER → 2025-10-09 11:32 | Outpatient (BNV) | payer OTHER, SELFPAY | PROVIDERS: PCP Internal Medicine; Visit Provider Radiology Diagnostic Radiology | DX: M77.31 Calcaneal spur, right foot (principal) | CPT/HCPCS: 73630 ==

== ENCOUNTER 2025-10-23 13:25 | Outpatient (AMB) | payer OTHER, SELFPAY ==
[2025-10-23 13:29] VITALS: BP 130/80; PULSE 72; TEMP 36.2; O2SAT 98; BMI 50.1
--- NOTE | 2025-10-23 13:29 | MHC.PC.OV ---
Vital Signs 10/23/25 13:29 Height 5 ft 4 in Weight 292 lb BMI 50.1 BP 130/80 Blood Pressure Location Lt brachial Position Sitting Pulse 72 Pulse Source Pulse Oximeter Temp 97.1 F Temp Source Temporal Artery Scan Pulse Oximetry (%) 98 Oxygen Delivery Method Room Air Intake Visit Reasons: RQ Pain Marketing Systems Manager Required: No Accompanied by: Self / Same As Patient Allergies acetaminophen (From Percocet) Allergy (Severe, Verified 10/23/25 13:53) Hives-only in percocet form-? tylenol allergy oxycodone (From Percocet) Allergy (Severe, Verified 10/23/25 13:53) Hives-only in percocet form-? tylenol allergy meat Allergy (Severe, Uncoded 10/23/25 13:53) Foot Ulcer Medication List - Last Reconciled 10/23/25 by Aileen Isabel MD cetirizine 10 mg PO DAILY PRN 90 days cholecalciferol (vitamin D3) 50 mcg PO QAM diclofenac sodium 1% (Aleve (diclofenac)) 2 grams topical QID PRN ketotifen fumarate 0.025%(0.035%) (Zaditor) 1 drp ophthalmic (eye) BID nystatin 1 appl topical DAILY oxycodone 5 mg PO Q8H PRN oxycodone 5 mg PO Q6-8H PRN pentoxifylline ER 400 mg PO TID terbinafine HCl 1% (Lamisil AT) 1 appl topical BID vitamin E (dl, acetate) 180 mg PO QAM Tobacco use date assessed: 10/23/25 Dental Screening Dental Screen Date: 10/23/25 Did you have a dental visit in the last 12 months?: No Did you have a dental problem in the last 6 months where you did not have access to dental care?: No HPI HPI Comments History of Present Illness Details The patient is a 50 year old female presenting for evaluation of right costovertebral tenderness. She has a known allergy to Percocet. Current medications include cetirizine for allergies, vitamin D, nystatin as needed, oxycodone for pain, and pentoxifylline. She reports having arthritis pain and occasionally takes oxycodone for it. She has a history of abdominal pain so severe that she could not walk, which prompted an abdomen ultrasound in the past, though records of this are not available. She also has a history of a heel spur. Past workup includes foot and knee x-rays, and a bone densitometry in March which was normal. She had a Doppler study in July which was normal. She experienced an episode of vision loss, for which an evaluation was done to rule out an occlusion, and none was found. She has a history of kidney stones. She has also been diagnosed with fatty liver. Her last urinalysis was in July. [facility] Medical History (Updated 10/23/25 @ 14:07 by Aileen Isabel MD) Allergic conjunctivitis Fatty liver Allergic rhinitis Transaminitis Vitamin D deficiency Hirsutism Morbid obesity VIRGILIO (obstructive sleep apnea) Disc degeneration, lumbar Spondylosis of lumbosacral spine with radiculopathy Arthritis Back pain Surgical History H/O laminectomy Hx of colonoscopy History of repair of ACL History of hysterectomy Family History Father History of kidney cancer Heart disease Paternal Uncle Throat cancer Paternal Grandfather Heart disease Sister Psoriatic arthritis Mother Diabetes mellitus Other Family history of osteoarthritis Mental health disorder Social History Housing: House Are you a primary child care specialist to a significant other at home: No Do you presently have visiting nurse or other home services: No Alcohol intake: current Alcohol intake frequency: holidays/special occasions only Alcohol type: hard liquor Comment: uses cane on occasion Patient Tobacco Use Status: Never used Tobacco e-Cigarette/Vaping Use: Never Used Second Hand Smoke Exposure: No service: No 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al status: employed 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 1. Little interest or pleasure in doing things: not at all 2. Feeling down, depressed, or hopeless: not at all 3. Trouble falling or staying asleep, or sleeping too much: not at all 4. Feeling tired or having little energy: not at all 5. Poor appetite or overeating: not at all 6. Feeling bad about yourself - or that you are a failure or have let yourself or your family down: not at all 7. Trouble concentrating on things, such as reading the newspaper or watching television: not at all 8. Moving or speaking so slowly that other people could have noticed. Or the opposite - being so fidgety or restless that you have been moving around a lot more than usual: not at all 9. Thoughts that you would be better off or of hurting yourself in some way: not at all Total score: 0 Depression Screening Interpretation: Negative Depression Screening Done: Yes 39157 - PHQ-9 Billing: Yes Source: Developed by Drs. Viktor Ching, Lola Martin, Rosas Yu and colleagues, with an educational harris from [employer]. Thrive Questionnaire Date Thrive assessed: 10/23/25 I am a: Patient What is your living situation today?: I have a steady place to live Within the past 12 months, did the food you bought not last and you didn't have the money to get more?: Never true Within the past 12 months, did you worry whether your food would run out before you got money to buy more?: Never true Do you have trouble paying for medicines?: No Do you have trouble getting transportation to medical appointments?: No Do you have trouble paying your heating and electricity bill?: No Do you have trouble taking care of your child, family member or friend?: No Do you have trouble with day-to-day activities such as bathing, preparing meals, shopping, managing finances, etc.?: No Are you currently unemployed and looking for a job?: No Are you interested in more education?: No Please select the resources that you would like help with: None Currently or been in a relationship where the following occur: No concerns reported THRIVE Score: 0 AUDIT C Alcohol Use Questionnaire (AUDIT-C) 1. How often do you have a drink containing alcohol?: Monthly or less 2. How many drinks containing alcohol do you have on a typical day when you are drinking?: 1 or 2 3. How often do you have six or more drinks on one occasion?: Less than monthly Total Score: 2 Score Reviewed/Action Taken: No ASHER-7 AMB Questionnaire ASHER-7 Date ASHER - 7 assessed: 10/23/25 Feeling nervous, anxious, or on edge: 0 = Not at all Not being able to stop or control worryin = Not at all Worrying too much about different things: 0 = Not at all Trouble relaxin = Not at all Being so restless that it is hard to sit still: 0 = Not at all Becoming easily annoyed or irritable: 0 = Not at all Feeling afraid as if something awful might happen: 0 = Not at all Total ASHER-7 score (0-4 normal; 5-9 mild; 10-14 moderate; 15-21 severe): 0 Source: Developed by Drs. Viktor Ching, Lola Martin, Rosas Yu and colleagues, with an educational harris from [employer]. ASHER-7 Assessment Billing ASHER-7 Assessment Tool: ASHER-7 Assessment 16119 Review of Systems Const All systems reviewed & are unremarkable except as noted in HPI and below Card Denies chest pain at rest, Denies chest pain with activity, Denies edema, Denies irregular heart rhythm, Denies claudication, Denies dyspnea, Denies dyspnea on exertion, Denies orthopnea, Denies paroxysmal nocturnal dyspnea and Denies slow heart rate Resp Denies cough, Denies dyspnea and Denies dyspnea on exertion Physical exam (Primary Care) Vital Signs: Last Vital Signs Temp 97.1 F 10/23/25 13:29 Pulse 72 10/23/25 13:29 BP 130/80 10/23/25 13:29 Pulse Ox 98 10/23/25 13:29 Oxygen Delivery Method Room Air 10/23/25 13:29 BMI result Body Mass Index 50.1 BMI Assessment/Plan discussion: High BMI High, discussed plan: lifestyle, weight reduction, dietary and physical activity Tobacco/Smoking Status: Tobacco use Status Tobacco use date assessed 10/23/25 10/23/25 13:30 Patient Tobacco Use Status Never used Tobacco 10/23/25 13:30 e-Cigarette/Vaping Use Never Used 10/23/25 13:30 PHQ-9: PHQ-9 Score PHQ-9: Total score 0 10/23/25 13:57 Depression Screening Interpretation: Negative Thrive Assessment: Date of Thrive Assessment Date Thrive assessed 10/23/25 10/23/25 13:30 Currently or been in a relationship where the following occur: No concerns reported Resp Effort & Inspection: normal respiratory effort Auscultation: clear to auscultation bilaterally Cardio Jugular venous distension: no JVD Rate: regular rate Rhythm: regular rhythm Heart sounds: S1 normal heart sound present and S2 normal heart sound present Extrem General: Yes full ROM Coding Level of Care Code Est Pt Level 3 (34385) Diagnoses Nephrolithiasis N20.0 Morbid obesity E66.01 Right foot pain M79.671 Additional Codes ASHER-7 Assessment Billing - ASHER-7 Assessment Tool: ASHER-7 Assessment 94414 ([id number]) PHQ-9 - 66934 - PHQ-9 Billing: Yes ([id number]) Time Spent (min) 19 Assessment & Plan Assessment & Plan (1) Nephrolithiasis: Code(s): N20.0 - Calculus of kidney Category: Medical (2) Morbid obesity: Comment: PATIENT IS WELL AWARE OF THE FACT THAT SHE HAS MORBID OBESITY. AND SHE DOES HAVE INTENTION TO LOSE WEIGHT , HOWEVER SHE HAS NOT SUCCEEDED SO FAR. CLAIMS THAT SHE HAD A FALL AND HAS BACK PAIN AND PAIN IN THE LEGS AND IS NOT ABLE TO DO MUCH EXERCISE. Code(s): E66.01 - Morbid (severe) obesity due to excess calories Category: Medical (3) Right foot pain: Code(s): M79.671 - Pain in right foot Category: Medical Plan Plan 1. Nephrolithiasis US ordered. 2. Morbid Obesity Diet and exercise were discussed as part of the plan for her morbid obesity. Orders: Orders US renal BI Today N20.0 - Calculus of kidney Comprehensive [place]. Panel Fast Today N20.0 - Calculus of kidney Lipid Panel Today E78.5 - Hyperlipidemia, unspecified Vitamin D 25-OH Total Today E55.9 - Vitamin D deficiency, unspecified Medications: Refilled cetirizine 10 mg PO DAILY PRN 90 tabs 1RF Allergy Symptoms 90 days
--- OUTSIDE RECORDS SUMMARY | 2025-10-23 22:11 | XMS_ITS | Patient Health Record ---
Author Organization [facility] Address [address] [address] Care Team Providers Care Assistant Merchandise Manager Name Role Phone Aileen Verma MD Primary Care Provider Unavail able ZhengJone Unavailable [phone] Allergies Allergen (clinical drug ingredient) Drug/Non Drug [...] Risk Notes Problem Mononeuropathy of lower limb (007899485) Neuritis of left foot (G57.92) Active confirmed Plan Of Treatment Pending Test Test Name Order Date X ray : Foot, left 3V 07/21/2023 Insurance Providers Payer Name Payer Address Payer Phone Subscriber Number Group Number Insured Name Patient Relationship to Insured Coverage Start Date Coverage End Date [facility] [address] [facility] [id number] Herman Martinez Spouse - patient is the spouse of the insured Medical (General) History Medical History History ICD Code Arthritis Chicken pox Sleep apnea Surgical History Surgery Date(Month/Year) hysterectomy A.[facility] Repair 2018
== END 2025-10-23 14:07 | disposition home or self-care (01) ==
LOC: HO.HMCH 13:26
PROVIDERS: PCP Internal Medicine; Visit Provider Internal Medicine
DX: N20.0 Calculus of kidney (principal); E66.01 Morbid (severe) obesity due to excess calories; Z68.43 Body mass index [BMI] 50.0-59.9, adult; M79.671 Pain in right foot

== ENCOUNTER → 2025-10-23 13:25 | Outpatient (BNVA) | payer OTHER, SELFPAY | PROVIDERS: PCP Internal Medicine; Visit Provider Internal Medicine | DX: N20.0 Calculus of kidney (principal); E66.01 Morbid (severe) obesity due to excess calories; M79.671 Pain in right foot; Z68.43 Body mass index [BMI] 50.0-59.9, adult | CPT/HCPCS: 96127 ==

== ENCOUNTER 2025-10-27 07:31 | Outpatient (REF) | payer OTHER, SELFPAY ==
--- NOTE | ~2025-10-27 | US_ITS ---
CLINICAL HISTORY: N20.0 - Calculus of kidney US Renal Comparison: None provided Findings: Right kidney normal size and echotexture, 13.6 cm length. Left kidney normal size and echotexture, 11.7 cm length. No hydronephrosis of either kidney. Normal color Doppler IMPRESSION: 1. Normal kidneys. This document has been electronically signed by: Raghu Bro MD on 10/27/2025 11:44:48
--- OUTSIDE RECORDS SUMMARY | 2025-10-27 07:35 | XMS_ITS | Patient Health Record ---
Author Organization [facility] Address [address] [place] [address] Care Team Providers Care Putter In Name Role Phone Aileen Verma MD Primary Care Provider Unavail able ZhengJone Unavailable [phone] Allergies Allergen (clinical drug ingredient) Drug/Non Drug [...] Risk Notes Problem Mononeuropathy of lower limb (633165477) Neuritis of left foot (G57.92) Active confirmed Plan Of Treatment Pending Test Test Name Order Date X ray : Foot, left 3V 07/21/2023 Insurance Providers Payer Name Payer Address Payer Phone Subscriber Number Group Number Insured Name Patient Relationship to Insured Coverage Start Date Coverage End Date [facility] [address] [facility] [phone] [id number] Herman Martinez Spouse - patient is the spouse of the insured Medical (General) History Medical History History ICD Code Arthritis Chicken pox Sleep apnea Surgical History Surgery Date(Month/Year) hysterectomy A.C.L. Repair 2018
--- OUTSIDE RECORDS SUMMARY | 2025-10-27 07:35 | XMS_ITS | Continuity of Care Document ---
Author Organization [facility] Address [address] [place] [id number] Insurance Providers Payer Plan Claims Address Claims Phone Policy Number Group Number Relation Employer Guarantor Name Guarantor Guarantor Address Guarantor Phone [facility] [employer], [address], [place] [address] tel:[phone] [id number] Josie Loly SoRony ni 1975 [address] [place] [address] Problems Condition ICD9 code ICD10 code SNOMED code Start Date End Date S tatus Encounter for screening for other metabolic disorders Z13.228 Results No Results Allergies, adverse reactions, alerts No known allergies and adverse reactions Medications No administered medications reported Vital Signs No vital signs reported Social History No smoking Hx information available
== END 2025-10-27 07:32 | disposition home or self-care (01) ==
LOC: HO.US 07:31
PROVIDERS: PCP Internal Medicine; Visit Provider Internal Medicine
DX: N20.0 Calculus of kidney (principal)
CPT/HCPCS: 76775

== ENCOUNTER → 2025-10-27 07:33 | Outpatient (BNV) | payer OTHER, SELFPAY | PROVIDERS: PCP Internal Medicine; Visit Provider Specialist | DX: N20.0 Calculus of kidney (principal) | CPT/HCPCS: 76775 ==

== ENCOUNTER 2025-11-13 09:36 | Outpatient (REF) | payer OTHER, SELFPAY ==
--- OUTSIDE RECORDS SUMMARY | 2025-11-13 10:14 | XMS_ITS | Patient Health Record ---
Author Organization [facility] Address [address] [place] [address] Care Team Providers Care Computer Artist Name Role Phone Aileen Verma MD Primary Care Provider Unavail able Zheng Jone Unavailable [phone] Allergies Allergen (clinical drug ingredient) Drug/Non Drug [...] Risk Notes Problem Mononeuropathy of lower limb (614453519) Neuritis of left foot (G57.92) Active confirmed Plan Of Treatment Pending Test Test Name Order Date X ray : Foot, left 3V 07/21/2023 Insurance Providers Payer Name Payer Address Payer Phone Subscriber Number Group Number Insured Name Patient Relationship to Insured Coverage Start Date Coverage End Date [facility] [address] [facility] [phone] [id number] Herman Martinez Spouse - patient is the spouse of the insured Medical (General) History Medical History History ICD Code Arthritis Chicken pox Sleep apnea Surgical History Surgery Date(Month/Year) hysterectomy A.C.L. Repair 2018
[2025-11-13 11:12] LABS: Alanine Aminotransferase 57 U/L (0-31); Albumin Level 4.5 g/dL (3.5-5.0); Alkaline Phosphatase 86 U/L (39-117); Anion Gap 12 (12-20); Aspartate Amino Transferase 38 U/L (5-31); Blood Urea Nitrogen 15 mg/dL (9-16); Calcium 9.5 mg/dL (8.4-10.2); Carbon Dioxide 26 mmol/L (22-29); Chloride 111 mmol/L (96-108); Cholesterol 163 mg/dL (<200); Estimated Glomerular Filt Rate > 60; HDL Cholesterol 48 mg/dL (>40); Potassium 4.6 mmol/L (3.3-5.1); Sodium 144 mmol/L (135-145); Total Protein 7.2 g/dL (6.5-8.0); Triglycerides 108 mg/dL (<150)
== END 2025-11-13 09:37 | disposition home or self-care (01) ==
LOC: HO.LAB 09:36
PROVIDERS: PCP Internal Medicine; Visit Provider Internal Medicine
DX: N20.0 Calculus of kidney (principal); E78.5 Hyperlipidemia, unspecified; E55.9 Vitamin D deficiency, unspecified
CPT/HCPCS: 36415; 80053; 80061; 82306